=== PATIENT | female | born 1940 | race Caucasian/White ===

== ENCOUNTER 2020-08-03 23:32 | Emergency (ER) | payer MEDICARE, BC, SELFPAY ==
[2020-08-03 23:32] VITALS: BP 164/78; PULSE 68; RESP 8; TEMP 36.4; O2SAT 99; BMI 28.3
--- NOTE | 2020-08-04 00:09 | EKG12_ITS ---
Test Reason : Blood Pressure : / mmHG Vent. Rate : 063 BPM Atrial Rate : 063 BPM P-R Int : 148 ms QRS Dur : 094 ms QT Int : 424 ms P-R-T Axes : 085 -04 -13 degrees QTc Int : 433 ms Normal sinus rhythm Minimal voltage criteria for LVH, may be normal variant Nonspecific T wave abnormality Abnormal ECG Confirmed by ANALIA LANZA, CHRISTIANO ([id number]), editor publications SERGEY SUBRAMANIAN ([id number]) on 08/07/2020 2:50:30 PM Referred By: JUAN Confirmed By:CHRISTIANO HELMS MD
--- NOTE | 2020-08-04 00:09 | CT_ITS ---
STUDY: CT ABDOMEN AND PELVIS WITHOUT CONTRAST REASON FOR EXAM: Female, 80 years old. Pain upper abd, nausea RADIATION DOSAGE (If Supplied By Facility): CTDIvol = ( 8.85 ) mGy, DLP = ( 384.64 ) mGycm TECHNIQUE: Transaxial images were obtained from the dome of the diaphragm to the symphysis pubis without oral contrast, and without intravenous contrast. Sagittal and coronal images were reconstructed. Individualized dose optimization techniques were used for this CT. COMPARISON: None. FINDINGS: Questionable mass in the right lung base measuring 4.8 x 2.6 cm. Otherwise, lung bases are clear. The visualized portions of the heart are within normal limits. Normal liver. Normal gallbladder and extrahepatic biliary system. Normal spleen. Normal pancreas. Normal bilateral adrenal glands. Normal right kidney. Normal left kidney. Normal visualized stomach. Normal small intestine. There are multiple colonic diverticula consistent with diverticulosis. There is non-visualization of the appendix. There is diffuse atherosclerotic calcification of the abdominal aorta, without a demonstrated aneurysm. Normal inferior vena cava. Normal retroperitoneum. Normal urinary bladder. There is atrophy of the uterus. Normal abdominal wall. There are diffuse degenerative changes of the visualized lumbar spine. Vertebral plane of the T12 vertebral body CT/Abdomen/Pelvis without Cont IMPRESSION: No acute intracranial pathology. Suspected mass in the right lung base. Consider PET/CT to further follow-up versus tissue sampling. Pulmonary consultation recommended Electronically Signed: Ezra Baeza DO at 1:23 EDT Tel , Service support ,
--- NOTE | 2020-08-04 00:10 | ED.VIS.GI ---
HPI HPI - GI History of Present Illness Chief Complaint: Abd Pain Informant: patient and family (son) Abdominal Pain/Flank Pain Onset: Today (several hours) Context: Gradual Onset Timing: Continuous Quality: Aching Location: Epigastric Current Severity: Moderate Maximum Severity: Moderate Worsened by: Nothing Relieved by: Nothing Nausea/Vomiting/Emesis GI Symptom: Positive for Nausea; Negative for Vomiting Diarrhea/Melena/Hematochezia GI Symptom: Positive for Diarrhea; Negative for Melena and Hematochezia Onset: Today Stool Quality: Positive for Watery Episodes: 2 Associated Symptoms Associated Symptoms: Negative for Dysuria, Frequency, Hematuria and Urgency Narrative Narrative: 80-year-old female who was hospitalized several weeks ago for congestive heart failure in [place] where she used to live, presenting tonight with upper abdominal pain, nausea, couple bouts of watery nonbloody nonmelanotic diarrhea. No fevers or chills. She denies any shortness of breath or chest pains up into her chest. She is on Eliquis but neither her nor her son know exactly why. He states he does not know of any blood clots or dysrhythmias but she has an ejection fraction around 35%. She chronically has edema in her legs, that is similar to usual right now, she was recently diuresed fairly aggressively in the hospital before she came back here to live with her son, she traveled around 6 days ago. She denies any sick contacts that she knows of. She has never had Covid, and she declined to get the vaccine. She denies having any suspicious foods lately that she feels could be related to this. [facility] Medical History Asthma Congestive heart failure (CHF) Diabetes Heart failure with reduced left ventricular function Home Medications Unobtainable 08/04/20 [History Last Taken Unknown] pantoprazole [Protonix] 40 mg PO DAILY #14 tab 08/04/20 [Rx Last Taken Unknown] Allergy/AdvReac Type Severity Reaction Status Date / Time Penicillins Allergy PT UNSURE Verified 08/03/20 23:35 OF REACTION Surgical History History of Social History Smoking Status: Unknown if ever smoked ROS ROS ED Constitutional Constitutional ED: Denies chills or fever(s) Eyes Eyes: Denies change in vision or diplopia ENT ENT ED: Denies rhinorrhea or sore throat Cardiovascular Cardiovascular: Denies chest pain or palpitations Respiratory/Chest Respiratory/Chest: Denies cough or dyspnea Gastrointestinal Gastrointestinal: Reports as per HPI, abdominal pain, diarrhea and nausea; Denies vomiting Genitourinary Genitourinary ED: Denies dysuria or hematuria Musculoskeletal Musculoskeletal: Denies back pain or neck pain Integumentary Denies abscess or rash Neurologic Neurologic: Denies headache(s), paresthesias or weakness Psychiatric Psychiatric: Denies anxiety or suicidal thoughts EXAM Physical Exam Const Vital Signs: 08/03/20 23:32 08/04/20 01:31 Temperature 97.6 F L 98.1 F Temperature Source Temporal Temporal Pulse Rate 68 72 Respiratory Rate 8 L 16 Blood Pressure 164/78 H 176/71 H Blood Pressure Mean 106 106 Pulse Ox 99 99 Oxygen Delivery Method Room Air Nasal Cannula Oxygen Flow Rate (L/min) 2 Positive well nourished and well developed General Appearance ED: well developed and NAD HEENT Reports moist mucous membranes normocephalic and atraumatic Eyes PERRL and EOMs intact bilaterally Neck full ROM and supple Resp normal respiratory effort and clear to auscultation bilaterally Cardio regular rate, regular rhythm and no murmurs GI non-distended Auscultation: normoactive bowel sounds Palpation: soft and tender other (Mildly tender across upper abdomen only); Negative for guarding or rebound tenderness present Back/Spine no CVA tenderness General Back: other FROM Extremity normal to inspection General Extremety ED: Negative for edema, pulses abnormal or tenderness General Extremity: Negative for edema or pulses abnormal Neuro oriented x3, CN's II-XII intact bilaterally and no sensory deficits noted Sensorium / Orientation: awake and alert Motor Exam: strength 5/5 throughout Skin no rashes or lesions noted and no wounds MDM MDM MDM Narrative Medical decision making narrative: Patient was given a GI cocktail, Zofran, and dicyclomine and she feels much better on reevaluation. Work-up as noted below, renal insufficiency as well as the mass in her right lung. This was not known to her. We discussed the possibility of cancer, but there is no lymphadenopathy noted on the CT. She smoked for 10 years and stopped maybe 25 years ago. She does not have a history of other cancer that she knows of. She did say something about having her omentum removed long ago but I am unclear why. I think this mass is incidental and probably unrelated to her symptoms tonight. She does not appear to be in acute congestive heart failure. Give her a dose of Protonix, her symptoms sound upper GI in etiology, as well as a prescription for a 2-week course and referrals to PCP, pulmonology, and cardiology. Additionally, I performed a bedside ultrasound since the patient is here at night when radiology ultrasound is not available, looking at her gallbladder; I see no stones, she has no sonographic Zaragoza's, and the wall is normal grossly. She and son are comfortable with this overall plan. Lab Data Attestation: I reviewed the patient's lab results. Labs: Laboratory Results - last 24 hr 08/04/20 08/04/20 08/04/20 00:14 00:35 01:30 WBC 9.0 RBC 3.26 L Hgb 10.0 L Hct 30.9 L MCV 94.8 MCH 30.7 MCHC 32.4 RDW Std Deviation 42.1 RDW Coeff of Arik 12.0 Plt Count 285 MPV 9.7 Immature Gran % (Auto) 0.300 Neut % (Auto) 62.1 Lymph % (Auto) 18.4 L Power % (Auto) 12.2 H Eos % (Auto) 6.3 H Baso % (Auto) 0.7 Absolute Neuts (auto) 5.6 Absolute Lymphs (auto) 1.65 Nucleated RBC % 0 Sodium 138 Potassium 4.4 Chloride 105 Carbon Dioxide 26.0 Anion Gap 7 BUN 58 H Creatinine 2.13 H Estim Creat Clear Calc 19.27 Est GFR (MDRD) Af Amer 29 L Est GFR (MDRD) Non-Af 24 L BUN/Creatinine Ratio 27.2 H Glucose 248 H Calcium 8.6 Total Bilirubin 0.30 AST 18 ALT 21 Alkaline Phosphatase 75 Troponin I 0.027 Total Protein 6.7 Albumin 3.0 L Globulin 3.7 Albumin/Globulin Ratio 0.8 L Lipase 68 L Urine Color Yellow Urine Clarity Clear Urine pH 6.0 Ur Specific [place] 1.010 Urine Protein 100 H Urine Glucose (UA) 250 H Urine Ketones Negative Urine Occult Blood 10 H Urine Nitrite Negative Urine Bilirubin Negative Urine Urobilinogen Normal Ur Leukocyte Esterase 100 H Urine RBC 0-5 SEEN Urine WBC 5-10 SEEN Ur Squamous Epith Cells 0-5 SEEN Urine Bacteria 0 SEEN Urine Mucus 0 SEEN Radiography Diagnostic Testing: Radiology Impression Abdomen/Pelvis CT 08/04/20 00:09 IMPRESSION: No acute intracranial pathology. Suspected mass in the right lung base. Consider PET/CT to further follow-up versus tissue sampling. Pulmonary consultation recommended Electronically Signed: Ezra Baeza DO at 1:23 EDT Tel , Service support , Chest X-Ray 08/04/20 00:55 IMPRESSION: Normal x-ray examination of the chest. Electronically Signed: Ezra Baeza DO at 1:14 EDT Tel , Service support , EKG Initial EKG: Attestation: I personally reviewed and interpreted this EKG as follows: Interpretation: Sinus Rhythm, No Acute Injury Pattern and Non-Specific ST Changes Prior EKG tracings: not available for review Discharge Plan Triage Chief Complaint: Abd Pain ED Provider: Jonny Jara Dx/Rx/DC Orders Clinical Impression: Acute upper abdominal pain, Mass of right lung Instructions: ED Epigastric Pain (Uncertain Cause) Prescriptions: New pantoprazole [Protonix] 40 mg tablet,delayed release (DR/EC) 40 mg PO DAILY Qty: 14 RF: 0 No Action Unobtainable RF: 0 Primary Care Provider: Care Physician,No Primary Referrals: Pasquale Cordero MD [STAFF PHYSICIAN] - Berlin Leahy MD [STAFF PHYSICIAN] - Brian Dumont Chi, MD [COURTESY STAFF PHYSICIAN] - Disposition Disposition: Home, self care
[2020-08-04] MEDS: Mag Hydrox/Al Hydrox/Simeth 30 ML UDC PO (00:25)
[2020-08-04] MEDS: Ondansetron 4 MG/2 ML Vial IV (00:25)
[2020-08-04] MEDS: Dicyclomine 10 MG Capsule 20 MG PO (00:25)
[2020-08-04 00:42] LABS: Absolute Lymphocyte Count 1.65 X10^3/uL (0.83-4.51); Absolute Neutrophil Count 5.6 X10^3/uL (2.0-7.7); Basophil# 0.06 X10^3/uL; Basophil% 0.7 % (0-1); Eosinophil# 0.56 X10^3/uL; Eosinophils% 6.3 % (0-5); Hematocrit 30.9 % (37-47); Lymphocyte # 1.65 X10^3/ul (0.83-4.51); Lymphocyte % 18.4 % (19-41); Mean Corp Hgb Conc 32.4 g/dL (32-36); Mean Corpuscular Hgb 30.7 pg (27.0-32.0); Mean Corpuscular Volume 94.8 fL (81-99); Mean Platelet Vol. 9.7 fl (6.2-12.0); Monocyte# 1.09 X10^3/uL; Monocyte% 12.2 % (0-10); NRBC Flagged by Analyzer 0 % (0-5); Neutrophil # 5.56 X10^3/uL (2.7-7.7); Neutrophil % 62.1 % (47-70); Platelet Count 285 K/mm3 (150-450); RBC Distribution Width SD 42.1 fl (35.1-43.9); Red Blood Count 3.26 M/mm3 (4.2-5.4)
[2020-08-04 00:44] LABS: ALB/GLOB Ratio 0.8 RATIO (0.9-2.4); AST(SGOT) 18 U/L (15-37); Alanine Aminotransfer ALT/SGPT 21 U/L (13-56); Alkaline Phosphatase 75 U/L (45-117); Anion Gap 7 (5-15); BUN 58 mg/dL (7-18); BUN/Creat Ratio 27.2 RATIO (10-20); Calcium,Total 8.6 mg/dL (8.5-10.1); Chloride 105 mmol/L (98-107); Creatinine, Serum 2.13 mg/dL (0.55-1.02); EST Glomerular Filtration Rate 24 mL/min (>60); Est Glom Filt Rate - Afr Amer 29 mL/min (>60); Estimated Creatinine Clearance 19.27 ml/min; Globulin 3.7 g/dL (2.2-4.2); Glucose 248 mg/dL (74-106); Lipase 68 U/L (73-393); Potassium 4.4 mmol/L (3.5-5.1); Protein, Total 6.7 g/dL (6.4-8.2); Sodium Level 138 mmol/L (136-145)
--- NOTE | 2020-08-04 00:55 | RAD_ITS ---
STUDY: X-RAY CHEST REASON FOR EXAM: Female, 80 years old. upper abd pain, CHF TECHNIQUE: Single AP portable view of the chest. COMPARISON: None. FINDINGS: The lungs are clear and expanded. There is no demonstrated pleural abnormality. There is borderline cardiomegaly. Normal mediastinum and nilay. Normal visualized pulmonary arteries. Normal visualized aortic arch and descending thoracic aorta. Normal visualized thoracic spine. Normal visualized ribs, clavicles, and shoulders. There is no demonstrated abnormality of the visualized soft tissue structures of the upper abdomen. RAD/Chest 1 View (Portable) IMPRESSION: Normal x-ray examination of the chest. Electronically Signed: Ezra Baeza DO at 1:14 EDT Tel , Service support ,
[2020-08-04 01:31] VITALS: BP 176/71; PULSE 72; RESP 16; TEMP 36.7; O2SAT 99
[2020-08-04 01:37] LABS: Bacteria 0 SEEN /hpf (None Seen); Color, Urine Yellow (Yellow); Glucose, Dipstick 250 mg/dl (Normal); Ketone-Dipstick Negative (Negative); Leukocyte Esterase-Dipstick 100 /ul (Negative); Mucous, Urine 0 SEEN /hpf (<or=2+); Nitrite-Dipstick Negative (Negative); Occult Blood-Urine 10 /ul (Negative); Protein-Dipstick 100 mg/dl (Negative); Urine Bilirubin Dipstick Negative (Negative); Urine Clarity Clear (Clear); Urine Urobilinogen Normal (Normal)
[2020-08-04 01:42] LABS: Red Blood Cells-Urine 0-5 SEEN /hpf (0-5); Squamous Epithelial Cells - UA 0-5 SEEN /hpf (5-10); White Blood Cells 5-10 SEEN /hpf (0-5)
[2020-08-04] MEDS: Pantoprazole Sodium 40 MG Tablet PO (02:54)
== END 2020-08-04 02:57 | disposition home or self-care (01) ==
PROVIDERS: Emergency Provider Emergency Medicine
DX: R10.13 Epigastric pain (principal); R91.8 Other nonspecific abnormal finding of lung field; E11.9 Type 2 diabetes mellitus without complications; Z79.01 Long term (current) use of anticoagulants; Z79.899 Other long term (current) drug therapy; Z87.891 Personal history of nicotine dependence
CPT/HCPCS: 71045; 74176; 80053; 81001; 83690; 84484; 85025; 87426; 93005; 96374; 99284; A4216; J2405

== ENCOUNTER 2020-08-07 11:33 | Emergency (ER) | payer MEDICARE, BC, SELFPAY ==
[2020-08-07 11:34] VITALS: BP 183/71; PULSE 70; RESP 19; TEMP 37.2; O2SAT 99; BMI 28.3
[2020-08-07 11:39] VITALS: BP 183/71; PULSE 70; RESP 19; TEMP 37.2; O2SAT 99
[2020-08-07 11:40] VITALS: O2SAT 98
[2020-08-07 12:00] VITALS: O2SAT 99
--- NOTE | 2020-08-07 12:00 | EKG12_ITS ---
Test Reason : SOB Blood Pressure : / mmHG Vent. Rate : 070 BPM Atrial Rate : 070 BPM P-R Int : 144 ms QRS Dur : 088 ms QT Int : 424 ms P-R-T Axes : 072 -07 021 degrees QTc Int : 457 ms Normal sinus rhythm Nonspecific ST abnormality Abnormal ECG Confirmed by ANALIA LANZA, CHRISTIANO ([id number]), scientific editor SERGEY SUBRAMANIAN ([id number]) on 08/08/2020 10:06:19 AM Referred By: IGLESIA Confirmed By:CHRISTIANO HELMS MD
--- NOTE | 2020-08-07 12:01 | ED.VIS.DYS ---
HPI History of Present Illness Chief Complaint: Shortness of Breath Narrative Narrative: 80-year-old female presenting with dyspnea. Her son gives most of the history. He states this is an acute on chronic issue. Her son also states she had palpitations last evening. he states that she recently was moved from [place] to be near him. He states he has a history of CHF, diabetes, hypertension. Patient has not had a fever, chills, cough, nausea, vomiting. Patient has no change in taste or smell. She was tested for COVID-19 a few days ago when she was seen in the emergency room and this was negative. She has not had a Covid vaccines. 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 Home Medications Unobtainable 08/04/20 [History Last Taken Unknown] pantoprazole [Protonix] 40 mg PO DAILY #14 tab 08/04/20 [Rx Last Taken Unknown] Allergy/AdvReac Type Severity Reaction Status Date / Time Penicillins Allergy PT UNSURE Verified 08/07/20 11:34 OF REACTION Surgical History History of Social History Smoking Status: Former smoker ROS ROS ED Constitutional Constitutional ED: Denies chills, fever(s) or sweats Eyes Eyes: Denies blurry vision or change in vision ENT ENT ED: Denies ear pain, rhinorrhea or sore throat Cardiovascular Cardiovascular: Reports palpitations; Denies chest pain or racing heartbeat Respiratory/Chest Respiratory/Chest: Reports dyspnea; Denies cough or sputum Gastrointestinal Gastrointestinal: Denies abdominal pain, constipation, diarrhea or vomiting Genitourinary Genitourinary ED: Denies dysuria, hematuria or urinary frequency Musculoskeletal Musculoskeletal: Denies arthralgias, myalgias or neck pain Integumentary Denies abscess, Abrasions or rash Neurologic Neurologic: Denies headache(s), paresthesias or weakness Psychiatric Psychiatric: Denies anxiety, depression, suicidal ideation or suicidal thoughts Endocrine Endocrinology: Denies polydipsia or polyuria EXAM Physical Exam Const Vital Signs: 08/07/20 11:34 08/07/20 11:39 08/07/20 11:40 Temperature 98.9 F 98.9 F Temperature Source Oral Oral Pulse Rate 70 70 Respiratory Rate 19 H 19 H Respiratory Effort Normal Non-Labored Respiratory Depth Normal Respiratory Pattern Normal Blood Pressure 183/71 H 183/71 H Blood Pressure Mean 108 108 Pulse Ox 99 99 Oxygen Delivery Method Room Air Room Air Room Air 08/07/20 12:00 Temperature Temperature Source Pulse Rate Respiratory Rate Respiratory Effort Respiratory Depth Respiratory Pattern Blood Pressure Blood Pressure Mean Pulse Ox 99 Oxygen Delivery Method Room Air General Appearance ED: Negative for pallor HEENT Reports normocephalic, head/scalp atraumatic and moist mucous membranes Eyes PERRL and EOMs intact bilaterally Neck no lymphadenopathy and supple Chest Wall inspection of chest normal and palpation of chest normal Resp normal respiratory effort and clear to auscultation bilaterally Auscultation: Negative for rales, rhonchi or wheezes Cardio regular rate and regular rhythm GI normal to inspection, nondistended, normoactive bowel sounds and non-distended Auscultation: normoactive bowel sounds Palpation: soft Narrative: Deferred Back/Spine no CVA tenderness General Back: Negative for CVA tenderness Cervical Spine: Negative for cervical spine tenderness Extremity normal to inspection General Extremety ED: Yes edema and tenderness General Extremity: edema Neuro oriented x3 and CN's II-XII intact bilaterally Sensorium / Orientation: alert Motor Exam: strength 5/5 throughout Psych mental status grossly normal Attitude: No agitated Skin no rashes or lesions noted and no wounds General Skin Exam: Negative for jaundice or pallor MDM MDM MDM Narrative Medical decision making narrative: 80-year-old female presenting with dyspnea. On initial examination her respiratory rate is 16 and her pulse ox is 100% on room air. She states he is dyspneic at this very minute with normal vital signs. Since patient has history of heart failure I will obtain a work-up. EKG is sinus rhythm at 70 bpm without signs of ischemic change as interpreted by myself. Chest x-ray shows no acute cardiopulmonary process as interpreted by myself and radiology does agree. Patient has no leukocytosis. Hemoglobin stable at 10.5 and this is actually higher than previous. Electrolytes are within normal limits. Patient has renal function which is actually improved since her last visit. Troponin is negative. 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 Patient stable for discharge. Impression: 1. Dyspnea Lab Data Labs: Laboratory Results - last 24 hr 08/07/20 08/07/20 12:37 12:37 WBC 7.5 RBC 3.44 L Hgb 10.5 L Hct 32.0 L MCV 93.0 MCH 30.5 MCHC 32.8 RDW Std Deviation 41.7 RDW Coeff of Arik 12.1 Plt Count 285 MPV 9.6 Immature Gran % (Auto) 0.300 Neut % (Auto) 67.9 Lymph % (Auto) 14.9 L [place] % (Auto) 10.3 H Eos % (Auto) 5.9 H Baso % (Auto) 0.7 Absolute Neuts (auto) 5.1 Absolute Lymphs (auto) 1.11 Nucleated RBC % 0 Sodium 138 Potassium 4.2 Chloride 106 Carbon Dioxide 28.0 Anion Gap 4 L BUN 41 H Creatinine 1.42 H Estim Creat Clear Calc 28.91 Est GFR (MDRD) Af Amer 46 L Est GFR (MDRD) Non-Af 38 L BUN/Creatinine Ratio 28.9 H Glucose 204 H Calcium 9.2 Troponin I 0.022 Radiography Diagnostic Testing: Radiology Impression Chest X-Ray 08/07/20 13:05 IMPRESSION: No acute pulmonary process, no interval change Electronically Signed: Juan Ford MD at 13:20 EDT , Service support , Discharge Plan Triage Chief Complaint: Shortness of Breath ED Provider: Sukhi Jackman Dx/Rx/DC Orders Instructions: ED Dyspnea Prescriptions: No Action Unobtainable RF: 0 pantoprazole [Protonix] 40 mg tablet,delayed release (DR/EC) 40 mg PO DAILY Qty: 14 RF: 0 Primary Care Provider: Care Physician,No Primary Referrals: Care Physician,No Primary [Primary Care Provider] - Disposition Disposition: Home, self care
[2020-08-07] MEDS: Aspirin 81 MG TAB.CHEW 324 MG PO (12:12)
[2020-08-07 12:47] LABS: Absolute Lymphocyte Count 1.11 X10^3/uL (0.83-4.51); Absolute Neutrophil Count 5.1 X10^3/uL (2.0-7.7); Basophil# 0.05 X10^3/uL; Basophil% 0.7 % (0-1); Eosinophil# 0.44 X10^3/uL; Eosinophils% 5.9 % (0-5); Hemoglobin 10.5 g/dL (12.0-15.0); Lymphocyte # 1.11 X10^3/ul (0.83-4.51); Lymphocyte % 14.9 % (19-41); Mean Corp Hgb Conc 32.8 g/dL (32-36); Mean Corpuscular Hgb 30.5 pg (27.0-32.0); Mean Platelet Vol. 9.6 fl (6.2-12.0); Monocyte# 0.77 X10^3/uL; Monocyte% 10.3 % (0-10); NRBC Flagged by Analyzer 0 % (0-5); Neutrophil # 5.08 X10^3/uL (2.7-7.7); Neutrophil % 67.9 % (47-70); Platelet Count 285 K/mm3 (150-450); RBC Distribution Width CV 12.1 % (11.6-14.6); RBC Distribution Width SD 41.7 fl (35.1-43.9); Red Blood Count 3.44 M/mm3 (4.2-5.4); White Blood Count 7.5 K/mm3 (4.4-11.0)
[2020-08-07 13:04] LABS: Anion Gap 4 (5-15); BUN 41 mg/dL (7-18); BUN/Creat Ratio 28.9 RATIO (10-20); Calcium,Total 9.2 mg/dL (8.5-10.1); Chloride 106 mmol/L (98-107); Creatinine, Serum 1.42 mg/dL (0.55-1.02); EST Glomerular Filtration Rate 38 mL/min (>60); Est Glom Filt Rate - Afr Amer 46 mL/min (>60); Estimated Creatinine Clearance 28.91 ml/min; Glucose 204 mg/dL (74-106); Potassium 4.2 mmol/L (3.5-5.1); Sodium Level 138 mmol/L (136-145)
--- NOTE | 2020-08-07 13:05 | RAD_ITS ---
STUDY: X-RAY CHEST REASON FOR EXAM: Female, 80 years old. Substernal chest pain TECHNIQUE: Single AP portable view of the chest. COMPARISON: 08/05/2019 FINDINGS: EKG leads overlie the chest The lungs are clear and expanded. There is no demonstrated pleural abnormality. Normal size heart. Normal mediastinum and nilay. Normal visualized pulmonary arteries. Normal visualized aortic arch and descending thoracic aorta. Normal visualized thoracic spine. There is degenerative osteoarthritis of the bilateral shoulders. There is no demonstrated abnormality of the visualized soft tissue structures of the upper abdomen. RAD/Chest 1 View (Portable) IMPRESSION: No acute pulmonary process, no interval change Electronically Signed: Juan Ford MD at 13:20 EDT , Service support ,
== END 2020-08-07 14:15 | disposition home or self-care (01) ==
PROVIDERS: Emergency Provider Student in an Organized Health Care Education/Training Program
DX: R06.02 Shortness of breath (principal); I11.0 Hypertensive heart disease with heart failure; I50.9 Heart failure, unspecified; Z79.899 Other long term (current) drug therapy; Z87.891 Personal history of nicotine dependence
CPT/HCPCS: 71045; 80048; 84484; 85025; 93005; 99285

== ENCOUNTER → 2020-08-16 13:05 | Outpatient (CLI) | payer MEDICARE, BC, SELFPAY ==
[2020-08-09 11:51] VITALS: BMI 30.4
[2020-08-16 10:06] VITALS: BMI 30.4
--- NOTE | 2020-08-16 13:14 | CT_ITS ---
STUDY: CT CHEST WITHOUT CONTRAST REASON FOR EXAM: Female, [address] of abdomen, dyspnea RADIATION DOSAGE (If Supplied By Facility): CTDIvol = ( 11.96 ) mGy, DLP = ( 454.13 ) mGycm TECHNIQUE: Transaxial imaging was performed without the administration of intravenous contrast material. Multiplanar coronal and sagittal images were reformatted. Individualized dose optimization techniques were used for this CT. COMPARISON: Comparison is made with prior CT scan of the abdomen dated 08/04/2020. FINDINGS: There is a 5.3 cm x 2.4 cm nodular mass in the posterior aspect of the right lower lobe abutting the posterior right hemidiaphragm and pleural surfaces. A neoplastic process should be ruled out. Correlation with PET scan is recommended. There is linear density in the lateral aspect of the right lower lobe suggestive of possible scarring. Mild scarring is also seen at the left lung base. There are calcifications of the coronary arteries. There are multiple small lymph nodes within the mediastinum, which are normal in size and morphology most compatible with reactive lymph hyperplasia. Normal hilar regions. Normal unenhanced pulmonary arteries. There is atherosclerotic calcification of the aortic arch with tortuosity and elongation of the aortic arch and descending thoracic aorta. There are multi-level degenerative changes of the thoracic spine. There is almost complete collapse of the lower dorsal vertebrae. There is no demonstrated abnormality of the visualized upper abdomen. CT/Chest without Contrast IMPRESSION: 5.3 cm x 2.4 cm nodular mass in the posterior aspect of the right lower lobe abutting the posterior right hemidiaphragm and pleural surfaces. A neoplastic process should be ruled out. Correlation with a PET scan is recommended. Mild basilar scarring at the lung bases. Complete collapse of a lower dorsal vertebrae. Electronically Signed: Mayo Tam MD at 13:50 EDT , Service support ,
== END ==
PROVIDERS: PCP Nurse Practitioner Adult Health; Referring Provider Nurse Practitioner Adult Health; Visit Provider Nurse Practitioner Adult Health
DX: R93.5 Abnormal findings on diagnostic imaging of other abdominal regions, including retroperitoneum (principal); R91.8 Other nonspecific abnormal finding of lung field; R06.89 Other abnormalities of breathing
CPT/HCPCS: 71250

== ENCOUNTER → 2020-08-17 11:52 | Outpatient (CLI) | payer MEDICARE, SELFPAY ==
[2020-08-16 10:06] VITALS: BMI 30.4
[2020-08-17 12:13] LABS: Absolute Lymphocyte Count 1.16 X10^3/uL (0.83-4.51); Absolute Neutrophil Count 7.7 X10^3/uL (2.0-7.7); Basophil# 0.05 X10^3/uL; Basophil% 0.5 % (0-1); Eosinophil# 0.56 X10^3/uL; Eosinophils% 5.3 % (0-5); Hematocrit 33.1 % (37-47); Hemoglobin 10.8 g/dL (12.0-15.0); Lymphocyte # 1.16 X10^3/ul (0.83-4.51); Lymphocyte % 10.9 % (19-41); Mean Corp Hgb Conc 32.6 g/dL (32-36); Mean Corpuscular Hgb 30.7 pg (27.0-32.0); Mean Platelet Vol. 9.2 fl (6.2-12.0); Monocyte# 1.15 X10^3/uL; Monocyte% 10.8 % (0-10); NRBC Flagged by Analyzer 0 % (0-5); Neutrophil # 7.69 X10^3/uL (2.7-7.7); Neutrophil % 72.1 % (47-70); Platelet Count 296 K/mm3 (150-450); RBC Distribution Width CV 12.1 % (11.6-14.6); RBC Distribution Width SD 41.9 fl (35.1-43.9); Red Blood Count 3.52 M/mm3 (4.2-5.4); White Blood Count 10.7 K/mm3 (4.4-11.0)
[2020-08-17 12:22] LABS: International Normalized Ratio 1.2; Prothrombin Time (Protime)PT. 14.5 SECONDS (11.7-14.9)
== END ==
PROVIDERS: PCP Nurse Practitioner Adult Health; Referring Provider Internal Medicine Critical Care Medicine; Visit Provider Internal Medicine Critical Care Medicine
DX: I50.20 Unspecified systolic (congestive) heart failure (principal)
CPT/HCPCS: 36415; 85025; 85610

== ENCOUNTER → 2020-08-24 07:51 | Outpatient (CLI) | payer MEDICARE, SELFPAY ==
[2020-08-16 10:06] VITALS: BMI 30.4
[2020-08-24] VITALS (13 sets, daily range): BP systolic 130–179; BP diastolic 51–96; PULSE 78–90; RESP 14–24; TEMP 36.5; O2SAT 92–100; BMI 27.1
--- NOTE | 2020-08-24 | IMM_PTH ---
PATIENT: PAPI RANDHAWA LOC: CT U#:[id number] AGE/SX: 84/F ROOM: RE08/24/[address]: Dr. Jaime Spain DO : 1940 BED: DIS: SPEC #: [id number] RECD: 08/25/20 13:05 STATUS: TAMARA REQ #: [id number] RADHA: 08/24/20 00:[address]: Jaime Spain DEPT: IMMUNOHISTOCHEMISTRY RECD BY: Pari Ramsey ENTERED: 08/25/20 13:07 SP TYPE: IMMUNO OTHR DR: Lizy Correa, INTRUSION ANALYST-C Tissues: Right lower lobe of lung, NOS Procedures: RCC (add) NAPSIN A (add) CK20 (add) CK5-6 (add) CK7 (add) CK8 (add) HEP PAR (add) CT (add) TTF1 (add) Pankeratin (add) P40 (add) ER (initial) PHYSICIAN & [address] [address] SPECIMEN INFORMATION: Tissue Source: RLL lung nodule Clinical Info: RLL lung nodule Specimen Number: [id number] CPT code: 74396, 42754 x11 METHODOLOGY: Deparaffinized sections of prefer/formalin-fixed tissue or PAP/DQ stained slides are incubated with monoclonal/polyclonal antibodies/oligonucleotide probes. Localization is made via biotin free immunoperoxidase method. Appropriate controls are performed and reacted as expected. Results on target cell population are indicated in the following table: RESULTS: ANTIBODY / CLONE RESULT ER (6F11) negative CT (1E2) negative AE1-3 (AE1/AE3/PCK26) positive CK7 (OV-TL12/30) positive CK8 (71isosT96) positive CK20 (KS20.8) positive, a few cells TTF-1 (8G7G3/1) positive Napsin A (Rabbit Polyclonal) positive, focal HepPar (OCh1E5) negative RCC (PN-15) negative CK5-6 (D5 & 1684) negative P40 (BC28) negative These tests were developed and their performance characteristics determined by [facility]. They may not have been cleared or approved by the U.S. Food and Drug Administration. The FDA has determined that such clearance or approval is not necessary. The above immunohistochemical/dualISH markers are ordered and reviewed by the Pathologist. INTERPRETATION: RLL lung nodule, CT-guided biopsy: Non-small cell carcinoma, favor adenocarcinoma, mucinous bronchioloalveolar type. :riki 08/28/2020
--- NOTE | 2020-08-24 | ASPIGT_PTH ---
PATIENT: PAPI RANDHAWA LOC: [place] U#:[id number] AGE/SX: 84/F ROOM: RE08/24/[address]: Dr. Jaime Spain DO : 1940 BED: DIS: SPEC #: [id number] RECD: 08/24/20 10:00 STATUS: TAMARA TRINO #: [id number] RADHA: 08/24/20 00:[address]: Jaime Spain DEPT: SURGICAL PATHOLOGY RECD BY: Sharath Emery ENTERED: 08/24/20 11:29 SP TYPE: ASP RAD OTHR DR: Lizy Correa, TOBACCO SORTER-C Tissues: Lung, NOS Procedures: FNA Specimen Adequacy Special Stain Group II Special Stain Group I Mucicarmine Stain (control) Surgery Specimen Level IV Imprint (control) HEADER OPERATION: CT-guided RLL lung biopsy PRE-OP DIAGNOSIS: RLL lung nodule TISSUE SUBMITTED: RLL lung nodule 20-gauge MICROSCOPIC DIAGNOSIS Right lower lobe lung nodule, CT-guided core biopsy: Non-small cell carcinoma, favor adenocarcinoma, mucinous bronchioloalveolar type. See comment. SJ:riki 08/25/2020 COMMENT The specimen is evaluated at the time of biopsy by Dr. Thomas. Immediate Evaluation: Set 1 - Mostly macrophages, negative for malignant cells. Set 2 - Mostly macrophages, negative for malignant cells. Immunohistochemistry ([id number]) supports the above diagnosis. Molecular studies on the tumor can be performed if clinically indicated. Please notify the laboratory if they are needed. Mucin stain with matched control is used in the evaluation of the specimen and tumor cells are positive for mucin. Case has been reviewed in consultation with Dr. Fields who concurs with the above diagnosis. IDC:AM MICROSCOPIC DESCRIPTION Slides are reviewed. GROSS DESCRIPTION Received in fixative is one container labeled with the patient's name and designated RLL lung, CT-guided core biopsy. The specimen consists of multiple irregular fragments of jones soft tissue that in aggregate measure 2 x 0.1 x <0.1 cm. The specimen is totally submitted in one cassette. Five touch imprints are prepared at the time of core biopsy. / BENJAMIN:riki 08/24/20 TC:0 CPT: 90325, 04156, 43505
--- NOTE | 2020-08-24 07:53 | CT_ITS ---
PROCEDURE: CT GUIDED CORE NEEDLE BIOPSY OF A right lower lobe LUNG LESION INDICATION: Female, 80 years old. RLL Lung Mass PHYSICIAN: Dr. LIAT Rae CONSENT: Written informed consent was obtained having explained the risks, benefits and alternatives in detail with the patient who accepted the risks and agreed to proceed. Laboratory review and clinical assessment was performed. CONSCIOUS SEDATION PROTOCOL: The Drugs used were: 2 mg Versed, IV., and 50 mcg Fentanyl, IV. The sedation time was: 23 minutes. Conscious sedation was started 9:03 AM and terminated at 9:26 AM. The conscious sedation protocol was independently monitored. RADIATION DOSAGE (If Supplied By Facility): CTDIvol = ( 10 ) mGy, DLP = ( 361.71 ) mGycm Individualized dose optimization techniques were used for this CT. TECHNIQUE: The patient was placed in the prone position. A noncontrast CT was performed to localize the lesion in the right lower lobe pleural-based . The skin surface was prepped and draped in a sterile fashion. 1% lidocaine was used for local anesthesia. Using CT guidance, a 20-gauge coaxial biopsy device was advanced to the periphery of the lesion. A total of 5 core specimens were obtained. The specimens were placed in a formalin solution. A post procedure CT demonstrated no adverse sequelae or pneumothorax. The patient tolerated the procedure well without adverse event. A negative biopsy does not exclude malignancy. Further imaging or clinical followup based on patient condition and degree of clinical suspicion for malignancy. Suggest rebiopsy, if biopsy results do not match with clinical scenario. CT/Biopsy/Inj or Needle Placement IMPRESSION: 1. CT directed core needle biopsy of the right lower lobe pulmonary lesion using CT image guidance with image documentation as described. Pathology results are pending. 2. Conscious Sedation protocol utilized with independent monitoring. Electronically Signed: Mayo Tam MD at 9:47 EDT , Service support ,
[2020-08-24 08:37] LABS: Absolute Lymphocyte Count 1.44 X10^3/uL (0.83-4.51); Absolute Neutrophil Count 5.4 X10^3/uL (2.0-7.7); Basophil# 0.04 X10^3/uL; Basophil% 0.5 % (0-1); Eosinophil# 0.53 X10^3/uL; Hematocrit 29.7 % (37-47); Hemoglobin 9.5 g/dL (12.0-15.0); Lymphocyte # 1.44 X10^3/ul (0.83-4.51); Lymphocyte % 16.4 % (19-41); Mean Corpuscular Hgb 30.6 pg (27.0-32.0); Mean Corpuscular Volume 95.8 fL (81-99); Mean Platelet Vol. 9.8 fl (6.2-12.0); Monocyte# 1.32 X10^3/uL; NRBC Flagged by Analyzer 0 % (0-5); Neutrophil # 5.43 X10^3/uL (2.7-7.7); Neutrophil % 61.8 % (47-70); Platelet Count 271 K/mm3 (150-450); RBC Distribution Width CV 12.3 % (11.6-14.6); RBC Distribution Width SD 43.1 fl (35.1-43.9); White Blood Count 8.8 K/mm3 (4.4-11.0)
[2020-08-24 08:59] LABS: ALB/GLOB Ratio 0.9 RATIO (0.9-2.4); AST(SGOT) 16 U/L (15-37); Alanine Aminotransfer ALT/SGPT 25 U/L (13-56); Alkaline Phosphatase 87 U/L (45-117); Anion Gap 8 (5-15); BUN 49 mg/dL (7-18); BUN/Creat Ratio 32.9 RATIO (10-20); Calcium,Total 8.8 mg/dL (8.5-10.1); Chloride 105 mmol/L (98-107); Cholesterol 179 mg/dL (200); Creatinine, Serum 1.49 mg/dL (0.55-1.02); EST Glomerular Filtration Rate 36 mL/min (>60); Est Glom Filt Rate - Afr Amer 43 mL/min (>60); Estimated Creatinine Clearance 28.66 ml/min; Globulin 3.5 g/dL (2.2-4.2); Glucose 217 mg/dL (74-106); High Density Lipoprotein 51 mg/dL; Magnesium 2.1 mg/dL (1.6-2.6); Potassium 5.5 mmol/L (3.5-5.1); Protein, Total 6.5 g/dL (6.4-8.2); Sodium Level 139 mmol/L (136-145); Thyroid Stim Hormone (TSH) 0.91 uIU/mL (0.358-3.74); Triglycerides 138 mg/dL; Very Low Density Lipoprotein 28 mg/dL (5-40)
[2020-08-24 09:02] LABS: Vitamin D,25 Hydroxy 32.6 ng/mL
[2020-08-24] MEDS: Midazolam 2 MG/2 ML Syringe IV (09:03)
[2020-08-24] MEDS: fentaNYL 100 MCG/2 ML Ampul IV (09:06)
[2020-08-24 09:10] LABS: Hemoglobin A1c 9.7 % (3.8-5.6)
--- NOTE | 2020-08-24 09:30 | RAD_ITS ---
STUDY: X-RAY CHEST REASON FOR EXAM: Female, 80 years old. Post bx -- immediately post lung biopsy TECHNIQUE: AP inspiration and expiration views. COMPARISON: Comparison is made with prior chest radiograph dated 08/07/2020. FINDINGS: EKG electrodes are seen. No evidence of pneumothorax on the immediate post right lung biopsy radiographs. RAD/Chest Insp/Exp 2 View IMPRESSION: No evidence of pneumothorax on the immediate post right lung biopsy radiographs. Electronically Signed: Mayo Tam MD at 9:39 EDT , Service support ,
--- NOTE | 2020-08-24 11:30 | RAD_ITS ---
STUDY: X-RAY CHEST REASON FOR EXAM: Female, 80 years old. Post bx -- 2 hours post lung biopsy TECHNIQUE: AP inspiration and expiration views. COMPARISON: Comparison is made with prior study done earlier today. FINDINGS: There is no evidence of pneumothorax on the delayed post right lung biopsy radiographs. RAD/Chest Insp/Exp 2 View IMPRESSION: No evidence of pneumothorax on the delayed post right lung biopsy radiograph. Electronically Signed: Mayo Tam MD at 15:48 EDT , Service support ,
--- NOTE | 2020-08-24 12:16 | NURSING ---
Pt chest xray cleared by Dr. Tam at 1136. RickyRN helped pt get dressed, pt assisted to wheelchair and restroom prior to being wheeled out to main entrance with her son. Pt assisted into vehicle and informed one of the radiology nurses will call her to check in to see how she is feeling tomorrow. Pt and son aware to call Dr. Spain with any concerns. Pt denies pain, no SOB, lung sounds are clear throughout.
== END ==
PROVIDERS: PCP Nurse Practitioner Adult Health; Referring Provider Internal Medicine Critical Care Medicine; Visit Provider Internal Medicine Critical Care Medicine
DX: R91.8 Other nonspecific abnormal finding of lung field (principal); D64.9 Anemia, unspecified; R53.83 Other fatigue; E11.9 Type 2 diabetes mellitus without complications; E78.5 Hyperlipidemia, unspecified; E83.42 Hypomagnesemia; E55.9 Vitamin D deficiency, unspecified; I50.20 Unspecified systolic (congestive) heart failure
CPT/HCPCS: 32408; 71046; 77012; 80053; 80061; 82274; 82306; 83036; 83735; 84443; 85025; 88172; 88305; 88312; 88313; 88341; 88342; 99156; J7040; A4216; C2613

== ENCOUNTER → 2020-08-28 14:25 | Outpatient (CLI) | payer MEDICARE, SELFPAY ==
[2020-08-28 12:50] VITALS: BMI 26.9
[2020-08-28 14:51] LABS: Absolute Lymphocyte Count 1.07 X10^3/uL (0.83-4.51); Absolute Neutrophil Count 6.9 X10^3/uL (2.0-7.7); Basophil# 0.06 X10^3/uL; Basophil% 0.6 % (0-1); Eosinophil# 0.56 X10^3/uL; Eosinophils% 5.7 % (0-5); Hematocrit 29.7 % (37-47); Hemoglobin 9.8 g/dL (12.0-15.0); Lymphocyte # 1.07 X10^3/ul (0.83-4.51); Mean Corpuscular Hgb 30.9 pg (27.0-32.0); Mean Corpuscular Volume 93.7 fL (81-99); Mean Platelet Vol. 9.5 fl (6.2-12.0); Monocyte# 1.17 X10^3/uL; NRBC Flagged by Analyzer 0 % (0-5); Neutrophil # 6.85 X10^3/uL (2.7-7.7); Neutrophil % 70.1 % (47-70); Platelet Count 309 K/mm3 (150-450); RBC Distribution Width CV 11.9 % (11.6-14.6); Red Blood Count 3.17 M/mm3 (4.2-5.4); White Blood Count 9.8 K/mm3 (4.4-11.0)
[2020-08-28 15:20] LABS: Anion Gap 10 (5-15); BUN 40 mg/dL (7-18); BUN/Creat Ratio 22.1 RATIO (10-20); Chloride 101 mmol/L (98-107); Creatinine, Serum 1.81 mg/dL (0.55-1.02); EST Glomerular Filtration Rate 29 mL/min (>60); Est Glom Filt Rate - Afr Amer 35 mL/min (>60); Glucose 246 mg/dL (74-106); Potassium 4.6 mmol/L (3.5-5.1); Sodium Level 137 mmol/L (136-145)
[2020-08-28 22:48] LABS: Xtra Tube EP Lab EXTRA TUBE
== END ==
PROVIDERS: PCP Nurse Practitioner Adult Health; Referring Provider Nurse Practitioner Adult Health; Visit Provider Nurse Practitioner Adult Health
DX: R53.83 Other fatigue (principal); D50.8 Other iron deficiency anemias
CPT/HCPCS: 36415; 80048; 85025

== ENCOUNTER → 2020-09-01 08:40 | Outpatient (CLI) | payer MEDICARE, BC, SELFPAY ==
[2020-08-16 10:06] VITALS: BMI 30.4
[2020-08-29 14:36] VITALS: BMI 26.9
--- NOTE | 2020-09-01 08:51 | ECHOD_ITS ---
Version 3 Reason For Study: Dyspnea/SOB Procedure This was a 2D Doppler, Color Flow transthoracic echocardiogram. Myocardial strain analysis was performed in this exam to aid in the assessment of cardiac function. Exam performed in department. Left Ventricle Normal LV size. Moderate concentric left ventricular hypertrophy. The estimated ejection fraction is 40 %. Stage 3 diastolic dysfunction. There is moderate global hypokinesis of the left ventricle. Right Ventricle Normal RV size. Normal systolic function. Atria The left atrium is moderately enlarged. Normal right atrium. Mitral Valve Normal mitral valve. Mild-Moderate (1-2+) eccentric mitral valve insufficiency. Tricuspid Valve Normal tricuspid valve. Mild (1+) tricuspid valve insufficiency. Pulmonary artery systolic pressure is 33 mmHg. Aortic Valve Normal aortic valve. Trisinus/trileaflet aortic valve. Pulmonic Valve Normal pulmonic valve. Great Vessels Normal aortic root. The pulmonary artery is normal size. No collapse of the inferior vena cava. Pericardium/Pleural No pericardial effusion. MMode/2D Measurements & Calculations LVIDd: 4.6 cm IVSd: 1.5 cm LA dimension: 4.5 cm LVIDs: 3.6 cm LVPWd: 1.7 cm FS: 21.0 % LAV(MOD-bp): 80.4 ml LVAd ap4: 32.7 cm2 SV(MOD-sp4): 40.4 ml LAV(MOD-bp) Indexed: 43.4 ml/m2 LVLd ap4: 8.5 cm LAV(MOD-sp2): 72.0 ml EDV(MOD-sp4): 106.9 ml LAV(MOD-sp4): 89.2 ml EDV(sp4-el): 106.6 ml LVAs ap4: 23.8 cm2 LVLs ap4: 7.4 cm ESV(MOD-sp4): 66.5 ml ESV(sp4-el): 64.7 ml EF(MOD-sp4): 37.8 % EF(sp4-el): 39.3 % SV(sp4-el): 41.9 ml LA A4 area: 25.4 cm2 RA A4 area: 20.2 cm2 Time Measurements MV dec time: 0.22 sec Doppler Measurements & Calculations MV E max gonzalo: 124.6 cm/sec Lat Peak E' Gonzalo: 5.7 cm/sec Med Peak E' Gonzalo: 6.7 cm/sec MV A max gonzalo: 42.1 cm/sec E/E' lat: 21.9 E/E' med: 18.6 MV E/A: 3.0 MV V2 max: 132.7 cm/sec MV P1/2t max gonzalo: 132.7 cm/sec Ao V2 max: 110.5 cm/sec MV max P.0 mmHg MV P1/2t: 89.2 msec Ao max P.9 mmHg MV V2 mean: 48.1 cm/sec MV mean P.4 mmHg MV dec slope: 435.6 cm/sec2 MV V2 VTI: 44.6 cm MVA(P1/2t): 2.5 cm2 LV V1 max: 91.8 cm/sec PA V2 max: 83.0 cm/sec TR max gonzalo: 271.3 cm/sec LV V1 max P.4 mmHg TR max P.4 mmHg ECHO/Echo Complete Interpretation Summary Normal LV size. There is moderate global hypokinesis of the left ventricle. The estimated ejection fraction is 40 %. Moderate concentric left ventricular hypertrophy. The left atrium is moderately enlarged. Stage 3 diastolic dysfunction. The global longitudinal strain is moderately abnormal. The global longitudinal strain = -13.1% (abnormal). Ordering Physician: Jaime Spain Referring Physician: Lizy Correa Performed By: Glynn Marie RCS
[2020-09-01 09:20] LABS: Bedside Glucose 191 mg/dL (70-110)
--- NOTE | 2020-09-02 05:58 | PFTCOMP_ITS ---
COMPLETE PULMONARY FUNCTION TEST INTERPRETATION Brief HPI: Patient is a 80 year old female, currently under the care of Dr. Spain, who presents to [facility] for complete pulmonary function tests secondary to diagnosis of dyspnea. Respiratory therapist reports good effort and reproducible results. Interpretation: Forced expiration spirometry shows a moderately severe large airways obstructive ventilatory defect with an FEV1 of 51% predicted. There is a significant bronchodilator response in FVC by strict ATS criteria. Spirograms are of good quality and plateau slowly, indicating slowly emptying areas of the lungs. The respiratory flow volume loop shows decreased expiratory flow rates at all lung volumes consistent with airway obstruction. Lung volumes by body plethysmography show a decreased total lung capacity at 3.07 L, 60% predicted. All other lung volumes are reduced symmetrically. Diffusion capacity by carbon monoxide is decreased at 55% predicted. The airway resistance is elevated. No previous pulmonary function tests were available for review. Impression: Partially reversible moderately severe mixed ventilatory defect with a symmetric reduction diffusing capacity
== END ==
PROVIDERS: PCP Nurse Practitioner Adult Health; Referring Provider Internal Medicine Critical Care Medicine; Visit Provider Internal Medicine Critical Care Medicine
DX: R06.00 Dyspnea, unspecified (principal); R06.02 Shortness of breath
CPT/HCPCS: 82962; 93306; 94060; 94726; 94729

== ENCOUNTER 2020-09-05 09:34 | Inpatient (IN) | payer MEDICARE, BC, SELFPAY ==
[2020-08-29 14:36] VITALS: BMI 26.9
[2020-09-05] VITALS (12 sets, daily range): BP systolic 152–184; BP diastolic 60–116; PULSE 71–98; RESP 16–18; TEMP 36.6–37.1; O2SAT 93–98; BMI 27.4; BMI 27.1
--- NOTE | 2020-09-05 10:02 | RAD_ITS ---
STUDY: X-RAY CHEST REASON FOR EXAM: Female, 80 years old. sob lung ca TECHNIQUE: AP COMPARISON: 08/24/2020 FINDINGS: Linear fibrotic scar in the left lung base stable. No airspace consolidation. There is no demonstrated pleural abnormality. There is mild cardiac enlargement. Normal mediastinum and nilay. Normal visualized pulmonary arteries. There is atherosclerotic calcification of the aortic arch with tortuosity. No acute bony process. There is no demonstrated abnormality of the visualized soft tissue structures of the upper abdomen. RAD/Chest 1 View (Portable) IMPRESSION: Stable, nonacute portable x-ray examination of the chest. Electronically Signed: Todd Shaw MD (Brooks) at 11:40 EDT , Service support ,
--- NOTE | 2020-09-05 10:02 | EKG12_ITS ---
Test Reason : Blood Pressure : / mmHG Vent. Rate : 067 BPM Atrial Rate : 067 BPM P-R Int : 136 ms QRS Dur : 088 ms QT Int : 424 ms P-R-T Axes : 058 001 003 degrees QTc Int : 448 ms Normal sinus rhythm Normal ECG Confirmed by GRETCHEN LANZA, NAREN ([id number]), assignment desk editor SERGEY SUBRAMANIAN ([id number]) on 09/07/2020 10:01:43 AM Referred By: BENJAMIN Confirmed By:NAREN GODINEZ MD
--- NOTE | 2020-09-05 10:02 | RAD_ITS ---
STUDY: X-RAY - RIGHT FEMUR REASON FOR STUDY: Female, 80 years old. Fall TECHNIQUE: 2 view(s) of the femur. COMPARISON: None. FINDINGS: Normal visualized femur. Normal visualized soft tissue structure. There are atherosclerotic vascular calcifications. RAD/Femur Min 2 Views IMPRESSION: No demonstrated fracture or malalignment. Electronically Signed: Todd Shaw MD (Brooks) at 11:41 EDT , Service support ,
--- NOTE | 2020-09-05 10:02 | RAD_ITS ---
STUDY: X-RAY - PELVIS REASON FOR EXAM: Female, 80 years old. Fall hematoma blood thinner TECHNIQUE: One view of the pelvis was obtained. COMPARISON: None. FINDINGS: There is a non-specific bowel gas pattern. Normal visualized soft tissue structures. Degenerative changes of the lumbar spine. Normal bilateral iliac wings, sacroiliac joints and visualized sacrum. Normal visualized bilateral superior and inferior pubic rami. Normal pubic symphysis. Normal ischial tuberosities. Normal visualized right femoral head. There is osteoarthritic spur formation of the right acetabular rim. There is mild articular joint space narrowing of the right hip. Normal visualized left femoral head. There is osteoarthritic spur formation of the left acetabular rim. There is mild articular joint space narrowing of the left hip. RAD/Pelvis 1 or 2 Views IMPRESSION: No pelvic ring fracture. Electronically Signed: Todd Shaw MD (Brooks) at 11:41 EDT , Service support ,
--- NOTE | 2020-09-05 10:05 | EX.ED.DYSGE1 ---
HPI History of Present Illness Chief Complaint: Lower Extremity Injury Associated Symptoms Associated Symptoms: Patient presents with son complaint Narrative Narrative: Patient presents with son complaining of fall a few days ago with a large hematoma area of contusion involving the right mid thigh femur area laterally, she has a history of heart disease she is on Eliquis anticoagulant recently diagnosed with right lung cancer, she did not hit her head she was in a seated position trying to stand and she landed on the right side she indicates she is having progressive worsening pain in the center believes of the last few days the area of hematoma seems to have enlarged she had poor p.o. intake bowel bladder habits unremarkable difficulty getting around. 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 History of tobacco abuse Hyperlipidemia Hypertension Muscle weakness (generalized) Paroxysmal atrial fibrillation Recurrent falls Seasonal allergic reaction Type 2 diabetes mellitus Type II diabetes mellitus Type II diabetes mellitus with manifestations Visual impairment Home Medications acetaminophen 325 mg capsule 650 mg PO Q6H PRN cap 08/09/20 [History Last Taken Unknown] albuterol sulfate 90 mcg/actuation aerosol inhaler 1 puff INHALATION Q4H PRN g 08/09/20 [History Last Taken Unknown] aluminum-mag hydroxide-simethicone 400 mg-400 mg-40 mg/5 mL oral susp 10 ml PO DAILY PRN ml 08/09/20 [History Last Taken Unknown] apixaban 5 mg tablet 5 mg PO BID 08/09/20 [History Last Taken 08/18/20] atorvastatin 40 mg tablet 40 mg PO QHS 08/09/20 [History Last Taken Unknown] cholecalciferol (vitamin D3) 25 mcg (1,000 unit) capsule 25 mcg PO DAILY 08/09/20 [History Last Taken Unknown] ferrous sulfate 325 mg (65 mg iron) capsule,extended release 325 mg PO DAILY cap 08/09/20 [History Last Taken Unknown] fluticasone 232mcg-salmeterol 14mcg/actuation breath act,powder sensor 1 inh INHALATION Q12H #1 ea 08/09/20 [Rx Last Taken Unknown] guaifenesin 1,200 mg tablet, extended release 12 hr 1,200 mg PO Q12H PRN 08/09/20 [History Last Taken Unknown] hydrocortisone 1 % topical cream 1 applic TOPICAL TID PRN 08/09/20 [History Last Taken Unknown] insulin glargine 100 unit/mL (3 mL) subcutaneous pen 12 unit SUBCUT QHS ml 08/09/20 [History Last Taken Unknown] loperamide-simethicone 2 mg-125 mg tablet 1 tab PO DAILY PRN tab 08/09/20 [History Last Taken Unknown] losartan 100 mg tablet 100 mg PO DAILY 08/09/20 [History Last Taken Unknown] magnesium oxide 400 mg PO DAILY 08/09/20 [History Last Taken Unknown] metformin 1,000 mg tablet 1,000 mg PO BID 08/09/20 [History Last Taken Unknown] oyovwujwpncr-esqkxetj-rsdepl tablet 1 tab PO DAILY 08/09/20 [History Last Taken Unknown] omega-3 fatty acids 1,000 mg capsule 1,000 mg PO DAILY 08/09/20 [History Last Taken Unknown] oxybutynin 3.9 mg/24 hr semiweekly transdermal patch 1 patch TRANSDERMAL .as needed ea 08/09/20 [History Last Taken Unknown] oxymetazoline 0.05 % nasal spray 2 spray INTRANASAL Q12H PRN 08/09/20 [History Last Taken Unknown] sodium chloride 0.65 % nasal spray aerosol 2 spray INTRANASAL Q2H PRN 08/09/20 [History Last Taken Unknown] standard wheelchair #1 ea 08/11/20 [Rx Last Taken Unknown] standard wheelchair 1 ea OTHER DAILY #1 device 08/11/20 [Rx Last Taken Unknown] blood pressure test kit-large #1 ea 08/16/20 [Rx Last Taken Unknown] furosemide 20 mg tablet 20 mg PO DIRECTED #90 tab 08/16/20 [Rx Last Taken Unknown] verapamil 120 mg tablet 120 mg PO DAILY #30 tab 08/16/20 [Rx Last Taken Unknown] citalopram 10 mg tablet 10 mg PO DAILY #30 tab 08/17/20 [Rx Last Taken Unknown] Boostrix Tdap 2.5 Lf unit-8 mcg-5 Lf/0.5 mL intramuscular syringe 0.5 ml IM ONCE #1 ml NS 08/24/20 [Clinic Last Taken Unknown] albuterol sulfate 2.5 mg INHALATION Q6H #180 ml 08/24/20 [Rx Last Taken Unknown] pantoprazole 40 mg tablet,delayed release 40 mg PO DAILY #30 tab 08/24/20 [Rx Last Taken Unknown] metoprolol tartrate 100 mg tablet 50 mg PO BID #60 tab 08/25/20 [Rx Last Taken Unknown] spironolactone 25 mg tablet 25 mg PO DAILY #30 tab 08/25/20 [Rx Last Taken Unknown] fluticasone propionate 230 mcg-salmeterol 21 mcg/actuation HFA inhaler 2 puff INHALATION BID #12 g 08/28/20 [Rx Last Taken Unknown] Allergy/AdvReac Type Severity Reaction Status Date / Time Penicillins Allergy PT UNSURE Verified 09/05/20 09:38 OF REACTION Family History Mother Diabetes Heart disease Brother Cancer Surgical History History of Social History household members: none housing: apartment number of children: 3 current occupational status: retired current occupational exposures/hazards: No pets and animals: No history of recent travel: Yes (From [place]) details: Moved to [facility] to be closer to family out of state: Yes out of country: No Smoking Status: Former smoker quit date: 07/24/76 pack-years: 4 Tobacco: How many years used: 7 alcohol intake: current details: 1 glass wine 4 times a year. Social drinker. substance use type: does not use what type of physical activity do you participate in: none ROS ROS ED ROS Narrative Fall with right thigh contusion pain also complains of intermittent pain to the right flank EXAM Physical Exam Narrative Exam Narrative: She has a very large greater than 10 cm x 10 cm hematoma contusion to the lateral more proximal right femoral area, seems to track up to the area of the greater trochanter, the midline back is not tender abdomen soft nontender pelvis is stable she is moving all 4 extremities distal neurovascular is stable and unremarkable she is awake complaining bitterly of pain Const Vital Signs: 09/05/20 09:35 Temperature 98.7 F Temperature Source Temporal Pulse Rate 71 Respiratory Rate 16 Blood Pressure 162/116 H Blood Pressure Mean 131 Pulse Ox 95 Oxygen Delivery Method Room Air Positive well developed General Appearance ED: well developed HEENT Reports normocephalic Negative for trauma Eyes EOMs intact bilaterally Neck supple Chest Wall inspection of chest normal Resp normal respiratory effort Cardio regular rate GI non-tender and non-distended Back/Spine Back/Spine Narrative: unremarkable Extremity General Extremety ED: Yes tenderness Neuro oriented x3 and CN's II-XII intact bilaterally Sensorium / Orientation: alert Psych mental status grossly normal Skin no rashes or lesions noted MDM MDM MDM Narrative Medical decision making narrative: Given all the above differentials extensive screening labs x-ray CT flank related to the flank pain the trauma and the contusion retroperitoneal hematoma is in the differential as well as other diagnostic issues, pain management The patient's hip x-ray Multiview femur x-ray multiview to my review shows nothing acute no signs of fracture, chest x-ray shows chronic change I do not see the obvious neoplasm see the radiology reports, CT abdomen pelvis report is pending see that report, hemoglobin is 9.3 baseline about 9.6, see labs are generally within normal range for her please see all those reports, at this time she is been managed with IV fluids and pain medication given all the above spoke with the hospitalist will arrange for admission for further management of this condition Admit stable Final impression large over 10 x 10 right lower extremity proximal thigh hematoma, history of Eliquis therapy, history of lung cancer, Lab Data Labs: Laboratory Results - last 24 hr 09/05/20 09/05/20 09/05/20 11:00 11:00 11:00 WBC RBC Hgb Hct MCV MCH MCHC RDW Std Deviation RDW Coeff of Arik Plt Count MPV Immature Gran % (Auto) Neut % (Auto) Lymph % (Auto) Mcmullen % (Auto) Eos % (Auto) Baso % (Auto) Absolute Neuts (auto) Absolute Lymphs (auto) Nucleated RBC % Diff Path Review Platelet Estimate Hypochromasia PT INR Sodium 137 Potassium 4.9 Chloride 103 Carbon Dioxide 26.0 Anion Gap 8 BUN 44 H Creatinine 1.44 H Estim Creat Clear Calc 29.66 Est GFR (MDRD) Af Amer 45 L Est GFR (MDRD) Non-Af 37 L BUN/Creatinine Ratio 30.6 H Glucose 190 H Calcium 9.2 Total Bilirubin 0.50 AST 17 ALT 20 Alkaline Phosphatase 88 Troponin I < 0.015 B-Natriuretic Peptide 1265.6 H Total Protein 7.4 Albumin 2.9 L Globulin 4.5 H Albumin/Globulin Ratio 0.6 L Lipase 42 L Urine Color Yellow Urine Clarity Clear Urine pH 6.5 Ur Specific [place] 1.010 Urine Protein 100 H Urine Glucose (UA) 100 H Urine Ketones Negative Urine Occult Blood 10 H Urine Nitrite Negative Urine Bilirubin Negative Urine Urobilinogen Normal Ur Leukocyte Esterase Negative Urine RBC 0 SEEN Urine WBC 0 SEEN Ur Squamous Epith Cells 0-5 SEEN Urine Bacteria RARE Urine Mucus 0 SEEN 09/05/20 09/05/20 11:00 11:40 WBC 11.4 H RBC 2.99 L Hgb 9.3 L Hct 28.2 L MCV 94.3 MCH 31.1 MCHC 33.0 RDW Std Deviation 41.1 RDW Coeff of Arik 12.0 Plt Count 400 MPV 9.6 Immature Gran % (Auto) 0.400 Neut % (Auto) 65.9 Lymph % (Auto) 12.0 L Mcmullen % (Auto) 14.0 H Eos % (Auto) 7.2 H Baso % (Auto) 0.5 Absolute Neuts (auto) 7.5 Absolute Lymphs (auto) 1.37 Nucleated RBC % 0 [address] Review May foll Platelet Estimate ADEQUATE Hypochromasia 1+ PT 13.5 INR 1.1 Sodium Potassium Chloride Carbon Dioxide Anion Gap BUN Creatinine Estim Creat Clear Calc Est GFR (MDRD) Af Amer Est GFR (MDRD) Non-Af BUN/Creatinine Ratio Glucose Calcium Total Bilirubin AST ALT Alkaline Phosphatase Troponin I B-Natriuretic Peptide Total Protein Albumin Globulin Albumin/Globulin Ratio Lipase Urine Color Urine Clarity Urine pH Ur Specific [place] Urine Protein Urine Glucose (UA) Urine Ketones Urine Occult Blood Urine Nitrite Urine Bilirubin Urine Urobilinogen Ur Leukocyte Esterase Urine RBC Urine WBC Ur Squamous Epith Cells Urine Bacteria Urine Mucus Radiography Diagnostic Testing: Radiology Impression Chest X-Ray 09/05/20 10:02 IMPRESSION: Stable, nonacute portable x-ray examination of the chest. Electronically Signed: Todd Shaw MD ([place]) at 11:40 EDT , Service support , Femur X-Ray 09/05/20 10:02 IMPRESSION: No demonstrated fracture or malalignment. Electronically Signed: Todd Shaw MD ([place]) at 11:41 EDT , Service support , Pelvis X-Ray 09/05/20 10:02 IMPRESSION: No pelvic ring fracture. Electronically Signed: Todd Shaw MD ([place]) at 11:41 EDT , Service support , Abdomen/Pelvis CT 09/05/20 11:32 IMPRESSION: 1. No hydronephrosis or urinary tract calcifications. 2. Right posterior lateral thigh stranding and hyperdense collection likely representing hematoma/soft tissue injury. 3. Right lower lobe mass previously biopsied. 4. 2.4 cm isodense (possible solid) lesion of the right mid kidney. Renal ultrasound recommended. 5. Moderate fecal retention. No colon wall thickening. Diverticulosis without evidence of diverticulitis. Electronically Signed: Todd Shaw MD ([place]) at 11:56 EDT , Service support , Discharge Plan Triage Chief Complaint: Lower Extremity Injury ED Provider: Quintin Ladd Dx/Rx/DC Orders Prescriptions: No Action Eliquis 5 mg tablet 5 mg PO BID RF: 0 losartan 100 mg tablet 100 mg PO DAILY RF: 0 metformin 1,000 mg tablet 1,000 mg PO BID RF: 0 Lantus Solostar U-100 Insulin 100 unit/mL (3 mL) insulin pen 12 unit subcut QHS RF: 0 atorvastatin 40 mg tablet 40 mg PO QHS RF: 0 [id number]-xswkslmc-zqmpll Tablet 1 tab PO DAILY RF: 0 omega-3 fatty acids [Fish Oil Concentrate] 1,000 mg capsule 1,000 mg PO DAILY RF: 0 oxybutynin 3.9 mg/24 hr patch semiweekly 1 patch transdermal .as needed RF: 0 acetaminophen 325 mg capsule 650 mg PO Q6H PRN (Reason: Pain) RF: 0 alum-mag hydroxide-simeth 400-400-40 mg/5 mL suspension 10 ml PO DAILY PRN (Reason: Diarrhea) RF: 0 sodium chloride [Saline Mist] 0.65 % aerosol,spray 2 spray intranasal Q2H PRN (Reason: nasal moisture) RF: 0 hydrocortisone [Cortizone-10] 1 % cream 1 applic topical TID PRN (Reason: Itching) RF: 0 loperamide-simethicone 2-125 mg tablet 1 tab PO DAILY PRN (Reason: Diarrhea) RF: 0 Mucinex 1,200 mg tablet extended release 12hr 1,200 mg PO Q12H PRN (Reason: Congestion) RF: 0 albuterol sulfate 90 mcg/actuation HFA aerosol inhaler 1 puff inhalation Q4H PRN (Reason: shortness of breath or wheezing) RF: 0 magnesium oxide 400 mg magnesium capsule 400 mg PO DAILY RF: 0 cholecalciferol (vitamin D3) 25 mcg (1,000 unit) capsule 25 mcg PO DAILY RF: 0 oxymetazoline [Vicks Sinex 12-Hour] 0.05 % spray,non-aerosol 2 spray intranasal Q12H PRN (Reason: nasal moisture) RF: 0 ferrous sulfate 325 mg (65 mg iron) capsule, extended release 325 mg PO DAILY RF: 0 fluticasone propion-salmeterol 232-14 mcg/actuation aero powdr breath act w/sensor 1 inh inhalation Q12H Qty: 1 RF: 3 standard wheelchair 1 ea OTHER DAILY Qty: 1 RF: 0 (DME) standard wheelchair See Rx Instructions .Route .MEDSUPPLY Qty: 1 RF: 0 (DME) blood pressure test kit-large Kit See Rx Instructions .ROUTE .MEDSUPPLY Qty: 1 RF: 0 verapamil 120 mg tablet 120 mg PO DAILY Qty: 30 RF: 0 citalopram 10 mg tablet 10 mg PO DAILY Qty: 30 RF: 0 furosemide 20 mg tablet 20 mg PO DIRECTED Qty: 90 RF: 3 Boostrix Tdap 2.5-8-5 Lf-mcg-Lf/0.5mL syringe 0.5 ml IM ONCE Qty: 1 RF: 0 pantoprazole 40 mg tablet,delayed release (DR/EC) 40 mg PO DAILY Qty: 30 RF: 3 albuterol sulfate 2.5 mg /3 mL (0.083 %) solution for nebulization 2.5 mg inhalation Q6H Qty: 180 RF: 3 spironolactone 25 mg tablet 25 mg PO DAILY Qty: 30 RF: 3 metoprolol tartrate 100 mg tablet 50 mg PO BID Qty: 60 RF: 3 Advair HFA 230-21 mcg/actuation HFA aerosol inhaler 2 puff inhalation BID Qty: 12 RF: 3 Primary Care Provider: Lizy Correa NP
[2020-09-05] MEDS: morphine 8 MG/ML Syringe IV ×2 (10:54→13:05)
[2020-09-05] MEDS: 0.9% Normal Saline 1,000 ML 1000 ML IV (10:55)
[2020-09-05] MEDS: Ondansetron 4 MG/2 ML Vial IV (10:55)
[2020-09-05 11:11] LABS: Mucous, Urine 0 SEEN /hpf (<or=2+); Red Blood Cells-Urine 0 SEEN /hpf (0-5); White Blood Cells 0 SEEN /hpf (0-5)
[2020-09-05 11:13] LABS: Absolute Lymphocyte Count 1.37 X10^3/uL (0.83-4.51); Absolute Neutrophil Count 7.5 X10^3/uL (2.0-7.7); Basophil# 0.06 X10^3/uL; Basophil% 0.5 % (0-1); Eosinophil# 0.82 X10^3/uL; Eosinophils% 7.2 % (0-5); Hematocrit 28.2 % (37-47); Hemoglobin 9.3 g/dL (12.0-15.0); Lymphocyte # 1.37 X10^3/ul (0.83-4.51); Mean Corpuscular Hgb 31.1 pg (27.0-32.0); Mean Corpuscular Volume 94.3 fL (81-99); Mean Platelet Vol. 9.6 fl (6.2-12.0); Monocyte# 1.59 X10^3/uL; NRBC Flagged by Analyzer 0 % (0-5); Neutrophil # 7.48 X10^3/uL (2.7-7.7); Neutrophil % 65.9 % (47-70); POSITIVE DIFFERENTIAL YES; Platelet Count 400 K/mm3 (150-450); RBC Distribution Width SD 41.1 fl (35.1-43.9); Red Blood Count 2.99 M/mm3 (4.2-5.4); White Blood Count 11.4 K/mm3 (4.4-11.0)
[2020-09-05 11:14] LABS: Differential Indicated SCAN CRITERIA MET
[2020-09-05 11:15] LABS: Color, Urine Yellow (Yellow); Glucose, Dipstick 100 mg/dl (Normal); Ketone-Dipstick Negative (Negative); Leukocyte Esterase-Dipstick Negative /ul (Negative); Nitrite-Dipstick Negative (Negative); Occult Blood-Urine 10 /ul (Negative); Protein-Dipstick 100 mg/dl (Negative); Urine Bilirubin Dipstick Negative (Negative); Urine Clarity Clear (Clear); Urine Urobilinogen Normal (Normal); Urine pH 6.5 (5.0 - 8.0)
[2020-09-05 11:22] LABS: Bacteria RARE /hpf (None Seen); Squamous Epithelial Cells - UA 0-5 SEEN /hpf (5-10)
[2020-09-05 11:29] LABS: ALB/GLOB Ratio 0.6 RATIO (0.9-2.4); AST(SGOT) 17 U/L (15-37); Alanine Aminotransfer ALT/SGPT 20 U/L (13-56); Albumin, Serum 2.9 g/dL (3.2-5.0); Alkaline Phosphatase 88 U/L (45-117); Anion Gap 8 (5-15); BUN 44 mg/dL (7-18); BUN/Creat Ratio 30.6 RATIO (10-20); Calcium,Total 9.2 mg/dL (8.5-10.1); Chloride 103 mmol/L (98-107); Creatinine, Serum 1.44 mg/dL (0.55-1.02); EST Glomerular Filtration Rate 37 mL/min (>60); Est Glom Filt Rate - Afr Amer 45 mL/min (>60); Estimated Creatinine Clearance 29.66 ml/min; Globulin 4.5 g/dL (2.2-4.2); Glucose 190 mg/dL (74-106); Lipase 42 U/L (73-393); Potassium 4.9 mmol/L (3.5-5.1); Protein, Total 7.4 g/dL (6.4-8.2); Sodium Level 137 mmol/L (136-145)
[2020-09-05 11:32] LABS: BNP,B-Type NATRIURETIC PEPTIDE 1265.6 pg/mL (0-100); Hypochromasia 1+; Platelet Estimate ADEQUATE (ADEQ)
--- NOTE | 2020-09-05 11:32 | CT_ITS ---
STUDY: CT ABDOMEN AND PELVIS WITHOUT CONTRAST REASON FOR EXAM: Female, 80 years old. Fall right flank pain, right thigh hematoma RADIATION DOSAGE (If Supplied By Facility): CTDIvol = ( 13.03 ) mGy, DLP = ( 560.56 ) mGycm TECHNIQUE: Transaxial images were obtained from the dome of the diaphragm to the symphysis pubis without oral contrast, and without intravenous contrast. Sagittal and coronal images were reconstructed. Individualized dose optimization techniques were used for this CT. COMPARISON: 08/04/2020, 08/24/2020 FINDINGS: Lobular mass of the right lower lobe was previously biopsied. The visualized portions of the heart are within normal limits. Normal liver. Normal gallbladder and extrahepatic biliary system. Normal spleen. Normal pancreas. Normal bilateral adrenal glands. No hydronephrosis or urinary tract calcifications. Hyperdense subcentimeter lesion of the right kidney is considered benign (proteinaceous cysts). There is a contour abnormality of the right mid kidney measuring 2.4 cm on image 34, isodense. Normal visualized stomach. No dilated loops of small bowel. There are multiple colonic diverticula consistent with diverticulosis. The appendix is not well seen. There is diffuse colonic fecal residue of the terminal ileum and proximal more than distal colon. There is diffuse atherosclerotic calcification of the abdominal aorta, without a demonstrated aneurysm. Normal inferior vena cava. Normal retroperitoneum. Normal urinary bladder. Normal abdominal wall. There are diffuse degenerative changes of the visualized lumbar spine. There is stranding in the proximal right thigh with a hyperdense collection partially visualized measuring up to 7.[address]/Abdomen/Pelvis without Cont IMPRESSION: 1. No hydronephrosis or urinary tract calcifications. 2. Right posterior lateral thigh stranding and hyperdense collection likely representing hematoma/soft tissue injury. 3. Right lower lobe mass previously biopsied. 4. 2.4 cm isodense (possible solid) lesion of the right mid kidney. Renal ultrasound recommended. 5. Moderate fecal retention. No colon wall thickening. Diverticulosis without evidence of diverticulitis. Electronically Signed: Todd Shaw MD ([place]) at 11:56 EDT , Service support ,
--- NOTE | 2020-09-05 11:54 | PCM.HP.STD ---
HPI - General General Date of Admission: 09/05/20 HPI Narrative PAPI RANDHAWA, is a 80 F with an extensive PMH as outlined who was admitted via the ED with a complaint of mechanical fall and swelling of her upper thigh. She is on eliquis for unclear reason. She fell a few days ago and landed on her right side.She noted that the area had been getting more swollen and painful. Hematoma tracks up to her hip. She denied any lightheadedness, dizziness, nausea or vomiting. Review of systems was otherwise negative. Vitals wre stable, and Hb is 9.3, which is around her baseline of ~ 10. CT of the abdomen adn pelvis showed right posterior lateral thigh stranding and hyperdense collection likely representing hematoma and soft tissue injury and showed a right lower lobe mass with 7 previously biopsied as well as a 2.4 cm isodense possibly solid lesion of the right mid kidney with renal ultrasound recommended. He has been admitted to be managed for hematoma right thigh due to mechanical fall as well as being on anticoagulation. FORMERLY [facility], [facility] Medical History (Updated 09/05/20 @ 12:[address] Meaghan Campa MD) Anxiety Asthma Cataracts, bilateral Congestive heart failure (CHF) Diabetes Heart failure with reduced left ventricular function History of tobacco abuse Hyperlipidemia Hypertension Muscle weakness (generalized) Paroxysmal atrial fibrillation Recurrent falls Seasonal allergic reaction Type 2 diabetes mellitus Type II diabetes mellitus Type II diabetes mellitus with manifestations Visual impairment Home Medications acetaminophen 325 mg capsule 650 mg PO Q6H PRN cap 08/09/20 [History Last Taken Unknown] albuterol sulfate 90 mcg/actuation aerosol inhaler 1 puff INHALATION Q4H PRN g 08/09/20 [History Last Taken Unknown] aluminum-mag hydroxide-simethicone 400 mg-400 mg-40 mg/5 mL oral susp 10 ml PO DAILY PRN ml 08/09/20 [History Last Taken Unknown] apixaban 5 mg tablet 5 mg PO BID 08/09/20 [History Last Taken 08/18/20] atorvastatin 40 mg tablet 40 mg PO QHS 08/09/20 [History Last Taken Unknown] cholecalciferol (vitamin D3) 25 mcg (1,000 unit) capsule 25 mcg PO DAILY 08/09/20 [History Last Taken Unknown] ferrous sulfate 325 mg (65 mg iron) capsule,extended release 325 mg PO DAILY cap 08/09/20 [History Last Taken Unknown] fluticasone 232mcg-salmeterol 14mcg/actuation breath act,powder sensor 1 inh INHALATION Q12H #1 ea 08/09/20 [Rx Last Taken Unknown] guaifenesin 1,200 mg tablet, extended release 12 hr 1,200 mg PO Q12H PRN 08/09/20 [History Last Taken Unknown] hydrocortisone 1 % topical cream 1 applic TOPICAL TID PRN 08/09/20 [History Last Taken Unknown] insulin glargine 100 unit/mL (3 mL) subcutaneous pen 12 unit SUBCUT QHS ml 08/09/20 [History Last Taken Unknown] loperamide-simethicone 2 mg-125 mg tablet 1 tab PO DAILY PRN tab 08/09/20 [History Last Taken Unknown] losartan 100 mg tablet 100 mg PO DAILY 08/09/20 [History Last Taken Unknown] magnesium oxide 400 mg PO DAILY 08/09/20 [History Last Taken Unknown] metformin 1,000 mg tablet 1,000 mg PO BID 08/09/20 [History Last Taken Unknown] vzgdlqmewruj-dmcenzht-dpqche tablet 1 tab PO DAILY 08/09/20 [History Last Taken Unknown] omega-3 fatty acids 1,000 mg capsule 1,000 mg PO DAILY 08/09/20 [History Last Taken Unknown] oxybutynin 3.9 mg/24 hr semiweekly transdermal patch 1 patch TRANSDERMAL .as needed ea 08/09/20 [History Last Taken Unknown] oxymetazoline 0.05 % nasal spray 2 spray INTRANASAL Q12H PRN 08/09/20 [History Last Taken Unknown] sodium chloride 0.65 % nasal spray aerosol 2 spray INTRANASAL Q2H PRN 08/09/20 [History Last Taken Unknown] standard wheelchair #1 ea 08/11/20 [Rx Last Taken Unknown] standard wheelchair 1 ea OTHER DAILY #1 device 08/11/20 [Rx Last Taken Unknown] blood pressure test kit-large #1 ea 08/16/20 [Rx Last Taken Unknown] furosemide 20 mg tablet 20 mg PO DIRECTED #90 tab 08/16/20 [Rx Last Taken Unknown] verapamil 120 mg tablet 120 mg PO DAILY #30 tab 08/16/20 [Rx Last Taken Unknown] citalopram 10 mg tablet 10 mg PO DAILY #30 tab 08/17/20 [Rx Last Taken Unknown] Boostrix Tdap 2.5 Lf unit-8 mcg-5 Lf/0.5 mL intramuscular syringe 0.5 ml IM ONCE #1 ml NS 08/24/20 [Clinic Last Taken Unknown] albuterol sulfate 2.5 mg INHALATION Q6H #180 ml 08/24/20 [Rx Last Taken Unknown] pantoprazole 40 mg tablet,delayed release 40 mg PO DAILY #30 tab 08/24/20 [Rx Last Taken Unknown] metoprolol tartrate 100 mg tablet 50 mg PO BID #60 tab 08/25/20 [Rx Last Taken Unknown] spironolactone 25 mg tablet 25 mg PO DAILY #30 tab 08/25/20 [Rx Last Taken Unknown] fluticasone propionate 230 mcg-salmeterol 21 mcg/actuation HFA inhaler 2 puff INHALATION BID #12 g 08/28/20 [Rx Last Taken Unknown] Allergy/AdvReac Type Severity Reaction Status Date / Time Penicillins Allergy PT UNSURE Verified 09/05/20 09:38 OF REACTION Family History Mother Diabetes Heart disease Brother Cancer Surgical History History of Social History household members: none housing: apartment number of children: 3 current occupational status: retired current occupational exposures/hazards: No pets and animals: No history of recent travel: Yes (From [place]) details: Moved to [facility] to be closer to family out of state: Yes out of country: No Smoking Status: Former smoker quit date: 07/24/76 pack-years: 4 Tobacco: How many years used: 7 alcohol intake: current details: 1 glass wine 4 times a year. Social drinker. substance use type: does not use what type of physical activity do you participate in: none ROS Constitutional Constitutional: Denies anorexia, change in weight, fever(s), malaise or weakness Eyes Eyes: Denies double vision, erythema or loss of vision ENT HEENT: Reports post nasal drip; Denies dysphagia, headache(s) or nasal congestion Cardiovascular Cardiovascular: Denies chest pain, dyspnea on exertion, edema, lightheadedness or orthopnea Gastrointestinal Gastrointestinal: Denies abdominal pain Genitourinary Genitourinary: Denies burning urination, dysuria or hematuria Musculoskeletal Musculoskeletal: Reports joint swelling; Denies arthralgias, back pain, joint pain or joint stiffness Neurologic Neurologic: Denies confusion, dizziness or focal weakness Psychiatric Psychiatric: Denies anxiety or depression Endocrine Endocrinology: Denies change in body appearance Vital Signs Vital Signs Vital Signs: 09/05/20 09:35 Temperature 98.7 F Temperature Source Temporal Pulse Rate 71 Respiratory Rate 16 Blood Pressure 162/116 H Blood Pressure Mean 131 Pulse Ox 95 Oxygen Delivery Method Room Air Weight Weight: 170 lb Body Mass Index (BMI) 27.4 Physical Exam Const alert and oriented x3 General Appearance: cooperative HEENT normocephalic, head/scalp atraumatic, hearing grossly normal bilaterally and moist oral mucous membranes Eyes PERRL, EOMs intact bilaterally and conjunctivae normal Neck no lymphadenopathy and supple Resp normal respiratory effort, no retractions and no use of accessory muscles Cardio regular rate, regular rhythm, S1 normal heart sound, S2 normal heart sound and no murmurs GI normal to inspection, nondistended, normoactive bowel sounds, soft to palpation, non-tender and non-distended Extremity normal to inspection Extremity Narrative: has firm hematoma on the over the right hip, tender to touch, ~ 10 x10cm, with bruising over right lateral thigh Neuro oriented x3 Sensorium / Orientation: awake and alert Psych affect normal Mood & Affect: depressed Results Lab / Micro Data Result Diagrams: 09/05/20 11:00 09/05/20 11:00 Labs: Laboratory Results - last 24 hr 09/05/20 09/05/20 09/05/20 11:00 11:00 11:00 WBC RBC Hgb Hct MCV MCH MCHC RDW Std Deviation RDW Coeff of Arik Plt Count MPV Immature Gran % (Auto) Neut % (Auto) Lymph % (Auto) [place] % (Auto) Eos % (Auto) Baso % (Auto) Absolute Neuts (auto) Absolute Lymphs (auto) Nucleated RBC % Diff Path Review Platelet Estimate Hypochromasia Sodium 137 Potassium 4.9 Chloride 103 Carbon Dioxide 26.0 Anion Gap 8 BUN 44 H Creatinine 1.44 H Estim Creat Clear Calc 29.66 Est GFR (MDRD) Af Amer 45 L Est GFR (MDRD) Non-Af 37 L BUN/Creatinine Ratio 30.6 H Glucose 190 H Calcium 9.2 Total Bilirubin 0.50 AST 17 ALT 20 Alkaline Phosphatase 88 Troponin I < 0.015 B-Natriuretic Peptide 1265.6 H Total Protein 7.4 Albumin 2.9 L Globulin 4.5 H Albumin/Globulin Ratio 0.6 L Lipase 42 L Urine Color Yellow Urine Clarity Clear Urine pH 6.5 Ur Specific [place] 1.010 Urine Protein 100 H Urine Glucose (UA) 100 H Urine Ketones Negative Urine Occult Blood 10 H Urine Nitrite Negative Urine Bilirubin Negative Urine Urobilinogen Normal Ur Leukocyte Esterase Negative Urine RBC 0 SEEN Urine WBC 0 SEEN Ur Squamous Epith Cells 0-5 SEEN Urine Bacteria RARE Urine Mucus 0 SEEN 09/05/20 11:00 WBC 11.4 H RBC 2.99 L Hgb 9.3 L Hct 28.2 L MCV 94.3 MCH 31.1 MCHC 33.0 RDW Std Deviation 41.1 RDW Coeff of Arik 12.0 Plt Count 400 MPV 9.6 Immature Gran % (Auto) 0.400 Neut % (Auto) 65.9 Lymph % (Auto) 12.0 L [place] % (Auto) 14.0 H Eos % (Auto) 7.2 H Baso % (Auto) 0.5 Absolute Neuts (auto) 7.5 Absolute Lymphs (auto) 1.37 Nucleated RBC % 0 Diff Path Review May foll Platelet Estimate ADEQUATE Hypochromasia 1+ Sodium Potassium Chloride Carbon Dioxide Anion Gap BUN Creatinine Estim Creat Clear Calc Est GFR (MDRD) Af Amer Est GFR (MDRD) Non-Af BUN/Creatinine Ratio Glucose Calcium Total Bilirubin AST ALT Alkaline Phosphatase Troponin I B-Natriuretic Peptide Total Protein Albumin Globulin Albumin/Globulin Ratio Lipase Urine Color Urine Clarity Urine pH Ur Specific [place] Urine Protein Urine Glucose (UA) Urine Ketones Urine Occult Blood Urine Nitrite Urine Bilirubin Urine Urobilinogen Ur Leukocyte Esterase Urine RBC Urine WBC Ur Squamous Epith Cells Urine Bacteria Urine Mucus Radiology Impression Chest X-Ray 09/05/20 10:02 IMPRESSION: Stable, nonacute portable x-ray examination of the chest. Electronically Signed: Todd Shaw MD ([place]) at 11:40 EDT , Service support , Femur X-Ray 09/05/20 10:02 IMPRESSION: No demonstrated fracture or malalignment. Electronically Signed: Todd Shaw MD ([place]) at 11:41 EDT , Service support , Pelvis X-Ray 09/05/20 10:02 IMPRESSION: No pelvic ring fracture. Electronically Signed: Todd Shaw MD ([place]) at 11:41 EDT , Service support , Assessment & Plan Assessment/Plan (1) Hematoma: PLAN: #RLE thigh hematoma due to mechanical fall and anticoagulation Admit to [facility] Hemoglobin is stable at around 9.3. Will trend hemoglobin. Hold Eliquis. Apply compression dressing and monitor. CT of the abdomen and pelvis showed a right posterior lateral thigh stranding a hypodense collection likely representing hematoma and soft tissue injury. Pelvic x-ray was negative for any evidence of fracture. Consult PT OT. Fall precautions. consider surgical evaluation if swelling gets worse. #Right lung cancer Recently diagnosed via biopsy. Due to have a PET scan today. This will need to be rescheduled on account of her currently being in hospital. #Type 2 diabetes mellitus: On Lantus 12 units nightly. Insulin sliding scale. Checks AC at bedtime. Hold Metformin. #Asthma: Continue breathing treatments with bronchodilators. #Hypertension: On losartan and metoprolol DVT prophylaxis: SCDs. No anticoagulation account of hematoma. CODE STATUS: Full code Patient counseled about differences between full code, DNR CCA and DNR CCA. Patient elects to be full code. total face to face time 17 mins Charges/Coding Visit Charges Inpatient E&M: 54973 Init Hosp L3 Procedures Hospitalists Procedures: 73248 Advncd Care Plan 30 Min
[2020-09-05 11:55] LABS: International Normalized Ratio 1.1; Prothrombin Time (Protime)PT. 13.5 SECONDS (11.7-14.9)
--- NOTE | 2020-09-05 11:59 | NURSING ---
DR CONCEPCION FOR DR CASTILLO
[2020-09-05 12:22] LABS: CPK Total, Creatine Kinase 63 U/L (26-192)
--- NOTE | 2020-09-05 12:59 | NURSING ---
311 KORAM RT THIGH HEMATOMA, INTRACTABLE PAIN, LUNG CANCER
--- NOTE | 2020-09-05 13:01 | ED.RN ---
pt remains very painful. per dr another dose of morphine to be given in ed
[2020-09-05] MEDS: 0.9% Normal Saline 1,000 ML 150 ML IV ×3 (13:07→21:48)
[2020-09-05 16:16] LABS: Absolute Lymphocyte Count 1.46 X10^3/uL (0.83-4.51); Absolute Neutrophil Count 6.9 X10^3/uL (2.0-7.7); Basophil# 0.03 X10^3/uL; Basophil% 0.3 % (0-1); Eosinophils% 6.7 % (0-5); Hematocrit 26.5 % (37-47); Hemoglobin 8.8 g/dL (12.0-15.0); Lymphocyte # 1.46 X10^3/ul (0.83-4.51); Mean Corp Hgb Conc 33.2 g/dL (32-36); Mean Corpuscular Hgb 31.4 pg (27.0-32.0); Mean Corpuscular Volume 94.6 fL (81-99); Mean Platelet Vol. 9.2 fl (6.2-12.0); Monocyte# 1.35 X10^3/uL; Monocyte% 12.9 % (0-10); NRBC Flagged by Analyzer 0 % (0-5); Neutrophil # 6.85 X10^3/uL (2.7-7.7); Neutrophil % 65.4 % (47-70); Platelet Count 378 K/mm3 (150-450); RBC Distribution Width SD 41.2 fl (35.1-43.9); White Blood Count 10.5 K/mm3 (4.4-11.0)
[2020-09-05] MEDS: Insulin Lispro 100 UNIT/ML INSULN.PEN SC ×2 (17:42→21:48)
[2020-09-05] MEDS: Furosemide 20 MG Tablet PO (17:45)
[2020-09-05 18:00] LABS: Bedside Glucose 227 mg/dL (70-110)
[2020-09-05] MEDS: Albuterol 2.5 MG/3 ML VIAL.NEB. INHALATION (19:38)
[2020-09-05] MEDS: Budesonide Respules 0.5 MG/2 ML AMPUL.NEB. INHALATION (19:38)
[2020-09-05] MEDS: Metoprolol Tartrate 50 MG Tablet PO (21:51)
[2020-09-05] MEDS: Atorvastatin Calcium 40 MG Tablet PO (21:51)
[2020-09-05] MEDS: Acetaminophen 325 MG Tablet 650 MG PO (21:55)
[2020-09-05 22:00] LABS: Bedside Glucose 284 mg/dL (70-110)
[2020-09-06] VITALS (15 sets, daily range): BP systolic 135–180; BP diastolic 51–100; PULSE 56–84; RESP 18–22; TEMP 36.6–36.9; O2SAT 92–100; BMI 27.1
[2020-09-06] MEDS: 0.9% Normal Saline 1,000 ML 150 ML IV (04:05)
[2020-09-06] MEDS: Acetaminophen 325 MG Tablet 650 MG PO ×3 (04:13→21:07)
[2020-09-06 05:39] LABS: Absolute Lymphocyte Count 1.44 X10^3/uL (0.83-4.51); Absolute Neutrophil Count 5.7 X10^3/uL (2.0-7.7); Basophil# 0.05 X10^3/uL; Basophil% 0.5 % (0-1); Eosinophil# 0.72 X10^3/uL; Eosinophils% 7.7 % (0-5); Hematocrit 22.9 % (37-47); Hemoglobin 7.5 g/dL (12.0-15.0); Lymphocyte # 1.44 X10^3/ul (0.83-4.51); Lymphocyte % 15.3 % (19-41); Mean Corp Hgb Conc 32.8 g/dL (32-36); Mean Corpuscular Hgb 31.1 pg (27.0-32.0); Mean Platelet Vol. 9.2 fl (6.2-12.0); Monocyte# 1.45 X10^3/uL; Monocyte% 15.4 % (0-10); NRBC Flagged by Analyzer 0 % (0-5); Neutrophil % 60.6 % (47-70); Platelet Count 332 K/mm3 (150-450); RBC Distribution Width CV 12.2 % (11.6-14.6); RBC Distribution Width SD 42.2 fl (35.1-43.9); Red Blood Count 2.41 M/mm3 (4.2-5.4); White Blood Count 9.4 K/mm3 (4.4-11.0)
[2020-09-06 06:01] LABS: Anion Gap 3 (5-15); BUN 30 mg/dL (7-18); BUN/Creat Ratio 28.3 RATIO (10-20); Calcium,Total 8.1 mg/dL (8.5-10.1); Chloride 109 mmol/L (98-107); Creatinine, Serum 1.06 mg/dL (0.55-1.02); EST Glomerular Filtration Rate 53 mL/min (>60); Est Glom Filt Rate - Afr Amer 64 mL/min (>60); Estimated Creatinine Clearance 40.29 ml/min; Glucose 119 mg/dL (74-106); Potassium 4.7 mmol/L (3.5-5.1); Sodium Level 140 mmol/L (136-145)
[2020-09-06 06:35] LABS: Bedside Glucose 126 mg/dL (70-110)
[2020-09-06] MEDS: Albuterol 2.5 MG/3 ML VIAL.NEB. INHALATION ×3 (07:00→20:48)
[2020-09-06] MEDS: Budesonide Respules 0.5 MG/2 ML AMPUL.NEB. INHALATION ×2 (07:00→20:48)
--- NOTE | 2020-09-06 07:25 | PN.HOSP_ITS ---
Subjective Subjective eart rhythm has been normal since that he also recalls that she was diagnosed with heart failure and was told that her heart was. Patient seen and examined. She still has pain on left hip. Hematoma has gotten bigger. Hb has dropped to 7.5 this morning. She has otherwise remained hemodynamically stable. Son tells [facility] today that she was on eliquis because he thinks he was diagnosed with A. fib in [place] in June 2020, and she was also told she had heart failure, with her heart functioning at 35-40%. Objective Data Objective Data Vital Signs: Vital Signs Temp Pulse Resp BP Pulse Ox 98 F 75 22 H 180/78 H 99 09/06/20 02:15 09/06/20 03:59 09/06/20 02:15 09/06/20 02:15 09/06/20 02:15 Oxygen Flow Rate (L/min) 2 Oxygen Delivery Method Nasal Cannula Weight: 168 lb 6.931 oz Body Mass Index (BMI) 27.1 Intake & Output: Intake and Output for Last 24 Hours 09/04/20 09/05/20 09/06/20 23:59 23:59 23:59 Intake Total 3350 / 3600 1242.5 / 1242.5 Balance 3350 / 3600 1242.5 / 1242.5 Lab / Micro Data Result Diagrams: 09/06/20 05:30 09/06/20 05:30 Labs: Laboratory Results - last 24 hr 09/05/20 09/05/20 09/05/20 11:00 11:00 11:00 WBC RBC Hgb Hct MCV MCH MCHC RDW Std Deviation RDW Coeff of Arik Plt Count MPV Immature Gran % (Auto) Neut % (Auto) Lymph % (Auto) [place] % (Auto) Eos % (Auto) Baso % (Auto) Absolute Neuts (auto) Absolute Lymphs (auto) Nucleated RBC % Diff Path Review Platelet Estimate Hypochromasia PT INR Sodium 137 Potassium 4.9 Chloride 103 Carbon Dioxide 26.0 Anion Gap 8 BUN 44 H Creatinine 1.44 H Estim Creat Clear Calc 29.66 Est GFR (MDRD) Af Amer 45 L Est GFR (MDRD) Non-Af 37 L BUN/Creatinine Ratio 30.6 H Glucose 190 H Calcium 9.2 Total Bilirubin 0.50 AST 17 ALT 20 Alkaline Phosphatase 88 Total Creatine Kinase Troponin I < 0.015 B-Natriuretic Peptide 1265.6 H Total Protein 7.4 Albumin 2.9 L Globulin 4.5 H Albumin/Globulin Ratio 0.6 L Lipase 42 L Urine Color Yellow Urine Clarity Clear Urine pH 6.5 Ur Specific [place] 1.010 Urine Protein 100 H Urine Glucose (UA) 100 H Urine Ketones Negative Urine Occult Blood 10 H Urine Nitrite Negative Urine Bilirubin Negative Urine Urobilinogen Normal Ur Leukocyte Esterase Negative Urine RBC 0 SEEN Urine WBC 0 SEEN Ur Squamous Epith Cells 0-5 SEEN Urine Bacteria RARE Urine Mucus 0 SEEN POC Glucose 09/05/20 09/05/20 09/05/20 11:00 11:00 11:40 WBC 11.4 H RBC 2.99 L Hgb 9.3 L Hct 28.2 L MCV 94.3 MCH 31.1 MCHC 33.0 RDW Std Deviation 41.1 RDW Coeff of Arik 12.0 Plt Count 400 MPV 9.6 Immature Gran % (Auto) 0.400 Neut % (Auto) 65.9 Lymph % (Auto) 12.0 L [place] % (Auto) 14.0 H Eos % (Auto) 7.2 H Baso % (Auto) 0.5 Absolute Neuts (auto) 7.5 Absolute Lymphs (auto) 1.37 Nucleated RBC % 0 Diff Path Review May foll Platelet Estimate ADEQUATE Hypochromasia 1+ PT 13.5 INR 1.1 Sodium Potassium Chloride Carbon Dioxide Anion Gap BUN Creatinine Estim Creat Clear Calc Est GFR (MDRD) Af Amer Est GFR (MDRD) Non-Af BUN/Creatinine Ratio Glucose Calcium Total Bilirubin AST ALT Alkaline Phosphatase Total Creatine Kinase 63 Troponin I B-Natriuretic Peptide Total Protein Albumin Globulin Albumin/Globulin Ratio Lipase Urine Color Urine Clarity Urine pH Ur Specific [place] Urine Protein Urine Glucose (UA) Urine Ketones Urine Occult Blood Urine Nitrite Urine Bilirubin Urine Urobilinogen Ur Leukocyte Esterase Urine RBC Urine WBC Ur Squamous Epith Cells Urine Bacteria Urine Mucus POC Glucose 09/05/20 09/05/20 09/05/20 16:07 17:39 21:45 WBC 10.5 RBC 2.80 L Hgb 8.8 L Hct 26.5 L MCV 94.6 MCH 31.4 MCHC 33.2 RDW Std Deviation 41.2 RDW Coeff of Arik 12.0 Plt Count 378 MPV 9.2 Immature Gran % (Auto) 0.700 Neut % (Auto) 65.4 Lymph % (Auto) 14.0 L [place] % (Auto) 12.9 H Eos % (Auto) 6.7 H Baso % (Auto) 0.3 Absolute Neuts (auto) 6.9 Absolute Lymphs (auto) 1.46 Nucleated RBC % 0 Diff Path Review Platelet Estimate Hypochromasia PT INR Sodium Potassium Chloride Carbon Dioxide Anion Gap BUN Creatinine Estim Creat Clear Calc Est GFR (MDRD) Af Amer Est GFR (MDRD) Non-Af BUN/Creatinine Ratio Glucose Calcium Total Bilirubin AST ALT Alkaline Phosphatase Total Creatine Kinase Troponin I B-Natriuretic Peptide Total Protein Albumin Globulin Albumin/Globulin Ratio Lipase Urine Color Urine Clarity Urine pH Ur Specific [place] Urine Protein Urine Glucose (UA) Urine Ketones Urine Occult Blood Urine Nitrite Urine Bilirubin Urine Urobilinogen Ur Leukocyte Esterase Urine RBC Urine WBC Ur Squamous Epith Cells Urine Bacteria Urine Mucus POC Glucose 227 H 284 H 09/06/20 09/06/20 09/06/20 05:30 05:30 06:33 WBC 9.4 RBC 2.41 L Hgb 7.5 L Hct 22.9 L MCV 95.0 MCH 31.1 MCHC 32.8 RDW Std Deviation 42.2 RDW Coeff of Arik 12.2 Plt Count 332 MPV 9.2 Immature Gran % (Auto) 0.500 Neut % (Auto) 60.6 Lymph % (Auto) 15.3 L [place] % (Auto) 15.4 H Eos % (Auto) 7.7 H Baso % (Auto) 0.5 Absolute Neuts (auto) 5.7 Absolute Lymphs (auto) 1.44 Nucleated RBC % 0 Diff Path Review Platelet Estimate Hypochromasia PT INR Sodium 140 Potassium 4.7 Chloride 109 H Carbon Dioxide 28.0 Anion Gap 3 L BUN 30 H Creatinine 1.06 H Estim Creat Clear Calc 40.29 Est GFR (MDRD) Af Amer 64 Est GFR (MDRD) Non-Af 53 L BUN/Creatinine Ratio 28.3 H Glucose 119 H Calcium 8.1 L Total Bilirubin AST ALT Alkaline Phosphatase Total Creatine Kinase Troponin I B-Natriuretic Peptide Total Protein Albumin Globulin Albumin/Globulin Ratio Lipase Urine Color Urine Clarity Urine pH Ur Specific [place] Urine Protein Urine Glucose (UA) Urine Ketones Urine Occult Blood Urine Nitrite Urine Bilirubin Urine Urobilinogen Ur Leukocyte Esterase Urine RBC Urine WBC Ur Squamous Epith Cells Urine Bacteria Urine Mucus POC Glucose 126 H Micro: Microbiology 09/05/20 11:00 Mucosa - Nose SARS-CoV-2 Antigen (Rapid) - Final Radiography Diagnostic Testing: Radiology Impression Chest X-Ray 09/05/20 10:02 IMPRESSION: Stable, nonacute portable x-ray examination of the chest. Electronically Signed: Todd Shaw MD ([place]) at 11:40 EDT , Service support , Femur X-Ray 09/05/20 10:02 IMPRESSION: No demonstrated fracture or malalignment. Electronically Signed: Todd Shaw MD ([place]) at 11:41 EDT , Service support , Pelvis X-Ray 09/05/20 10:02 IMPRESSION: No pelvic ring fracture. Electronically Signed: Todd Shaw MD ([place]) at 11:41 EDT , Service support , Abdomen/Pelvis CT 09/05/20 11:32 IMPRESSION: 1. No hydronephrosis or urinary tract calcifications. 2. Right posterior lateral thigh stranding and hyperdense collection likely representing hematoma/soft tissue injury. 3. Right lower lobe mass previously biopsied. 4. 2.4 cm isodense (possible solid) lesion of the right mid kidney. Renal ultrasound recommended. 5. Moderate fecal retention. No colon wall thickening. Diverticulosis without evidence of diverticulitis. Electronically Signed: Todd Shaw MD ([place]) at 11:56 EDT , Service support , Physical Exam Const alert and oriented x3 General Appearance: cooperative HEENT normocephalic, head/scalp atraumatic, hearing grossly normal bilaterally and moist oral mucous membranes Eyes PERRL, EOMs intact bilaterally and conjunctivae normal Neck no lymphadenopathy and supple Resp normal respiratory effort, no retractions and no use of accessory muscles Cardio regular rate, regular rhythm, S1 normal heart sound, S2 normal heart sound and no murmurs GI normal to inspection, nondistended, normoactive bowel sounds, soft to palpation, non-tender and non-distended Extremity normal to inspection Extremity Narrative: has firm hematoma on the over the right hip, tender to touch, ~ 10 x10cm, with bruising over right lateral thigh. Hematoma is enlarging. Skin Skin Narrative: bruising over right hip due t mechanical fall. Neuro oriented x3 Sensorium / Orientation: awake and alert Psych affect normal Mood & Affect: depressed Assessment & Plan Assessment/Plan (1) Hematoma: PLAN: #RLE thigh hematoma due to mechanical fall and anticoagulation * Hb has dropped to 7.5 today. * eliquis on hold * consult plastic surgery as hematoma is getting bigger, and she may need an I&D to evacuate the hematoma * PT.OT on board. * fall precautions * transfuse if Hb <7 * #Right lung cancer * Recently diagnosed via biopsy. * couldnt have PET scan yesterday due to her being in the hospital. * will need to reschedule PET scan * Due to have a PET scan today. This will need to be rescheduled on account of her currently being in hospital. * From PCPs note, it appears as if patient and son did not want any further work-up and had been referred to palliative care. However, patient had had a PET scan scheduled on outpatient basis for yesterday and son is quite upset that she could not have that done yesterday, as it is prolonging the time it will take to get a treatment plan. * I spoke to her PCP who clarified that son had said they are still not very ga re about treatment, but would want to have the PET scan to see the spread and activity of the cancer, and decide from there. * #Type 2 diabetes mellitus: * On Lantus 12 units nightly. * Insulin sliding scale. * Checks AC at bedtime. * Hold Metformin. * #?Afib * son says patient was diagnosed with afib in June 2020 in [place], and was started on eliquis * it appears she has been in sinus rhythm since then. * eliquis now on hold * 2D echo done 09/01/2020 showed EF of 40% with moderate left global hypokinesis and moderate concentric left ventricular hypertrophy with left atrium moderately enlarged and 3+ diastolic dysfunction. * #Combined diastolic and systolic heart failure * Not in exacerbation right now. * 2D echo as above. * on PO lasix and spironolactone * #Chronic hypoxic respiratory failure due to heart failure * Patient chronically on 2 L of oxygen. Titrate oxygen to maintain saturation above 90%. * Now on 2 L of oxygen. * #Asthma: Continue breathing treatments with bronchodilators. #Hypertension: On losartan and metoprolol DVT prophylaxis: SCDs. No anticoagulation account of hematoma. CODE STATUS: Full code Charges/Coding Visit Charges Inpatient E&M: 55276 Subs Hosp L3
--- NOTE | 2020-09-06 10:25 | NURSING ---
Son William at bedside. voices anger/frustration and then states is remorseful and applogetic over what happened yesterday and her not getting to have her PET scan done. active listening done. Pt son staets he would prefer said nurse to call and reschedule pt PET scan, family has no preferences of timing. said nurse phoned [phone] who then transfered nurse to PET scanning certified pest control technician. Per certified pest control technician pt must be out of hospital for at least 48 hours before able to do PET Scan and cannot schedule this at all while pt is in the hospital. States pt son will have to call following number once pt is discharged to make PET scan appointment. PET certified pest control technician states only in [place] once a week and the next available date would be September 19, however will not be able to schedule that for pt until she is discharged from [facility]. Said nurse relayed above information to pt son.
--- NOTE | 2020-09-06 10:35 | CASEMGMT ---
RN CM Face to Face with patient for initial transition planning/care coordination assessment. RN CM introduced self and role at [facility]. Patient sitting in chair, alert and oriented, son at bedside. Patient willing to participate in assessment and is able to answer all questions appropriately. Care providers, pharmacy, and demographics verified. Patient wishes to discharge home, and is interested in HHC at discharge. Patient states she has no further needs or concerns at this time. CM to follow for discharge planning needs that may arise. PCP: Ladonna Specialists: Grabiel crystal gazer; Armond, regional office coordinator Preferred Pharmacy: [facility] Insurance: [employer] Prescription Benefit: yes Living Will/HPOA: yes, William Palma LNOK: son Living Arrangements: Patient lives with son in a 2 story home, patient's room in on second floor. Patient states she is independent and able to ambulate stairs. Transportation: son DME/HHC: Patient states she has raised toilet, cane, walker, oxygen 2lpm with portability through [employer], and nebulizer. No previous HHC or SNF. CM to provide patient with HHC list. Disposition Plan: Patient to discharge home with family support and follow-up plans in place. Aleida WATERS, RN, CM
[2020-09-06] MEDS: Furosemide 40 MG Tablet PO (10:41)
[2020-09-06] MEDS: Citalopram 10 MG Tablet PO (10:41)
[2020-09-06] MEDS: Spironolactone 25 MG Tablet PO (10:41)
[2020-09-06] MEDS: Pantoprazole Sodium 40 MG Tablet PO (10:41)
[2020-09-06] MEDS: Metoprolol Tartrate 50 MG Tablet PO ×2 (10:41→21:08)
[2020-09-06] MEDS: Ferrous Sulfate 325 MG Tablet PO (10:42)
[2020-09-06] MEDS: Verapamil 120 MG Tablet PO (10:42)
[2020-09-06] MEDS: Magnesium Chloride 64 MG Delay Rel.Tablet 128 MG PO (10:42)
[2020-09-06] MEDS: Cholecalciferol (VIT D3) 25 MCG TABLET (1,000 UNITS) PO (10:42)
[2020-09-06] MEDS: Losartan Potassium 100 MG Tablet PO (10:42)
[2020-09-06 12:11] LABS: Bedside Glucose 137 mg/dL (70-110)
[2020-09-06 12:13] LABS: Pathologist Review Reviewed
--- NOTE | 2020-09-06 12:15 | CASEMGMT ---
LUIS MCCOY in to discuss MATHEWS with patient. LUIS MCCOY explained MATHEWS Form to patient, patient voiced understanding. Patient signed MATHEWS form and filed in chart. Patient provided with copy of signed MATHEWS form. Patient had no further questions or concerns at this time.
[2020-09-06] MEDS: oxyCODONE 5 MG Tablet PO (14:00)
--- NOTE | 2020-09-06 14:38 | CASEMGMT ---
Patient was provided a list of [facility] providers including quality and resource use data and consistent with the patient?s preferred geographic region, medical needs, and insurance network. Patient to review list with family and provide preferences. CM will continue to follow this patient and plan for a safe discharge.
--- NOTE | 2020-09-06 15:42 | CON.PCM_ITS ---
Assessment & Plan Assessment/Plan (1) Traumatic hematoma of right thigh: (2) Acute postoperative anemia due to expected blood loss: (3) Type 2 diabetes mellitus: (4) Fall as cause of accidental injury at home as place of occurrence: (5) Current use of terminal clerk anticoagulation: PLAN: Patient has a traumatic hematoma right lateral thigh that is large. There is no overlying skin necrosis. She also has a drop in Hgb to 7.5. Recommend surgical preparation right lateral thigh with incision and drainage and excisional debridement and evacuation traumatic hematoma. There is concern about continued oozing. Will order PRBC perioperatively. Will also check a Hgb postoperatively and transfuse as necessary. With its large size, there is also concern that it will become infected if not surgically evacuated. Surgery will be done tomorrow under local anesthesia and IV sedation. The wound will be left open. Postoperatively a VAC will be placed. Tissue that is removed will be sent to Pathology for analysis and to Microbiology for culture. A positive culture will necessitate antibiotic therapy. At discharge she may need short term placement until she is more steady on her feet with ambulation. When discharged, [facility]. If there is a plateau in the healing process, can proceed with delayed closure with skin grafting. Anticipate increased metabolic demands from the hematoma and subsequent evacuation. Encourage nutritional supplementation with protein to help the healing process. Patient was informed of the risks and complications of the procedure including alternatives to surgery. These were discussed with the patient personally. Patient voices understanding and wishes to proceed. We discussed the current risks associated with COVID-19. While it is understood that there is a community spread of COVID-19, the risk of estrellita COVID-19 while at [facility] ([facility]) is very low; however, the risk cannot be completely mitigated because of the community spread of the disease. We discussed in detail the risk of exposure to and/or potential harm posed by the COVID-19 virus with having a surgery/procedure at this time versus the risk of delaying the surgery/procedure. It is not possible to know either the risk of delaying the surgery or procedure or chance of getting an infection with perfect accuracy, but a joint decision was made to proceed at this time with the scheduled surgery/procedure as indicated on the consent form. Patient was notified that we will need to comply with any screening or testing [facility] wishes to perform or that surgery may be delayed for any positive results. Discussed with the patient that I was tested for COVID-19 on 09/23/19 which was negative and on 10/07/19 which was negative and on 10/21/19 which was negative and on 11/04/19 which was negative and on 11/18/19 which was negative and on 12/09/19 which was negative and on 12/30/19 which was negative and on 02/03/20 which was negative and on 02/24/20 which was negative and on 03/14/20 which was negative. ? I received the COVID-19 vaccine (Moderna) on 03/22/20 and the second vaccine dose was received on 04/19/20.? When I was hospitalized on 05/22/20 I was tested for COVID-19 which was negative.? I was also? tested for COVID-19 on 06/06/20 which was negative and on 07/03/20 which was negative. HPI Consult Data Date of Consult: 09/06/20 PCP / Referring MD: MECCA Guerrero/Dr. Meaghan Campa MD Attending Care Provider: Dr. Meaghan Campa MD CURTAIN STITCHER: Dr. Matute. HPI Narrative Reason for Consultation: Traumatic hematoma right lateral thigh/hip. HPI Narrative: 80 F with a history of diabetes mellitus was admitted after a fall at home that resulted in a hematoma right lateral thigh. Patient is on Eliquis that is thought from previous atrial fibrillation. She fell a few days ago and landed on her right side. She became concerned because the hematoma was getting more painful and swollen. She denied any lightheadedness, dizziness, nausea or vomiting. Initial Hgb was 9.3 and has decreased to 7.5. CT of the abdomen and pelvis showed right posterior lateral thigh stranding and hyperdense collection likely representing hematoma and soft tissue injury and showed a right lower lobe mass with 7 previously biopsied as well as a 2.4 cm isodense possibly solid lesion of the right mid kidney with renal ultrasound recommended. I was asked to evaluate this patient for surgical options for treatment. [facility] Medical History (Updated 09/08/20 @ 22:[address] Cheng Matute MD) Acute postoperative anemia due to expected blood loss Anxiety Asthma Cataracts, bilateral Congestive heart failure (CHF) Current use of insulin Current use of terminal clerk anticoagulation Depression Diabetes Dyspnea Fall as cause of accidental injury at home as place of occurrence Heart failure with reduced left ventricular function High cholesterol History of stress test History of tobacco abuse Hoarseness Hyperlipidemia Hypertension Injury of omentum Muscle weakness (generalized) On home oxygen therapy Paroxysmal atrial fibrillation Post-menopausal Recurrent falls Restless legs Seasonal allergic reaction Traumatic hematoma of right thigh Type 2 diabetes mellitus Type II diabetes mellitus Type II diabetes mellitus with manifestations Visual impairment Home Medications acetaminophen 325 mg capsule 650 mg PO Q6H PRN cap 08/09/20 [History Last Taken Unknown] albuterol sulfate 90 mcg/actuation aerosol inhaler 1 puff INHALATION Q4H PRN g 08/09/20 [History Last Taken Unknown] aluminum-mag hydroxide-simethicone 400 mg-400 mg-40 mg/5 mL oral susp 10 ml PO DAILY PRN ml 08/09/20 [History Last Taken Unknown] atorvastatin 40 mg tablet 40 mg PO QHS 08/09/20 [History Last Taken Unknown] cholecalciferol (vitamin D3) 25 mcg (1,000 unit) capsule 25 mcg PO DAILY 08/09/20 [History Last Taken Unknown] ferrous sulfate 325 mg (65 mg iron) capsule,extended release 325 mg PO DAILY cap 08/09/20 [History Last Taken Unknown] guaifenesin 1,200 mg tablet, extended release 12 hr 1,200 mg PO Q12H PRN 08/09/20 [History Last Taken Unknown] hydrocortisone 1 % topical cream 1 applic TOPICAL TID PRN 08/09/20 [History Last Taken Unknown] insulin glargine 100 unit/mL (3 mL) subcutaneous pen 12 unit SUBCUT QHS ml 08/09/20 [History Last Taken Unknown] loperamide-simethicone 2 mg-125 mg tablet 1 tab PO DAILY PRN tab 08/09/20 [History Last Taken Unknown] losartan 100 mg tablet 100 mg PO DAILY 08/09/20 [History Last Taken Unknown] magnesium oxide 400 mg PO DAILY 08/09/20 [History Last Taken Unknown] metformin 1,000 mg tablet 1,000 mg PO BID 08/09/20 [History Last Taken Unknown] duzvfcwjpntq-bdlcjbrl-nnpnhn tablet 1 tab PO DAILY 08/09/20 [History Last Taken Unknown] omega-3 fatty acids 1,000 mg capsule 1,000 mg PO DAILY 08/09/20 [History Last Taken Unknown] oxymetazoline 0.05 % nasal spray 2 spray INTRANASAL Q12H PRN 08/09/20 [History Last Taken Unknown] sodium chloride 0.65 % nasal spray aerosol 2 spray INTRANASAL Q2H PRN 08/09/20 [History Last Taken Unknown] standard wheelchair #1 ea 08/11/20 [Rx Last Taken Unknown] standard wheelchair 1 ea OTHER DAILY #1 device 08/11/20 [Rx Last Taken Unknown] blood pressure test kit-large #1 ea 08/16/20 [Rx Last Taken Unknown] furosemide 20 mg tablet 20 mg PO DIRECTED #90 tab 08/16/20 [Rx Last Taken Unknown] verapamil 120 mg tablet 120 mg PO DAILY #30 tab 08/16/20 [Rx Last Taken Unknown] citalopram 10 mg tablet 10 mg PO DAILY #30 tab 08/17/20 [Rx Last Taken Unknown] Boostrix Tdap 2.5 Lf unit-8 mcg-5 Lf/0.5 mL intramuscular syringe 0.5 ml IM ONCE #1 ml NS 08/24/20 [Clinic Last Taken Unknown] albuterol sulfate 2.5 mg INHALATION Q6H #180 ml 08/24/20 [Rx Last Taken Unknown] pantoprazole 40 mg tablet,delayed release 40 mg PO DAILY #30 tab 08/24/20 [Rx Last Taken Unknown] spironolactone 25 mg tablet 25 mg PO DAILY #30 tab 08/25/20 [Rx Last Taken Unknown] fluticasone propionate 230 mcg-salmeterol 21 mcg/actuation HFA inhaler 2 puff INHALATION BID #12 g 08/28/20 [Rx Last Taken Unknown] clindamycin HCl 300 mg PO Q6H 7 Days #28 cap 09/09/20 [Rx Last Taken Unknown] metoprolol tartrate 50 mg PO BID #60 tab 09/09/20 [Rx Last Taken Unknown] Allergy/AdvReac Type Severity Reaction Status Date / Time morphine Allergy Itching Verified 09/07/20 13:46 Penicillins Allergy PT UNSURE Verified 09/05/20 09:38 OF REACTION Family History Mother Diabetes Heart disease Brother Cancer Surgical History History of Social History household members: none housing: apartment number of children: 3 current occupational status: retired current occupational exposures/hazards: No pets and animals: No history of recent travel: Yes (From [place]) details: Moved to [facility] to be closer to family out of state: Yes out of country: No Smoking Status: Former smoker quit date: 07/24/76 pack-years: 4 Tobacco: How many years used: 7 alcohol intake: current details: 1 glass wine 4 times a year. Social drinker. substance use type: does not use what type of physical activity do you participate in: none ROS ROS Narrative Constitutional: Denies anorexia, change in weight, fever(s), malaise or weakness Eyes: Denies double vision, erythema or loss of vision HEENT: Reports post nasal drip; Denies dysphagia, headache(s) or nasal congestion Cardiovascular: Denies chest pain, dyspnea on exertion, edema, lightheadedness or orthopnea Gastrointestinal: Denies abdominal pain Genitourinary: Denies burning urination, dysuria or hematuria Musculoskeletal: Reports joint swelling; Denies arthralgias, back pain, joint pain or joint stiffness Neurologic: Denies confusion, dizziness or focal weakness Psychiatric: Denies anxiety or depression Endocrinology: Denies change in body appearance Physical Exam Eyes Eyes Narrative: PHYSICAL EXAMINATION General - Alert and Oriented. HEENT - PERRL. EOMI. Throat is clear. Neck - Supple and nontender. No cervical adenopathy. Lungs - Clear to auscultation. Heart - Regular rate and rhythm. Abdomen - Soft and nondistended. Extremities - FROM. No axillary adenopathy. Radial pulses are palpable. No inguinal adenopathy. Femoral pulses are palpable. On the right lateral thigh is a palpable hematoma that measures 12 cm. Some tenderness to palpation. No clinical evidence of infection. No vascular compromise to the overlying skin. Some ecchymosis is present. Neuro - CN II-XII grossly intact. Psych - Normal mood and affect. Lab / Micro Data Result Diagrams: 09/09/20 05:43 09/09/20 05:43 Labs: Laboratory Results - last 24 hr 09/05/20 09/05/20 09/05/20 11:00 16:07 17:39 WBC 10.5 RBC 2.80 L Hgb 8.8 L Hct 26.5 L MCV 94.6 MCH 31.4 MCHC 33.2 RDW Std Deviation 41.2 RDW Coeff of Arik 12.0 Plt Count 378 MPV 9.2 Immature Gran % (Auto) 0.700 Neut % (Auto) 65.4 Lymph % (Auto) 14.0 L [place] % (Auto) 12.9 H Eos % (Auto) 6.7 H Baso % (Auto) 0.3 Absolute Neuts (auto) 6.9 Absolute Lymphs (auto) 1.46 Nucleated RBC % 0 Diff Path Review Reviewed Sodium Potassium Chloride Carbon Dioxide Anion Gap BUN Creatinine Estim Creat Clear Calc Est GFR (MDRD) Af Amer Est GFR (MDRD) Non-Af BUN/Creatinine Ratio Glucose Calcium POC Glucose 227 H Crossmatch 09/05/20 09/06/20 09/06/20 21:45 05:30 05:30 WBC 9.4 RBC 2.41 L Hgb 7.5 L Hct 22.9 L MCV 95.0 MCH 31.1 MCHC 32.8 RDW Std Deviation 42.2 RDW Coeff of Arik 12.2 Plt Count 332 MPV 9.2 Immature Gran % (Auto) 0.500 Neut % (Auto) 60.6 Lymph % (Auto) 15.3 L [place] % (Auto) 15.4 H Eos % (Auto) 7.7 H Baso % (Auto) 0.5 Absolute Neuts (auto) 5.7 Absolute Lymphs (auto) 1.44 Nucleated RBC % 0 [address] Review Sodium 140 Potassium 4.7 Chloride 109 H Carbon Dioxide 28.0 Anion Gap 3 L BUN 30 H Creatinine 1.06 H Estim Creat Clear Calc 40.29 Est GFR (MDRD) Af Amer 64 Est GFR (MDRD) Non-Af 53 L BUN/Creatinine Ratio 28.3 H Glucose 119 H Calcium 8.1 L POC Glucose 284 H Crossmatch 09/06/20 09/06/20 09/06/20 06:33 12:04 15:03 WBC RBC Hgb Hct MCV MCH MCHC RDW Std Deviation RDW Coeff of Arik Plt Count MPV Immature Gran % (Auto) Neut % (Auto) Lymph % (Auto) [place] % (Auto) Eos % (Auto) Baso % (Auto) Absolute Neuts (auto) Absolute Lymphs (auto) Nucleated RBC % Diff Path Review Sodium Potassium Chloride Carbon Dioxide Anion Gap BUN Creatinine Estim Creat Clear Calc Est GFR (MDRD) Af Amer Est GFR (MDRD) Non-Af BUN/Creatinine Ratio Glucose Calcium POC Glucose 126 H 137 H Crossmatch See Detail Micro: Microbiology 09/05/20 11:00 SARS-CoV-2 Antigen (Rapid) - Final Mucosa - Nose CT/Abdomen/Pelvis without Cont IMPRESSION: 1. No hydronephrosis or urinary tract calcifications. 2. Right posterior lateral thigh stranding and hyperdense collection likely representing hematoma/soft tissue injury. 3. Right lower lobe mass previously biopsied. 4. 2.4 cm isodense (possible solid) lesion of the right mid kidney. Renal ultrasound recommended. 5. Moderate fecal retention. No colon wall thickening. Diverticulosis without evidence of diverticulitis. Electronically Signed: Todd Shaw MD ([place]) at 11:56 EDT , Service support , Procedure Criteria Type of Procedure Procedure Type: Elective Elective Risks - COVID COVID Risk Discussion: The surgeon/proceduralist and patient have discussed in detail the risk of exposure to and/or potential harm posed by the COVID-19 virus with having a surgery/procedure at this time versus the risk of delaying the surgery/procedure. It is not possible to know either the risk of delaying the surgery or procedure or chance of getting an infection with perfect accuracy, but a joint decision was made between the patient and the surgeon/proceduralist to proceed at this time with the scheduled surgery/procedure as indicated on the consent form. Charges/Coding Visit Charges Inpatient E&M: 02392 Init Hosp L2 (ICD-10 - S70.11xA, D62, E11.9, W19.xxxA, Z79.01)
[2020-09-06 16:07] LABS: BNP,B-Type NATRIURETIC PEPTIDE 961.3 pg/mL (0-100)
--- NOTE | 2020-09-06 16:08 | CHAPLAIN ---
Type of Pastoral Visit _x__ Initial Visit ___ Follow-up Visit ___ On-call Visit ___ General Patient Visit ___ Spiritual Assessment ___ Family Conference ___ Bereavement ___ Rapid Response ___ Code Blue ___ Other (describe below) Pastoral Care Referral From _x__ Patient ___ Family ___ Nurse ___ Physician ___ Perl Software Engineer ___ Principal Software Engineer ___ Other (describe below) Sacrament/Intervention _x__ Active listening ___ Anointing ___ Episcopal ___ Bereavement ___ Communion ___ Lizette exploration ___ _x__ Life review _x__ Prayer ___ Reconciliation ___ Sacrament of Sick _x__ Supportive presence ___ Wedding ___ Other (describe below) Pastoral Comments
[2020-09-06] MEDS: Furosemide 40 MG/4 ML Vial IV (16:35)
[2020-09-06] MEDS: Insulin Lispro 100 UNIT/ML INSULN.PEN SC ×2 (16:35→21:13)
[2020-09-06] MEDS: 0.9% Saline Lock 10 ML Syringe IV (16:43)
[2020-09-06 16:50] LABS: Bedside Glucose 265 mg/dL (70-110)
[2020-09-06] MEDS: Atorvastatin Calcium 40 MG Tablet PO (21:08)
[2020-09-07] VITALS (32 sets, daily range): BP systolic 98–178; BP diastolic 42–116; PULSE 53–98; RESP 16–58; TEMP 36.4–36.9; O2SAT 92–100; BMI 27.1
[2020-09-07 00:11] LABS: Bedside Glucose 354 mg/dL (70-110)
[2020-09-07] MEDS: Acetaminophen 325 MG Tablet 650 MG PO ×3 (03:07→22:12)
[2020-09-07] MEDS: Albuterol 2.5 MG/3 ML VIAL.NEB. INHALATION ×2 (03:30→20:04)
[2020-09-07] MEDS: Insulin Lispro 100 UNIT/ML INSULN.PEN SC ×3 (06:34→22:33)
[2020-09-07 06:48] LABS: Absolute Lymphocyte Count 1.22 X10^3/uL (0.83-4.51); Absolute Neutrophil Count 5.2 X10^3/uL (2.0-7.7); Basophil# 0.03 X10^3/uL; Basophil% 0.4 % (0-1); Eosinophil# 0.69 X10^3/uL; Eosinophils% 8.1 % (0-5); Hematocrit 23.2 % (37-47); Hemoglobin 7.5 g/dL (12.0-15.0); Lymphocyte # 1.22 X10^3/ul (0.83-4.51); Lymphocyte % 14.3 % (19-41); Mean Corp Hgb Conc 32.3 g/dL (32-36); Mean Corpuscular Volume 95.9 fL (81-99); Mean Platelet Vol. 9.6 fl (6.2-12.0); Monocyte# 1.27 X10^3/uL; Monocyte% 14.9 % (0-10); NRBC Flagged by Analyzer 0 % (0-5); Neutrophil # 5.23 X10^3/uL (2.7-7.7); Neutrophil % 61.5 % (47-70); Platelet Count 337 K/mm3 (150-450); RBC Distribution Width CV 12.4 % (11.6-14.6); RBC Distribution Width SD 42.9 fl (35.1-43.9); Red Blood Count 2.42 M/mm3 (4.2-5.4); White Blood Count 8.5 K/mm3 (4.4-11.0)
[2020-09-07 06:59] LABS: Partial Thromboplast Time 37.6 Seconds (24.1-36.2)
[2020-09-07 07:08] LABS: Anion Gap 4 (5-15); BUN 36 mg/dL (7-18); BUN/Creat Ratio 28.8 RATIO (10-20); Calcium,Total 8.5 mg/dL (8.5-10.1); Chloride 106 mmol/L (98-107); Creatinine, Serum 1.25 mg/dL (0.55-1.02); EST Glomerular Filtration Rate 44 mL/min (>60); Est Glom Filt Rate - Afr Amer 53 mL/min (>60); Estimated Creatinine Clearance 34.16 ml/min; Glucose 258 mg/dL (74-106); Potassium 4.6 mmol/L (3.5-5.1); Sodium Level 138 mmol/L (136-145)
--- NOTE | 2020-09-07 07:17 | PN.HOSP_ITS ---
Subjective Subjective Patient seen and examined. Pain is well controlled and she has no complaints today. She is for evacuation of right thigh hematoma today. Hgb is still 7.5 today. Review of systems otherwise negative. Objective Data Objective Data Vital Signs: Vital Signs Temp Pulse Resp BP Pulse Ox 98.3 F 69 18 165/67 H 99 09/07/20 02:20 09/07/20 03:42 09/07/20 03:33 09/07/20 02:20 09/07/20 02:20 Oxygen Flow Rate (L/min) 2 Oxygen Delivery Method Nasal Cannula Weight: 168 lb 6.931 oz Body Mass Index (BMI) 27.1 Intake & Output: Intake and Output for Last 24 Hours 09/05/20 09/06/20 09/07/20 23:59 23:59 23:59 Intake Total 3350 / 3600 2242.5 / 2242.5 Balance 3350 / 3600 2242.5 / 2242.5 Lab / Micro Data Result Diagrams: 09/07/20 06:20 09/07/20 06:20 Labs: Laboratory Results - last 24 hr 09/05/20 09/06/20 09/06/20 11:00 05:30 12:04 WBC RBC Hgb Hct MCV MCH MCHC RDW Std Deviation RDW Coeff of Arik Plt Count MPV Immature Gran % (Auto) Neut % (Auto) Lymph % (Auto) Alexander % (Auto) Eos % (Auto) Baso % (Auto) Absolute Neuts (auto) Absolute Lymphs (auto) Nucleated RBC % Diff Path Review Reviewed APTT Sodium Potassium Chloride Carbon Dioxide Anion Gap BUN Creatinine Estim Creat Clear Calc Est GFR (MDRD) Af Amer Est GFR (MDRD) Non-Af BUN/Creatinine Ratio Glucose Calcium B-Natriuretic Peptide 961.3 H POC Glucose 137 H Blood Type Antibody Screen Crossmatch 09/06/20 09/06/20 09/06/20 15:03 16:34 21:10 WBC RBC Hgb Hct MCV MCH MCHC RDW Std Deviation RDW Coeff of Arik Plt Count MPV Immature Gran % (Auto) Neut % (Auto) Lymph % (Auto) Alexander % (Auto) Eos % (Auto) Baso % (Auto) Absolute Neuts (auto) Absolute Lymphs (auto) Nucleated RBC % Diff Path Review APTT Sodium Potassium Chloride Carbon Dioxide Anion Gap BUN Creatinine Estim Creat Clear Calc Est GFR (MDRD) Af Amer Est GFR (MDRD) Non-Af BUN/Creatinine Ratio Glucose Calcium B-Natriuretic Peptide POC Glucose 265 H 354 H Blood Type O POSITIVE Antibody Screen NEGATIVE Crossmatch See Detail 09/07/20 09/07/20 09/07/20 06:20 06:20 06:20 WBC 8.5 RBC 2.42 L Hgb 7.5 L Hct 23.2 L MCV 95.9 MCH 31.0 MCHC 32.3 RDW Std Deviation 42.9 RDW Coeff of Arik 12.4 Plt Count 337 MPV 9.6 Immature Gran % (Auto) 0.800 Neut % (Auto) 61.5 Lymph % (Auto) 14.3 L [place] % (Auto) 14.9 H Eos % (Auto) 8.1 H Baso % (Auto) 0.4 Absolute Neuts (auto) 5.2 Absolute Lymphs (auto) 1.22 Nucleated RBC % 0 [address] Path Review APTT 37.6 H Sodium 138 Potassium 4.6 Chloride 106 Carbon Dioxide 28.0 Anion Gap 4 L BUN 36 H Creatinine 1.25 H Estim Creat Clear Calc 34.16 Est GFR (MDRD) Af Amer 53 L Est GFR (MDRD) Non-Af 44 L BUN/Creatinine Ratio 28.8 H Glucose 258 H Calcium 8.5 B-Natriuretic Peptide POC Glucose Blood Type Antibody Screen Crossmatch Micro: Microbiology 09/05/20 11:00 Mucosa - Nose SARS-CoV-2 Antigen (Rapid) - Final Physical Exam Const alert and oriented x3 General Appearance: cooperative HEENT normocephalic, head/scalp atraumatic, hearing grossly normal bilaterally and moist oral mucous membranes Eyes PERRL, EOMs intact bilaterally and conjunctivae normal Neck no lymphadenopathy and supple Resp normal respiratory effort, no retractions and no use of accessory muscles Cardio regular rate, regular rhythm, S1 normal heart sound, S2 normal heart sound and no murmurs GI normal to inspection, nondistended, normoactive bowel sounds, soft to palpation, non-tender and non-distended Extremity normal to inspection Extremity Narrative: has firm hematoma on the over the right hip, tender to touch, ~ 10 x10cm, with bruising over right lateral thigh. Hematoma is enlarging. Skin Skin Narrative: bruising over right hip due t mechanical fall. Neuro oriented x3 Sensorium / Orientation: awake and alert Psych affect normal Mood & Affect: depressed Assessment & Plan Assessment/Plan (1) Hematoma: PLAN: #RLE thigh hematoma due to mechanical fall and anticoagulation * Hb is still 7.5 today. * eliquis on hold * plastic surgery on board, for evacuation of hematoma today * PT.OT on board. * fall precautions * transfuse if Hb <7 * #Right lung cancer * Recently diagnosed via biopsy. * couldnt have PET scan * will need to reschedule PET scan * follow up with oncology on outpatient basis * #Type 2 diabetes mellitus: * On Lantus 12 units nightly. * Insulin sliding scale. * Checks AC at bedtime. * Hold Metformin. * #Afib * son says patient was diagnosed with afib in June 2020 in [place], and was started on eliquis * currently in sinus rhythm * 2D echo done 09/01/2020 showed EF of 40% with moderate left global hypokinesis and moderate concentric left ventricular hypertrophy with left atrium moderately enlarged and 3+ diastolic dysfunction. 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 * PO lasix held, now on IV lasix 40mg bid as well as spironolactone * monitor intake and output. Fluid restriction to 1500cc daily * #Chronic hypoxic respiratory failure due to heart failure * Patient chronically on 2 L of oxygen. Titrate oxygen to maintain saturation above 90%. * Now on 2 L of oxygen. * #Asthma: Continue breathing treatments with bronchodilators. #Hypertension: On losartan and metoprolol DVT prophylaxis: SCDs. No anticoagulation account of hematoma. CODE STATUS: Full code Charges/Coding Visit Charges Inpatient E&M: 24365 Subs Hosp L3
[2020-09-07] MEDS: Morphine 2 MG/ML Syringe IV (07:59)
[2020-09-07] MEDS: 0.9% Saline Lock 10 ML Syringe IV ×3 (08:02→23:54)
[2020-09-07] MEDS: Verapamil 120 MG Tablet PO (08:02)
[2020-09-07] MEDS: Citalopram 10 MG Tablet PO (08:02)
[2020-09-07] MEDS: Pantoprazole Sodium 40 MG Tablet PO (08:02)
[2020-09-07] MEDS: Metoprolol Tartrate 50 MG Tablet PO ×2 (08:02→22:36)
[2020-09-07] MEDS: Losartan Potassium 100 MG Tablet PO (08:03)
[2020-09-07] MEDS: Spironolactone 25 MG Tablet PO (08:03)
[2020-09-07] MEDS: Furosemide 40 MG/4 ML Vial IV ×2 (08:05→23:01)
--- NOTE | 2020-09-07 09:25 | NURSING ---
skin photo: right lateral thigh
--- NOTE | 2020-09-07 09:41 | NURSING ---
In to assess the right posterolateral hip/thigh area. pt has two ecchymotic areas that are greatly faded marked with skin pen. these have also decreased in size according to the skin markings. there is a hematoma noted mostly between these two markings that measures approx 15cm x 10cm. skin slightly pink, but not erythema noted. Pt is scheduled for evacuation of the hematoma today with Dr Matute. see wound photo.
[2020-09-07] MEDS: Lactated Ringers 1,000 ML 100 ML IV ×2 (10:20→13:00)
--- NOTE | 2020-09-07 10:20 | CASEMGMT ---
Addendum entered by Lauren Hidalgo 09/07/20 12:34: Return call from [facility] and they are able to accept pt. Pt out of the room for procedure, unable to update at this time. Plan: [facility], pending AROLDO Peacock Original Note: Social Work SW received a call from Hetal at [facility] stating she has talked to pt son and son requesting pt admit to [facility] after hospitalization. ALANA met with pt and son and introduced self and role of SW. Pt son William stating that since pt will be needing surgery he does not feel she can return home after discharge and would prefer pt to go to [facility] for short term rehab prior to return home. SW inquired of pt opinion and she is in agreement with son. Referral faxed to Hetal at [facility] and VM left. Surgery planned for today. SW will continue to follow. Plan: [facility], pending approval and AROLDO Peacock
[2020-09-07] MEDS: Lidocaine 1% /Epi 1:100 (20ml) 20 ML Vial (10:29)
--- NOTE | 2020-09-07 10:42 | CASEMGMT ---
Social Work Pt states to admitting RN that she does have a living will and health care POA naming her son William Palma. Pt is aware that she has not provided a copy to [facility] and will bring a copy in when able. AROLDO Duran
--- NOTE | 2020-09-07 10:50 | TISS_PTH ---
PATIENT: PAPI RANDHAWA LOC: [facility] U#:[id number] AGE/SX: 80/F ROOM: IN311 RE09/07/[address]: Dr. Meaghan Campa MD : [id number] BED: 1 DIS: 09/09/2020 SPEC #: [id number] RECD: 09/07/20 15:07 STATUS: TAMARA VÁSQUEZJez #: [id number] RADHA: 09/07/20 10:[address]: Cheng Matute DEPT: SURGICAL PATHOLOGY RECD BY: Sharath Emery ENTERED: 09/08/20 07:55 SP TYPE: Tissue Bx JIA DR: MD Lizy Mcarthur, SPONGE DIVER-C Tissues: Thigh, NOS Procedures: Surgery Specimen Level IV HEADER OPERATION: Incision and drainage, evacuation hematoma lateral thigh PRE-OP DIAGNOSIS: Traumatic hematoma right lateral thigh/hip TISSUE SUBMITTED: Hematoma right lateral thigh MICROSCOPIC DIAGNOSIS Hematoma right lateral thigh, evacuation hematoma: Pieces of skin with underlying tissue, adipose tissue with acute and chronic inflammation, granulation tissue reaction, fat necrosis, hemorrhage and blood clots, clinically hematoma right lateral thigh. BENJAMIN:riki 09/11/2020 MICROSCOPIC DESCRIPTION Slides are reviewed. GROSS DESCRIPTION Received in fixative is one container labeled with the patient's name and designated hematoma right lateral thigh. The specimen consists of a piece of jones-white skin ellipse with underlying tissue measuring 12 x 2.5 cm and up to 2.5 cm in thickness. Multiple fragments of soft tissue are also noted measuring in aggregate 6 x 6 x 3 cm. No mass lesion is identified. Also present in the container are multiple blood clots measuring in aggregate 12 x 9 x 4 cm. [employer] sections are submitted in two cassettes. / BENJAMIN:riki 09/08/20 TC:5 CPT: 67107
--- NOTE | 2020-09-07 12:13 | OP.PCM_ITS ---
Problems Associated Problem List Diagnoses (1) Fall as cause of accidental injury at home as place of occurrence: (2) Acute postoperative anemia due to expected blood loss: (3) Traumatic hematoma of right thigh: (4) Type 2 diabetes mellitus: (5) Current use of machine long goods helper anticoagulation: (6) Hemoglobin A1c greater than 9.0%: (7) Open wound of right thigh: Report of Operation Date of Procedure: 09/07/20 Pre-Operative Diagnosis: 1. Traumatic hematoma right lateral thigh. 2. Anemia due to expected blood loss. 3. Diabetes mellitus. 4. Fall at home. 5. 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 6. HgbA1c > 9.0. Post-Operative Diagnosis: 1. Traumatic infected hematoma right lateral thigh. 2. Anemia due to expected blood loss. 3. Diabetes mellitus. 4. Fall at home. 5. custodial use of anticoagulation. 6. HgbA1c > 9.0. Surgery/Procedure Performed:: Surgical preparation right lateral thigh with incision and drainage and excisional debridement and evacuation traumatic infected hematoma (90 cm2). Description of Surgical Findings:: 80 F with a history of diabetes mellitus was admitted after a fall at home that resulted in a hematoma right lateral thigh. Patient is on Eliquis that is thought from previous atrial fibrillation. She fell a few days ago and landed on her right side. She became concerned because the hematoma was getting more painful and swollen. She denied any lightheadedness, dizziness, nausea or vomiting. Initial Hgb was 9.3 and has decreased to 7.5. CT of the abdomen and pelvis showed right posterior lateral thigh stranding and hyperdense collection likely representing hematoma and soft tissue injury and showed a right lower lobe mass with 7 previously biopsied as well as a 2.4 cm isodense possibly solid lesion of the right mid kidney with renal ultrasound recommended. I was asked to evaluate this patient for surgical options for treatment. Patient was informed of the risks and complications of the procedure including alternatives to surgery. These were discussed with the patient personally. Patient voices understanding and wishes to proceed. Size of defect right lateral thigh - 15 x 6 x 6 cm. Surgeon: Cheng Matute menswear salesperson: None Type of Anesthesia: Local MAC (xylocaine with epinephrine and IV sedation.) Specimen's removed: Traumatic infected hematoma right lateral thigh to Pathology and Microbiology. Drains: None. Estimated Blood Loss (mL): 250. Description of Procedure: Patient was taken to OR in supine position and was given IV sedation. The right thigh was prepped and draped in the usual fashion. SCD's were placed for DVT prophylaxis. Perioperative antibiotics were given intravenously. The hematoma right lateral thigh was infiltrated with xylocaine and epinephrine. After waiting 5 minutes for the anesthetic to take effect, a longitudinal elliptical incision was made down into the subcutaneous tissue. The hematoma was deep to the muscle. The hematoma was evacuated. Some extension proximally and distally was done. Some creaminess was seen on the hematoma indicating clinical infection. There was thickened capsular scar tissue that was also excised. Some fat necrosis was seen and excised and debrided. The hematoma extended down to the bone and involved the vastus lateralis muscle. The bone itself was not exposed. There were three muscular bleeders that were easily controlled with electrocautery and gauze compression. The hematoma tissue was sent to Pathology for analysis and to Microbiology for culture. A positive culture will necessitate antibiotic therapy. The wound was irrigated with saline. Hemostasis was obtained with electrocautery. The size of the hematoma wound after incision and drainage and excisional debridement and evacuation of the hematoma is 15 x 6 x 6 cm or 90 cm2. The hematoma wound was dressed with Mepitel nonadherent dressing followed by Kerlix gauze and Betadine followed by dry Kerlix gauze and an ABD pad and followed with a compression radha wrap. Patient tolerated the procedure well and was sent to PACU in satisfactory condition. Patient will be sent upstairs for continued postop care. Postoperatively a Hgb will be checked with the anticipation of PRBC transfusion. The VAC will be applied tomorrow. Grafts/Implants Used: None. Complications None. Admit VTE Documentation VTE Present on Admission: No (patient is on Eliquis which is on hold.) VTE Mechan Device Prophylaxis: SCD's VTE Pharm Prophylaxis ordered?: No Addendum Addendum: Surgery Charges CPT - 91535 ICD-10 - S71.101A, S70.11xA, D62, E11.9, R73.09, W19.xxxA, Z79.01 80553 S70.11xA, D62, E11.9, R73.09, S71.101A, W19.xxxA, Z79.01
[2020-09-07 12:40] LABS: Bedside Glucose 253 mg/dL (70-110)
--- NOTE | 2020-09-07 12:47 | SUR.PHASEI ---
Patients's blood glucose is [address] Valadez was made aware and no intervention was orderded,
[2020-09-07] MEDS: oxyCODONE 5 MG Tablet PO ×2 (14:41→22:12)
[2020-09-07] MEDS: Senna/Docusate Sodium 1 Tablet PO (14:41)
[2020-09-07 16:42] LABS: Hemoglobin 7.1 g/dL (12.0-15.0); Mean Corp Hgb Conc 32.3 g/dL (32-36); Mean Corpuscular Volume 96.1 fL (81-99); Mean Platelet Vol. 9.5 fl (6.2-12.0); Platelet Count 315 K/mm3 (150-450); RBC Distribution Width CV 12.5 % (11.6-14.6); RBC Distribution Width SD 42.7 fl (35.1-43.9); Red Blood Count 2.29 M/mm3 (4.2-5.4); White Blood Count 7.3 K/mm3 (4.4-11.0)
[2020-09-07 16:55] LABS: Bedside Glucose 236 mg/dL (70-110)
[2020-09-07 16:55] LABS: Bedside Glucose 189 mg/dL (70-110)
[2020-09-07] MEDS: Budesonide Respules 0.5 MG/2 ML AMPUL.NEB. INHALATION (20:04)
[2020-09-07] MEDS: Sodium Chloride 0.65% 1 SPRAY SPRAY.BTL 2 SPRAY NASAL (22:32)
[2020-09-07] MEDS: Atorvastatin Calcium 40 MG Tablet PO (22:37)
[2020-09-08] VITALS (23 sets, daily range): BP systolic 139–172; BP diastolic 68–87; PULSE 65–98; RESP 16–20; TEMP 36.6–37; O2SAT 94–98
[2020-09-08 00:10] LABS: Bedside Glucose 248 mg/dL (70-110)
[2020-09-08] MEDS: 0.9% Saline Lock 10 ML Syringe IV ×4 (03:54→21:55)
[2020-09-08] MEDS: oxyCODONE 5 MG Tablet PO ×3 (04:04→17:45)
[2020-09-08 06:28] LABS: Absolute Neutrophil Count 4.3 X10^3/uL (2.0-7.7); Basophil# 0.04 X10^3/uL; Basophil% 0.6 % (0-1); Eosinophil# 0.66 X10^3/uL; Eosinophils% 9.1 % (0-5); Hematocrit 22.5 % (37-47); Hemoglobin 7.1 g/dL (12.0-15.0); Lymphocyte % 16.6 % (19-41); Mean Corp Hgb Conc 31.6 g/dL (32-36); Mean Corpuscular Hgb 30.9 pg (27.0-32.0); Mean Corpuscular Volume 97.8 fL (81-99); Mean Platelet Vol. 9.8 fl (6.2-12.0); Monocyte# 1.03 X10^3/uL; Monocyte% 14.3 % (0-10); NRBC Flagged by Analyzer 0 % (0-5); Neutrophil # 4.25 X10^3/uL (2.7-7.7); Neutrophil % 58.8 % (47-70); Platelet Count 318 K/mm3 (150-450); RBC Distribution Width CV 12.5 % (11.6-14.6); RBC Distribution Width SD 43.5 fl (35.1-43.9); White Blood Count 7.2 K/mm3 (4.4-11.0)
[2020-09-08 07:00] LABS: Bedside Glucose 126 mg/dL (70-110)
[2020-09-08 07:06] LABS: Anion Gap 7 (5-15); BUN 35 mg/dL (7-18); BUN/Creat Ratio 28.2 RATIO (10-20); Calcium,Total 8.6 mg/dL (8.5-10.1); Chloride 105 mmol/L (98-107); Creatinine, Serum 1.24 mg/dL (0.55-1.02); EST Glomerular Filtration Rate 44 mL/min (>60); Est Glom Filt Rate - Afr Amer 54 mL/min (>60); Estimated Creatinine Clearance 34.44 ml/min; Glucose 251 mg/dL (74-106); Potassium 4.7 mmol/L (3.5-5.1); Prealbumin 21.1 mg/dL (20.0-40.0); Sodium Level 138 mmol/L (136-145)
[2020-09-08] MEDS: Multivitamins,Ther W-Minerals Tablet 1 TABLET PO (07:37)
[2020-09-08] MEDS: Cholecalciferol (VIT D3) 25 MCG TABLET (1,000 UNITS) PO (07:37)
[2020-09-08] MEDS: Ferrous Sulfate 325 MG Tablet PO (07:37)
--- NOTE | 2020-09-08 07:40 | PN.HOSP_ITS ---
Subjective Subjective Patient seen and examined. She is POD 1 for incision and drainage as well as evacuation of infected hematoma. Pain is well controlled today, and review of systems is otherwise negative. H is 7.1 today; it was 7.1 yesterday, and she was transfused with 2 units of PRBCs. Objective Data Objective Data Vital Signs: Vital Signs Temp Pulse Resp BP Pulse Ox 98.1 F 67 18 158/84 H 98 09/08/20 07:31 09/08/20 07:31 09/08/20 07:31 09/08/20 07:31 09/08/20 07:31 Oxygen Flow Rate (L/min) 2 Oxygen Delivery Method Nasal Cannula Weight: 168 lb 6.931 oz Body Mass Index (BMI) 27.1 Intake & Output: Intake and Output for Last 24 Hours 09/06/20 09/07/20 09/08/20 23:59 23:59 23:59 Intake Total 2242.5 / 2242.5 1662.92 / 1662.92 600 / 600 Output Total 1200 / 1200 Balance 2242.5 / 2242.5 1662.92 / 1662.92 -600 / -600 Lab / Micro Data Result Diagrams: 09/08/20 05:32 09/08/20 05:32 Labs: Laboratory Results - last 24 hr 09/06/20 09/07/20 09/07/20 15:03 06:33 12:35 WBC RBC Hgb Hct MCV MCH MCHC RDW Std Deviation RDW Coeff of Arik Plt Count MPV Immature Gran % (Auto) Neut % (Auto) Lymph % (Auto) Tama % (Auto) Eos % (Auto) Baso % (Auto) Absolute Neuts (auto) Absolute Lymphs (auto) Nucleated RBC % Sodium Potassium Chloride Carbon Dioxide Anion Gap BUN Creatinine Estim Creat Clear Calc Est GFR (MDRD) Af Amer Est GFR (MDRD) Non-Af BUN/Creatinine Ratio Glucose Calcium Prealbumin POC Glucose 236 H 253 H Blood Type O POSITIVE Antibody Screen NEGATIVE Crossmatch See Detail 09/07/20 09/07/20 09/07/20 16:19 16:35 22:31 WBC 7.3 RBC 2.29 L Hgb 7.1 L Hct 22.0 L MCV 96.1 MCH 31.0 MCHC 32.3 RDW Std Deviation 42.7 RDW Coeff of Arik 12.5 Plt Count 315 MPV 9.5 Immature Gran % (Auto) Neut % (Auto) Lymph % (Auto) Tama % (Auto) Eos % (Auto) Baso % (Auto) Absolute Neuts (auto) Absolute Lymphs (auto) Nucleated RBC % Sodium Potassium Chloride Carbon Dioxide Anion Gap BUN Creatinine Estim Creat Clear Calc Est GFR (MDRD) Af Amer Est GFR (MDRD) Non-Af BUN/Creatinine Ratio Glucose Calcium Prealbumin POC Glucose 189 H 248 H Blood Type Antibody Screen Crossmatch 09/08/20 09/08/20 09/08/20 05:32 05:32 06:41 WBC 7.2 RBC 2.30 L Hgb 7.1 L Hct 22.5 L MCV 97.8 MCH 30.9 MCHC 31.6 L RDW Std Deviation 43.5 RDW Coeff of Arik 12.5 Plt Count 318 MPV 9.8 Immature Gran % (Auto) 0.600 Neut % (Auto) 58.8 Lymph % (Auto) 16.6 L Tama % (Auto) 14.3 H Eos % (Auto) 9.1 H Baso % (Auto) 0.6 Absolute Neuts (auto) 4.3 Absolute Lymphs (auto) 1.20 Nucleated RBC % 0 Sodium 138 Potassium 4.7 Chloride 105 Carbon Dioxide 26.0 Anion Gap 7 BUN 35 H Creatinine 1.24 H Estim Creat Clear Calc 34.44 Est GFR (MDRD) Af Amer 54 L Est GFR (MDRD) Non-Af 44 L BUN/Creatinine Ratio 28.2 H Glucose 251 H Calcium 8.6 Prealbumin 21.1 POC Glucose 126 H Blood Type Antibody Screen Crossmatch Micro: Microbiology 09/07/20 11:39 Tissue - Leg, Right Gram Stain - Final 09/05/20 11:00 Mucosa - Nose SARS-CoV-2 Antigen (Rapid) - Final Physical Exam Const alert, oriented x3 and no apparent distress General Appearance: cooperative Exam Limitations: no limitations HEENT normocephalic, head/scalp atraumatic, hearing grossly normal bilaterally and celestina st oral mucous membranes Head and Scalp: normocephalic Eyes PERRL, EOMs intact bilaterally and conjunctivae normal Neck no lymphadenopathy and supple Resp normal respiratory effort, no retractions and no use of accessory muscles Cardio regular rate, regular rhythm, S1 normal heart sound, S2 normal heart sound and no murmurs GI normal to inspection, nondistended, normoactive bowel sounds, soft to palpation, non-tender and non-distended Extremity normal to inspection Extremity Narrative: dressing over left lateral thigh at site of surgery. Peripheral Pulses: Yes pulses 2+ throughout Skin no rashes or lesions noted Neuro oriented x3 Sensorium / Orientation: awake and alert Psych affect normal Mood & Affect: depressed Assessment & Plan Assessment/Plan (1) Hematoma: PLAN: #RLE thigh hematoma due to mechanical fall and anticoagulation * s/p incision and drainage and evacuation of traumatic hematoma * Hb is 7.1 today. * eliquis on hold * plastic surgery on board * PT.OT on board. * fall precautions * will transfuse 2 more units of PRBCS today since Hb is still 7.1 * #Right lung cancer * Recently diagnosed via biopsy. * couldnt have PET scan due to admission * will need to reschedule PET scan * follow up with oncology on outpatient basis #Acute on chronic anemia due to acute blood loss * Hb was ~ 9 on admission, and is now 7.1 * transfuse 2 more units of PRBCs * #Type 2 diabetes mellitus: * On Lantus 12 units nightly. * Insulin sliding scale. * Checks AC at bedtime. * Hold Metformin. * #Afib * currently in sinus rhythm * 2D echo done 09/01/2020 showed EF of 40% with moderate left global hypokinesis and moderate concentric left ventricular hypertrophy with left atrium moderately enlarged and 3+ diastolic dysfunction. * eliquis on hold. 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 * PO lasix held, now on IV lasix 40mg bid as well as spironolactone * monitor intake and output. Fluid restriction to 1500cc daily * #Chronic hypoxic respiratory failure due to heart failure * Patient chronically on 2 L of oxygen. Titrate oxygen to maintain saturation above 90%. * Now on 2 L of oxygen. * #Asthma: Continue breathing treatments with bronchodilators. #Hypertension: On losartan and metoprolol DVT prophylaxis: SCDs. No anticoagulation account of hematoma. CODE STATUS: Full code Charges/Coding Visit Charges Inpatient E&M: 37516 Subs Hosp L3
[2020-09-08] MEDS: Verapamil 120 MG Tablet PO (07:42)
[2020-09-08] MEDS: Metoprolol Tartrate 50 MG Tablet PO ×2 (09:37→21:46)
[2020-09-08] MEDS: Losartan Potassium 100 MG Tablet PO (09:38)
[2020-09-08] MEDS: Omega-3 Acid Ethyl Esters 1 GM Capsule PO (09:38)
[2020-09-08] MEDS: Citalopram 10 MG Tablet PO (09:38)
[2020-09-08] MEDS: Pantoprazole Sodium 40 MG Tablet PO (09:39)
[2020-09-08] MEDS: Spironolactone 25 MG Tablet PO (09:40)
[2020-09-08] MEDS: Furosemide 40 MG/4 ML Vial IV ×2 (09:40→17:23)
[2020-09-08] MEDS: Magnesium Chloride 64 MG Delay Rel.Tablet 128 MG PO (09:43)
[2020-09-08 09:53] LABS: Hematocrit 33.4 % (37-47)
--- NOTE | 2020-09-08 10:02 | CASEMGMT ---
Addendum entered by Nan Hernandez 09/08/20 16:51: Precert attained, [facility] cannot take until tomorrow. SW let son know, let physician know, pt sleeping at present. Green sheet on chart along w/transport forms and COVID form, and hopital exemption in anticipation of weekend discharge. STACIE Hooper Original Note: ALANA called [facility], message left. SW let pt and son know in room [facility] accepted pt and we are waiting for precert. Updates faxed to [facility]. ALANA will continue to follow. STACIE Hooper
[2020-09-08] MEDS: diazePAM 5 MG Tablet PO ×3 (11:11→23:22)
[2020-09-08 11:26] LABS: Bedside Glucose 288 mg/dL (70-110)
[2020-09-08] MEDS: Insulin Lispro 100 UNIT/ML INSULN.PEN SC ×3 (11:26→21:55)
--- NOTE | 2020-09-08 12:24 | PCM.PN.SRG ---
Subjective Subjective Postop day #1 Patient sitting up in bed eating lunch. Objective Data Objective Data Vital Signs: Vital Signs Temp Pulse Resp BP Pulse Ox 98.1 F 67 18 158/84 H 94 09/08/20 07:31 09/08/20 09:37 09/08/20 08:00 09/08/20 07:31 09/08/20 08:46 Oxygen Flow Rate (L/min) 2 Oxygen Delivery Method Room Air Weight: 168 lb 6.931 oz Body Mass Index (BMI) 27.1 Intake & Output: Intake and Output for Last 24 Hours 09/06/20 09/07/20 09/08/20 23:59 23:59 23:59 Intake Total 2242.5 / 2242.5 1662.92 / 1662.92 600 / 600 Output Total 1200 / 1200 Balance 2242.5 / 2242.5 1662.92 / 1662.92 -600 / -600 Lab / Micro Data Result Diagrams: 09/08/20 09:45 09/08/20 05:32 Labs: Laboratory Results - last 24 hr 09/06/20 09/07/20 09/07/20 15:03 06:33 16:19 WBC 7.3 RBC 2.29 L Hgb 7.1 L Hct 22.0 L MCV 96.1 MCH 31.0 MCHC 32.3 RDW Std Deviation 42.7 RDW Coeff of Arik 12.5 Plt Count 315 MPV 9.5 Immature Gran % (Auto) Neut % (Auto) Lymph % (Auto) Miller % (Auto) Eos % (Auto) Baso % (Auto) Absolute Neuts (auto) Absolute Lymphs (auto) Nucleated RBC % Sodium Potassium Chloride Carbon Dioxide Anion Gap BUN Creatinine Estim Creat Clear Calc Est GFR (MDRD) Af Amer Est GFR (MDRD) Non-Af BUN/Creatinine Ratio Glucose Calcium Prealbumin POC Glucose 236 H Blood Type O POSITIVE Antibody Screen NEGATIVE Crossmatch See Detail 09/07/20 09/07/20 09/08/20 16:35 22:31 05:32 WBC 7.2 RBC 2.30 L Hgb 7.1 L Hct 22.5 L MCV 97.8 MCH 30.9 MCHC 31.6 L RDW Std Deviation 43.5 RDW Coeff of Arik 12.5 Plt Count 318 MPV 9.8 Immature Gran % (Auto) 0.600 Neut % (Auto) 58.8 Lymph % (Auto) 16.6 L Miller % (Auto) 14.3 H Eos % (Auto) 9.1 H Baso % (Auto) 0.6 Absolute Neuts (auto) 4.3 Absolute Lymphs (auto) 1.20 Nucleated RBC % 0 Sodium Potassium Chloride Carbon Dioxide Anion Gap BUN Creatinine Estim Creat Clear Calc Est GFR (MDRD) Af Amer Est GFR (MDRD) Non-Af BUN/Creatinine Ratio Glucose Calcium Prealbumin POC Glucose 189 H 248 H Blood Type Antibody Screen Crossmatch 09/08/20 09/08/20 09/08/20 05:32 06:41 09:45 WBC RBC Hgb 11.0 L Hct 33.4 L MCV MCH MCHC RDW Std Deviation RDW Coeff of Arik Plt Count MPV Immature Gran % (Auto) Neut % (Auto) Lymph % (Auto) Miller % (Auto) Eos % (Auto) Baso % (Auto) Absolute Neuts (auto) Absolute Lymphs (auto) Nucleated RBC % Sodium 138 Potassium 4.7 Chloride 105 Carbon Dioxide 26.0 Anion Gap 7 BUN 35 H Creatinine 1.24 H Estim Creat Clear Calc 34.44 Est GFR (MDRD) Af Amer 54 L Est GFR (MDRD) Non-Af 44 L BUN/Creatinine Ratio 28.2 H Glucose 251 H Calcium 8.6 Prealbumin 21.1 POC Glucose 126 H Blood Type Antibody Screen Crossmatch 09/08/20 11:22 WBC RBC Hgb Hct MCV MCH MCHC RDW Std Deviation RDW Coeff of Arik Plt Count MPV Immature Gran % (Auto) Neut % (Auto) Lymph % (Auto) Miller % (Auto) Eos % (Auto) Baso % (Auto) Absolute Neuts (auto) Absolute Lymphs (auto) Nucleated RBC % Sodium Potassium Chloride Carbon Dioxide Anion Gap BUN Creatinine Estim Creat Clear Calc Est GFR (MDRD) Af Amer Est GFR (MDRD) Non-Af BUN/Creatinine Ratio Glucose Calcium Prealbumin POC Glucose 288 H Blood Type Antibody Screen Crossmatch Micro: Microbiology 09/07/20 11:39 Tissue - Leg, Right Gram Stain - Final 09/07/20 11:39 Tissue - Leg, Right Wound Culture - Preliminary No growth-Final to follow 09/05/20 11:00 Mucosa - Nose SARS-CoV-2 Antigen (Rapid) - Final Physical Exam Const no apparent distress Resp normal respiratory effort Cardio regular rate GI soft to palpation Extremity Extremity Narrative: Right lateral thigh wound with no active bleeding. Saline dressing in place. REGULO wrap for compression. Assessment & Plan Assessment/Plan (1) Traumatic hematoma of right thigh: (2) Acute postoperative anemia due to expected blood loss: (3) Type 2 diabetes mellitus: (4) Recurrent falls: PLAN: Right lateral thigh wound with Saline wet to dry dressing in place. No active bleeding noted. Operative wound culture pending. Waiting for acceptance to [facility]. If she is transferred today, the dressing can be changed to a wound VAC there. IF she is not transferred today, then a wound VAC dressing will be placed later today at 150 mmHg. Hgb 7.5 before surgery yesterday. Hgb 7.1 after surgery yesterday. She was transfused with 2 units PRBC's. Repeat Hgb 11.0 this morning. Prealbumin 21.1. Encouraged protein intake. After discharge, will follow up with me at the wound center. Charges/Coding Procedures Integumentary [id number]: 32277 Global Visit
[2020-09-08] MEDS: Juven (unflavored) Packet 1 PACKET PO (17:23)
[2020-09-08 17:25] LABS: Bedside Glucose 221 mg/dL (70-110)
[2020-09-08] MEDS: Atorvastatin Calcium 40 MG Tablet PO (21:47)
[2020-09-08] MEDS: Acetaminophen 500 MG Tablet 1000 MG PO (21:47)
[2020-09-08 22:35] LABS: Bedside Glucose 358 mg/dL (70-110)
[2020-09-09] VITALS (9 sets, daily range): BP systolic 126–161; BP diastolic 57–66; PULSE 57–66; RESP 18–20; TEMP 36.6–37.1; O2SAT 98–100
[2020-09-09] MEDS: oxyCODONE 5 MG Tablet PO ×3 (03:05→15:43)
[2020-09-09 05:51] LABS: Absolute Lymphocyte Count 1.75 X10^3/uL (0.83-4.51); Basophil# 0.05 X10^3/uL; Basophil% 0.4 % (0-1); Eosinophil# 0.87 X10^3/uL; Eosinophils% 7.7 % (0-5); Hematocrit 31.8 % (37-47); Hemoglobin 10.7 g/dL (12.0-15.0); Lymphocyte # 1.75 X10^3/ul (0.83-4.51); Lymphocyte % 15.4 % (19-41); Mean Corp Hgb Conc 33.6 g/dL (32-36); Mean Corpuscular Hgb 31.1 pg (27.0-32.0); Mean Corpuscular Volume 92.4 fL (81-99); Mean Platelet Vol. 9.1 fl (6.2-12.0); Monocyte% 14.1 % (0-10); NRBC Flagged by Analyzer 0 % (0-5); Neutrophil # 7.01 X10^3/uL (2.7-7.7); Neutrophil % 61.7 % (47-70); POSITIVE DIFFERENTIAL YES; Platelet Count 336 K/mm3 (150-450); RBC Distribution Width CV 13.2 % (11.6-14.6); Red Blood Count 3.44 M/mm3 (4.2-5.4); White Blood Count 11.4 K/mm3 (4.4-11.0)
[2020-09-09 05:52] LABS: Differential Indicated SCAN CRITERIA MET
[2020-09-09 06:14] LABS: Anion Gap 4 (5-15); BUN 41 mg/dL (7-18); BUN/Creat Ratio 29.3 RATIO (10-20); Calcium,Total 8.9 mg/dL (8.5-10.1); Chloride 101 mmol/L (98-107); EST Glomerular Filtration Rate 39 mL/min (>60); Est Glom Filt Rate - Afr Amer 47 mL/min (>60); Glucose 173 mg/dL (74-106); Potassium 4.1 mmol/L (3.5-5.1); Sodium Level 137 mmol/L (136-145)
[2020-09-09] MEDS: Acetaminophen 500 MG Tablet 1000 MG PO ×2 (06:27→13:05)
[2020-09-09] MEDS: Insulin Lispro 100 UNIT/ML INSULN.PEN SC ×2 (06:30→11:26)
[2020-09-09 06:40] LABS: Bedside Glucose 206 mg/dL (70-110)
[2020-09-09] MEDS: Multivitamins,Ther W-Minerals Tablet 1 TABLET PO (09:31)
[2020-09-09] MEDS: Juven (unflavored) Packet 1 PACKET PO (09:31)
[2020-09-09] MEDS: Spironolactone 25 MG Tablet PO (09:31)
[2020-09-09] MEDS: Omega-3 Acid Ethyl Esters 1 GM Capsule PO (09:32)
[2020-09-09] MEDS: Ferrous Sulfate 325 MG Tablet PO (09:32)
[2020-09-09] MEDS: Pantoprazole Sodium 40 MG Tablet PO (09:32)
[2020-09-09] MEDS: Losartan Potassium 100 MG Tablet PO (09:32)
[2020-09-09] MEDS: Cholecalciferol (VIT D3) 25 MCG TABLET (1,000 UNITS) PO (09:32)
[2020-09-09] MEDS: Citalopram 10 MG Tablet PO (09:32)
[2020-09-09] MEDS: Furosemide 40 MG/4 ML Vial IV (09:33)
[2020-09-09] MEDS: Verapamil 120 MG Tablet PO (09:33)
[2020-09-09] MEDS: Metoprolol Tartrate 50 MG Tablet PO (09:35)
[2020-09-09] MEDS: 0.9% Saline Lock 10 ML Syringe IV ×2 (09:45→13:05)
[2020-09-09] MEDS: Magnesium Chloride 64 MG Delay Rel.Tablet 128 MG PO (09:45)
--- NOTE | 2020-09-09 11:38 | PCM.DC.SUM ---
Providers Date of Admission: 09/07/20 Primary Care Physician: MECCA Guerrero Consultations 09/06/20 07:23 Consult: Plastic Surgery Routine Consulting Provider: Cheng Matute Reason for Consult: right hip hematoma due to mechanical fall EMERGENT Consult: No MD Notified: Yes Date Notified: 09/06/20 Time Notified: 07:23 Method of Notification: Text Reason For Visit: RIGHT THIGH HEMATOMA DUE TO MECHANICAL FALL Diagnosis Discharge Diagnosis (1) Fall as cause of accidental injury at home as place of occurrence: Status: Acute Code(s): W19.XXXA - Unspecified fall, initial encounter; Y92.009 - Unspecified place in unspecified non-institutional (private) residence as the place of occurrence of the external cause (2) Acute postoperative anemia due to expected blood loss: Status: Acute Code(s): D62 - Acute posthemorrhagic anemia (3) Traumatic hematoma of right thigh: Status: Acute Code(s): S70.11XA - Contusion of right thigh, initial encounter (4) Type 2 diabetes mellitus: Status: Acute Code(s): E11.9 - Type 2 diabetes mellitus without complications (5) Current use of long-term anticoagulation: Status: Chronic Code(s): Z79.01 - 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 (current) use of anticoagulants Medications at Discharge Home Medications acetaminophen 325 mg capsule 650 mg PO Q6H PRN cap 08/09/20 albuterol sulfate 90 mcg/actuation aerosol inhaler 1 puff INHALATION Q4H PRN g 08/09/20 aluminum-mag hydroxide-simethicone 400 mg-400 mg-40 mg/5 mL oral susp 10 ml PO DAILY PRN ml 08/09/20 atorvastatin 40 mg tablet 40 mg PO QHS 08/09/20 cholecalciferol (vitamin D3) 25 mcg (1,000 unit) capsule 25 mcg PO DAILY 08/09/20 ferrous sulfate 325 mg (65 mg iron) capsule,extended release 325 mg PO DAILY cap 08/09/20 guaifenesin 1,200 mg tablet, extended release 12 hr 1,200 mg PO Q12H PRN 08/09/20 hydrocortisone 1 % topical cream 1 applic TOPICAL TID PRN 08/09/20 insulin glargine 100 unit/mL (3 mL) subcutaneous pen 12 unit SUBCUT QHS ml 08/09/20 loperamide-simethicone 2 mg-125 mg tablet 1 tab PO DAILY PRN tab 08/09/20 losartan 100 mg tablet 100 mg PO DAILY 08/09/20 magnesium oxide 400 mg PO DAILY 08/09/20 metformin 1,000 mg tablet 1,000 mg PO BID 08/09/20 vywwvxtwibwq-prldjuuu-utbpon tablet 1 tab PO DAILY 08/09/20 omega-3 fatty acids 1,000 mg capsule 1,000 mg PO DAILY 08/09/20 oxymetazoline 0.05 % nasal spray 2 spray INTRANASAL Q12H PRN 08/09/20 sodium chloride 0.65 % nasal spray aerosol 2 spray INTRANASAL Q2H PRN 08/09/20 standard wheelchair #1 ea 08/11/20 standard wheelchair 1 ea OTHER DAILY #1 device 08/11/20 blood pressure test kit-large #1 ea 08/16/20 furosemide 20 mg tablet 20 mg PO DIRECTED #90 tab 08/16/20 verapamil 120 mg tablet 120 mg PO DAILY #30 tab 08/16/20 citalopram 10 mg tablet 10 mg PO DAILY #30 tab 08/17/20 Boostrix Tdap 2.5 Lf unit-8 mcg-5 Lf/0.5 mL intramuscular syringe 0.5 ml IM ONCE #1 ml NS 08/24/20 albuterol sulfate 2.5 mg INHALATION Q6H #180 ml 08/24/20 pantoprazole 40 mg tablet,delayed release 40 mg PO DAILY #30 tab 08/24/20 spironolactone 25 mg tablet 25 mg PO DAILY #30 tab 08/25/20 fluticasone propionate 230 mcg-salmeterol 21 mcg/actuation HFA inhaler 2 puff INHALATION BID #12 g 08/28/20 metoprolol tartrate 50 mg PO BID #60 tab 09/09/20 Hospital Course Operations - (incision and drainage and evacuation of hematoma) Procedures None Summary of Care Provided Minutes Spent on Discharge: 45 Hospital Course: PAPI RANDHAWA, is a 80 F with an extensive PMH as outlined who was admitted via the ED with a complaint of mechanical fall and swelling of her upper thigh. She is on eliquis for unclear reason. She fell a few days ago and landed on her right side.She noted that the area had been getting more swollen and painful. Hematoma tracks up to her hip. She denied any lightheadedness, dizziness, nausea or vomiting. Review of systems was otherwise negative. Vitals wre stable, and Hb is 9.3, which is around her baseline of ~ 10. CT of the abdomen adn pelvis showed right posterior lateral thigh stranding and hyperdense collection likely representing hematoma and soft tissue injury and showed a right lower lobe mass with 7 previously biopsied as well as a 2.4 cm isodense possibly solid lesion of the right mid kidney with renal ultrasound recommended. She was admitted to be managed for hematoma right thigh due to mechanical fall as well as being on anticoagulation. Hematoma gradually got bigger hemoglobin also dropped to 7.5. Plastic surgery was therefore consulted and patient had incision and drainage with evacuation of the hematoma on 09/07/2020. Postop course was complicated by further drop in hemoglobin to 7.1. She was therefore transfused with 2 units of packed red blood cells. Hemoglobin subsequently trended up to 11 and then around 10. Patient remained stable and she had a wound VAC applied on 09/09/2020. She remained stable and was discharged to her long-term on 09/10/2019 with a wound VAC in place. White cell count had trended up slightly to 11.4. Wound cultures showed no growth and Gram stain showed 2+ white blood cells and 4+ red blood cells with no organisms seen. She was discharged to follow up with wound care, plastic surgery and her PCP. She is also to follow-up with oncology on account of recently diagnosed lung cancer and is to have PET scan and MRI of the brain on outpatient basis as scheduled.Of note, patient's eliquis was discontinued for now in light of the significant hematoma that required evacuation. I will defer to her PCP to determine when she can restart it, as she is not yet established with a fast food services manager here with regards to her afib. Patient counseled to establish care as soon as possible with a fast food services manager. Patient and son counseled about the increased risk of stroke whilst she is off eliquis, though she has been in sinus rhythm since admission. Patient seen and examined prior to discharge. She felt well and had no complaints. Review of systems otherwise negative. Labs and vitals reviewed. Home medication reviewed and reconciled. Physical Exam Const alert, oriented x3 and no apparent distress General Appearance: cooperative and comfortable Exam Limitations: no limitations HEENT normocephalic, head/scalp atraumatic, hearing grossly normal bilaterally and moist oral mucous membranes Eyes PERRL, EOMs intact bilaterally and conjunctivae normal Neck no lymphadenopathy and supple Resp normal respiratory effort, no retractions and no use of accessory muscles Cardio regular rate, regular rhythm, S1 normal heart sound, S2 normal heart sound and no murmurs GI normal to inspection, nondistended, normoactive bowel sounds, soft to palpation, non-tender and non-distended Extremity normal to inspection Extremity Narrative: dressing over left lateral thigh at site of surgery. Skin no rashes or lesions noted Skin Narrative: bruising over right hip due t mechanical fall. Neuro oriented x3 Sensorium / Orientation: awake and alert Psych affect normal Mood & Affect: depressed Weight / BMI Weight Weight: 168 lb 6.931 oz Body Mass Index (BMI) 27.1 ABG / Lab / Microbiology Data Result Diagrams: 09/09/20 05:43 09/09/20 05:43 Laboratory: Laboratory Results - last 24 hr 09/08/20 09/08/20 09/09/20 17:21 21:44 05:43 WBC 11.4 H RBC 3.44 L Hgb 10.7 L Hct 31.8 L MCV 92.4 D MCH 31.1 MCHC 33.6 D RDW Std Deviation 44.0 H RDW Coeff of Arik 13.2 Plt Count 336 MPV 9.1 Immature Gran % (Auto) 0.700 Neut % (Auto) 61.7 Lymph % (Auto) 15.4 L [place] % (Auto) 14.1 H Eos % (Auto) 7.7 H Baso % (Auto) 0.4 Absolute Neuts (auto) 7.0 Absolute Lymphs (auto) 1.75 Nucleated RBC % 0 [address] Review May foll Sodium Potassium Chloride Carbon Dioxide Anion Gap BUN Creatinine Estim Creat Clear Calc Est GFR (MDRD) Af Amer Est GFR (MDRD) Non-Af BUN/Creatinine Ratio Glucose Calcium POC Glucose 221 H 358 H 09/09/20 09/09/20 05:43 06:29 WBC RBC Hgb Hct MCV MCH MCHC RDW Std Deviation RDW Coeff of Arik Plt Count MPV Immature Gran % (Auto) Neut % (Auto) Lymph % (Auto) [place] % (Auto) Eos % (Auto) Baso % (Auto) Absolute Neuts (auto) Absolute Lymphs (auto) Nucleated RBC % Diff Path Review Sodium 137 Potassium 4.1 Chloride 101 Carbon Dioxide 32.0 Anion Gap 4 L BUN 41 H Creatinine 1.40 H Estim Creat Clear Calc 30.50 Est GFR (MDRD) Af Amer 47 L Est GFR (MDRD) Non-Af 39 L BUN/Creatinine Ratio 29.3 H Glucose 173 H Calcium 8.9 POC Glucose 206 H Microbiology: Microbiology 09/07/20 11:39 Gram Stain - Final Tissue - Leg, Right Wound Culture - Preliminary No growth-Final to follow Microbiology 09/07/20 11:39 Tissue - Leg, Right Gram Stain - Final 09/07/20 11:39 Tissue - Leg, Right Wound Culture - Preliminary No growth-Final to follow 09/05/20 11:00 Mucosa - Nose SARS-CoV-2 Antigen (Rapid) - Final D/C Instructions Discharge Diet: 2000 mg Sodium Diet Discharge Activity: Return to Normal Activity Weight Bearing Status: Weight bearing as tolerated Call your doctor if you observe: Fever of 101 or Higher, Shortness of breath, Dizziness and Uncontrolled pain Additional Dressing/Incision Instructions: wound vac in place Please Follow Up With: MRI Brain Meaningful Use Info Meaningful Use Diagnoses (Choose all that apply): None applicable Discharge Plan Admission Admit Date/Time: 09/07/20 10:31 Primary Reason for Your Visit: traumatic left thigh hematoma Attending Provider: Meaghan Campa Primary Care Provider: Lizy Correa NP Consulting Providers: Cheng Matute Instructions Patient Instructions: Anemia, ED Mechanical Fall Discharge Orders/Prescriptions Prescriptions: New metoprolol tartrate 50 mg Tablet 50 mg PO BID Qty: 60 RF: 1 Continued losartan 100 mg tablet 100 mg PO DAILY RF: 0 metformin 1,000 mg tablet 1,000 mg PO BID RF: 0 Lantus Solostar U-100 Insulin 100 unit/mL (3 mL) insulin pen 12 unit subcut QHS RF: 0 atorvastatin 40 mg tablet 40 mg PO QHS RF: 0 ixojooivlpre-osjjeytr-hkocaz Tablet 1 tab PO DAILY RF: 0 omega-3 fatty acids [Fish Oil Concentrate] 1,000 mg capsule 1,000 mg PO DAILY RF: 0 acetaminophen 325 mg capsule 650 mg PO Q6H PRN (Reason: Pain) RF: 0 alum-mag hydroxide-simeth 400-400-40 mg/5 mL suspension 10 ml PO DAILY PRN (Reason: Diarrhea) RF: 0 sodium chloride [Saline Mist] 0.65 % aerosol,spray 2 spray intranasal Q2H PRN (Reason: nasal moisture) RF: 0 hydrocortisone [Cortizone-10] 1 % cream 1 applic topical TID PRN (Reason: Itching) RF: 0 loperamide-simethicone 2-125 mg tablet 1 tab PO DAILY PRN (Reason: Diarrhea) RF: 0 Mucinex 1,200 mg tablet extended release 12hr 1,200 mg PO Q12H PRN (Reason: Congestion) RF: 0 albuterol sulfate 90 mcg/actuation HFA aerosol inhaler 1 puff inhalation Q4H PRN (Reason: shortness of breath or wheezing) RF: 0 magnesium oxide 400 mg magnesium capsule 400 mg PO DAILY RF: 0 cholecalciferol (vitamin D3) 25 mcg (1,000 unit) capsule 25 mcg PO DAILY RF: 0 oxymetazoline [Vicks Sinex 12-Hour] 0.05 % spray,non-aerosol 2 spray intranasal Q12H PRN (Reason: nasal moisture) RF: 0 ferrous sulfate 325 mg (65 mg iron) capsule, extended release 325 mg PO DAILY RF: 0 standard wheelchair 1 ea OTHER DAILY Qty: 1 RF: 0 (DME) standard wheelchair See Rx Instructions .Route .MEDSUPPLY Qty: 1 RF: 0 (DME) blood pressure test kit-large Kit See Rx Instructions .ROUTE .MEDSUPPLY Qty: 1 RF: 0 verapamil 120 mg tablet 120 mg PO DAILY Qty: 30 RF: 0 citalopram 10 mg tablet 10 mg PO DAILY Qty: 30 RF: 0 furosemide 20 mg tablet 20 mg PO DIRECTED Qty: 90 RF: 3 Boostrix Tdap 2.5-8-5 Lf-mcg-Lf/0.5mL syringe 0.5 ml IM ONCE Qty: 1 RF: 0 pantoprazole 40 mg tablet,delayed release (DR/EC) 40 mg PO DAILY Qty: 30 RF: 3 albuterol sulfate 2.5 mg /3 mL (0.083 %) solution for nebulization 2.5 mg inhalation Q6H Qty: 180 RF: 3 spironolactone 25 mg tablet 25 mg PO DAILY Qty: 30 RF: 3 Advair HFA 230-21 mcg/actuation HFA aerosol inhaler 2 puff inhalation BID Qty: 12 RF: 3 Discontinued Eliquis 5 mg tablet 5 mg PO BID RF: 0 metoprolol tartrate 100 mg Tablet 100 mg PO BID RF: 0 Referrals / Follow Up: [facility]- [facility] [Other] - 09/19/20 11:30 am Lizy Correa NP, SKIN DIVER-C [Primary Care Provider] - Disposition Disposition (needs filled in before D/C Order can be placed): Shelter Facility Charges/Coding Visit Charges Inpatient E&M: [id number] Disch Hosp
[2020-09-09 12:35] LABS: Bedside Glucose 260 mg/dL (70-110)
--- NOTE | 2020-09-09 13:04 | PCM.TXEXTCAR ---
Diet 09/08/20 10:07 Diet: Cardiac: Calorie-Controlled Type of Dietary Supplement:: Is pt able to select menu?: No Diet Comments: 1600 calorie, cardiac How many daily calories?: 1600 calorie Wound(s) right thigh: Wound Type: Surgical Incision Problem/Diagnosis (1) Fall as cause of accidental injury at home as place of occurrence: Status: Acute Comment: traumatic hematoma right lateral thigh (2) Acute postoperative anemia due to expected blood loss: Status: Acute (3) Traumatic hematoma of right thigh: Status: Acute Comment: right lateral thigh (4) Type 2 diabetes mellitus: Status: Acute (5) Current use of half-way anticoagulation: Status: Chronic Allergies/Procedures Done in Hospital Allergies morphine Allergy (Verified 09/07/20 13:46) Itching PATIENT STATES SHE IS ALLERGIC. THIS WAS NOT RELAYED IN ORIGINAL HISTORY. Penicillins Allergy (Verified 09/05/20 09:38) PT UNSURE OF REACTION Type of Care/Length of Stay Estimated LOS: Convalescent Care Less Than 30 days Type of Care Needed: Skilled Rehab Potential: Fair Prognosis: Fair Additional Orders/Day of Discharge Day of Discharge: 09/09/20 Dietary and Speech Recommendations Dietitian Recommendations/Changes: Will d/c glucerna shake due to pt refusal Will order Kali bid mixed w/ cranberry juice for wound healing Will change diet to 1600 [address] Cardiac Follow Up Care Please Follow Up With: MRI Brain Discharge Plan Admission Admit Date/Time: 09/07/20 10:31 Primary Reason for Your Visit: traumatic left thigh hematoma Attending Provider: Meaghan Campa Primary Care Provider: Lizy Correa NP Consulting Providers: Cheng Matute Instructions Patient Instructions: Anemia, ED Mechanical Fall Discharge Orders/Prescriptions Prescriptions: New metoprolol tartrate 50 mg Tablet 50 mg PO BID Qty: 60 RF: 1 clindamycin HCl 300 mg capsule 300 mg PO Q6H 7 Days Qty: 28 RF: 0 Continued losartan 100 mg tablet 100 mg PO DAILY RF: 0 metformin 1,000 mg tablet 1,000 mg PO BID RF: 0 Lantus Solostar U-100 Insulin 100 unit/mL (3 mL) insulin pen 12 unit subcut QHS RF: 0 atorvastatin 40 mg tablet 40 mg PO QHS RF: 0 tkickvvfwkwt-iwuewlqa-ebohbq Tablet 1 tab PO DAILY RF: 0 omega-3 fatty acids [Fish Oil Concentrate] 1,000 mg capsule 1,000 mg PO DAILY RF: 0 acetaminophen 325 mg capsule 650 mg PO Q6H PRN (Reason: Pain) RF: 0 alum-mag hydroxide-simeth 400-400-40 mg/5 mL suspension 10 ml PO DAILY PRN (Reason: Diarrhea) RF: 0 sodium chloride [Saline Mist] 0.65 % aerosol,spray 2 spray intranasal Q2H PRN (Reason: nasal moisture) RF: 0 hydrocortisone [Cortizone-10] 1 % cream 1 applic topical TID PRN (Reason: Itching) RF: 0 loperamide-simethicone 2-125 mg tablet 1 tab PO DAILY PRN (Reason: Diarrhea) RF: 0 Mucinex 1,200 mg tablet extended release 12hr 1,200 mg PO Q12H PRN (Reason: Congestion) RF: 0 albuterol sulfate 90 mcg/actuation HFA aerosol inhaler 1 puff inhalation Q4H PRN (Reason: shortness of breath or wheezing) RF: 0 magnesium oxide 400 mg magnesium capsule 400 mg PO DAILY RF: 0 cholecalciferol (vitamin D3) 25 mcg (1,000 unit) capsule 25 mcg PO DAILY RF: 0 oxymetazoline [Vicks Sinex 12-Hour] 0.05 % spray,non-aerosol 2 spray intranasal Q12H PRN (Reason: nasal moisture) RF: 0 ferrous sulfate 325 mg (65 mg iron) capsule, extended release 325 mg PO DAILY RF: 0 standard wheelchair 1 ea OTHER DAILY Qty: 1 RF: 0 (DME) standard wheelchair See Rx Instructions .Route .MEDSUPPLY Qty: 1 RF: 0 (DME) blood pressure test kit-large Kit See Rx Instructions .ROUTE .MEDSUPPLY Qty: 1 RF: 0 verapamil 120 mg tablet 120 mg PO DAILY Qty: 30 RF: 0 citalopram 10 mg tablet 10 mg PO DAILY Qty: 30 RF: 0 furosemide 20 mg tablet 20 mg PO DIRECTED Qty: 90 RF: 3 Boostrix Tdap 2.5-8-5 Lf-mcg-Lf/0.5mL syringe 0.5 ml IM ONCE Qty: 1 RF: 0 pantoprazole 40 mg tablet,delayed release (DR/EC) 40 mg PO DAILY Qty: 30 RF: 3 albuterol sulfate 2.5 mg /3 mL (0.083 %) solution for nebulization 2.5 mg inhalation Q6H Qty: 180 RF: 3 spironolactone 25 mg tablet 25 mg PO DAILY Qty: 30 RF: 3 Advair HFA 230-21 mcg/actuation HFA aerosol inhaler 2 puff inhalation BID Qty: 12 RF: 3 Discontinued Eliquis 5 mg tablet 5 mg PO BID RF: 0 metoprolol tartrate 100 mg Tablet 100 mg PO BID RF: 0 Referrals / Follow Up: [facility] [Other] - 09/19/20 11:30 am Lizy Correa NP, MEDICAL RESIDENT-C [Primary Care Provider] - Disposition Disposition (needs filled in before D/C Order can be placed): Care Home Facility
[2020-09-09] MEDS: DiphenhydrAMINE 25 MG Capsule PO (13:05)
[2020-09-09] MEDS: Ketorolac 15 MG/ML Vial IV (13:05)
--- NOTE | 2020-09-09 15:57 | NURSING ---
Report given to Ember SMITH at [facility].
--- NOTE | 2020-09-09 17:45 | CASEMGMT ---
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 ALANA called Isabell at [facility] and she indicated patient could return either date, Friday or Friday.
[2020-09-11 12:40] LABS: Pathologist Review Reviewed
== END 2020-09-09 15:30 | disposition skilled nursing facility (03) | DRG 576 ==
LOC: ED 12:35 → MS3 12:43
PROVIDERS: Anesthesiology; Surgery; Admitting Provider Student in an Organized Health Care Education/Training Program; Emergency Provider Emergency Medicine; PCP Nurse Practitioner Adult Health; Visit Provider Student in an Organized Health Care Education/Training Program
PROC: 0YBC0ZZ Excision of Right Upper Leg, Open Approach (ICD-10-PCS; principal; 2020-09-07 10:40)
DX: S70.11XA Contusion of right thigh, initial encounter (principal); I50.43 Acute on chronic combined systolic (congestive) and diastolic (congestive) heart failure; J96.11 Chronic respiratory failure with hypoxia; D62 Acute posthemorrhagic anemia; C34.90 Malignant neoplasm of unspecified part of unspecified bronchus or lung; S71.101A Unspecified open wound, right thigh, initial encounter; E11.36 Type 2 diabetes mellitus with diabetic cataract; I48.0 Paroxysmal atrial fibrillation; R29.6 Repeated falls; E78.5 Hyperlipidemia, unspecified; I11.0 Hypertensive heart disease with heart failure; W18.30XA Fall on same level, unspecified, initial encounter; Z87.891 Personal history of nicotine dependence; Z79.01 Long term (current) use of anticoagulants; Z79.4 Long term (current) use of insulin; Z79.899 Other long term (current) drug therapy; Y92.009 Unspecified place in unspecified non-institutional (private) residence as the place of occurrence of the external cause; J45.909 Unspecified asthma, uncomplicated; F32.9 Major depressive disorder, single episode, unspecified; Z99.81 Dependence on supplemental oxygen; K57.90 Diverticulosis of intestine, part unspecified, without perforation or abscess without bleeding; Z83.3 Family history of diabetes mellitus; Z88.0 Allergy status to penicillin; Z88.5 Allergy status to narcotic agent
CPT/HCPCS: 36415; 71045; 72170; 73552; 74176; 80048; 80053; 81001; 82550; 82962; 83690; 83880; 84134; 84484; 85014; 85018; 85025; 85027; 85610; 85730; 86850; 86900; 86901; 86920; 86922; 87070; 87075; 87102; 87176; 87205; 87206; 87426; 88305; 93005; 94640; 97110; 97162; 97166; 97530; 97535; 99251; 99284; J7030; J7040; J7050; J7120; P9016; A4216; G0463; J1940; J2405

== ENCOUNTER → 2020-09-19 11:10 | Outpatient (CLI) | payer MEDICARE, BC, SELFPAY ==
[2020-08-29 14:36] VITALS: BMI 26.9
[2020-09-07 07:50] VITALS: BMI 27.1
--- NOTE | 2020-09-19 11:14 | MRI_ITS ---
STUDY: MRI BRAIN WITH AND WITHOUT CONTRAST REASON FOR EXAM: Female, 80 years old. New dx of NSCLC TECHNIQUE: Standardized multiplanar fat and water weighted pulse sequences were obtained. IV DOTAREM 18 CC was administered for the contrast portion of the examination. COMPARISON: None. FINDINGS: Quality: Adequate. Multiple sequences are degraded by patient motion. No intracranial mass, mass effect or midline shift. No obvious hemorrhage. No territorial infarct or acute ischemia. There is moderate cerebral atrophy with widening of the extra-axial spaces and ventricular dilatation. There are a limited number of small white matter hyperintensities, distributed throughout the deep white matter tracts of the cerebral hemispheres, consistent with mild chronic white matter ischemic changes. Normal bilateral basal ganglia. Normal thalami. There is no extra-axial fluid accumulation. Normal flow voids within the major intracranial circulation suggesting patency by spin echo criteria. There is no enhancing intra-axial or extra-axial abnormality. Normal sella turcica, pituitary gland, infundibular stalk, optic chiasm and hypothalamus. Normal midbrain, teddy and medulla. Normal cerebellum. Normal basal cisterns. Normal bilateral temporal bones. Normal bilateral internal auditory canals. Mucosal thickening in the left sphenoid sinus. Paranasal sinuses are otherwise clear. Normal calvarium and skull base. Normal visualized soft tissue structures. MRI/Brain W/WO Contrast IMPRESSION: 1. No acute findings. 2. Mild microvascular ischemic changes. Atrophy. Electronically Signed: Janice Beard MD at 19:33 EDT Tel , Service support ,
== END ==
PROVIDERS: PCP Nurse Practitioner Adult Health; Referring Provider Internal Medicine Critical Care Medicine; Visit Provider Internal Medicine Critical Care Medicine
DX: C34.91 Malignant neoplasm of unspecified part of right bronchus or lung (principal)
CPT/HCPCS: 70553; A9575

== ENCOUNTER → 2020-09-19 16:29 | Outpatient (CLI) | payer MEDICARE, BC, SELFPAY ==
[2020-08-29 14:36] VITALS: BMI 26.9
[2020-09-07 07:50] VITALS: BMI 27.1
--- NOTE | 2020-09-26 18:00 | PET_ITS ---
EXAMINATION: FDG PET-CT INDICATIONS: A 80-year-old female with reported history of carcinoma of the lung presenting for initial staging examination. COMPARISON EXAMINATION: CT of the chest dated 08/16/20 TECHNIQUE: Following the intravenous administration of 14.28 mCi of F-18 deoxyglucose via the right wrist, multiplanar image acquisitions of the neck, chest, abdomen and pelvis to level of mid thigh, obtained at one hour post radiopharmaceutical administration contemporaneously interpreted with the current CT of the neck, chest, abdomen and pelvis, to level of mid thigh, dated 09/26/[address] of the chest dated 08/16/20 reveals: BLOOD GLUCOSE LEVEL:?? 83 mg/dl?HEIGHT:?66 inches?WEIGHT: 165 lbs. FINDINGS: 1. An increase in FDG concentration is observed in the right lower posterior lung-basilar segment of the right lower lobe. The calculated maximal standard uptake value is 4.1. The maximal axial diameter of the corresponding parenchymal density on review of CT of the chest dated 09/26/20 is 5.6-cm (transverse). 2. Normal physiologic distribution of the radiopharmaceutical is apparent in the hepatic (0.9) and splenic parenchyma, both renal units, bladder and visualized intestinal tract. The visualized portion of the cerebral cortical-subcortical structures demonstrate symmetric and preserved glucose metabolism. Prominent radiopharmaceutical concentration is observed in the left ventricular myocardium, as well as visualization of diffuse skeletal muscle tracer uptake most consistent with the [place]. Pertinent CT findings are as follows: CHEST: There is atherosclerotic calcification defined in the thoracic aorta without evidence of dilatation-aneurysm formation. Bilateral axillary soft tissue densities with fatty hilus are non-glucose avid. Mediastinal soft tissue demonstrates no evidence of increased tracer uptake. There are no additional parenchymal densities-nodules noted in the right and left hemithorax with discernible increased FDG concentration. ABDOMEN AND PELVIS: Colonic diverticulosis is encountered without evidence of diverticulitis. Calcifications are noted in the lower pelvis associated with the uterus without evidence of increased tracer uptake. There is atherosclerotic calcification defined in the abdominal aorta without evidence of dilatation-aneurysm formation. Pelvic arterial calcification is observed. SKELETAL: Degenerative changes are noted in the cervical, thoracic and lumbar spine without evidence of increased radiopharmaceutical concentration. A compression deformity is noted at the level of the twelfth thoracic vertebra without evidence of quantitatively significant increased FDG uptake. PET/PET/CT Tumor Base -Thigh Init IMPRESSION: 1. Increased FDG uptake observed in the right lower posterior lung-right lower lobe fulfills quantitative criteria for viable neoplasm, histopathologic analysis is recommended. (Fei et al, Annals of Internal Medicine, 138:724, 2003). 2. Prominent radiopharmaceutical concentration noted in the left ventricular myocardium and skeletal musculature is commensurate with the pattern associated with failure to fast. (Elayne and Suze, Journal of Nuclear Medicine Technology 31:3, 2003). Electronic Signature Reid Evans D.O. Accurate Quantification of SUVs for this report are calculated using the exclusive [employer]? Technology.??Exclusive [place]. Patent [employer]uquan? Technology (U.S. Patent No. [id number] [id number]). Standardization and correction of the FDG SUV metric allow for vendor non-specific objective quantitative comparison and otherwise unobtainable optimization of the sensitivity and specificity of the examination. Electronically Signed: Reid Evans DO at 11:48 EDT Tel , Service support ,
== END ==
PROVIDERS: PCP Nurse Practitioner Adult Health; Referring Provider Internal Medicine Critical Care Medicine; Visit Provider Internal Medicine Critical Care Medicine
DX: C34.31 Malignant neoplasm of lower lobe, right bronchus or lung (principal)
CPT/HCPCS: 70553; 78815; A9552; A9575

== ENCOUNTER → 2020-10-02 05:00 | Outpatient (REF) | payer MEDICARE, BC, SELFPAY ==
[2020-09-07 07:50] VITALS: BMI 27.1
[2020-10-02 08:41] LABS: Anion Gap 5 (5-15); BUN 46 mg/dL (7-18); BUN/Creat Ratio 43.4 RATIO (10-20); Calcium,Total 8.2 mg/dL (8.5-10.1); Chloride 107 mmol/L (98-107); Creatinine, Serum 1.06 mg/dL (0.55-1.02); EST Glomerular Filtration Rate 53 mL/min (>60); Est Glom Filt Rate - Afr Amer 64 mL/min (>60); Glucose 68 mg/dL (74-106); Sodium Level 138 mmol/L (136-145)
[2020-10-02 08:47] LABS: Hematocrit 27.6 % (37-47); Hemoglobin 8.9 g/dL (12.0-15.0); Mean Corp Hgb Conc 32.2 g/dL (32-36); Mean Corpuscular Hgb 30.5 pg (27.0-32.0); Mean Corpuscular Volume 94.5 fL (81-99); Mean Platelet Vol. 9.7 fl (6.2-12.0); Platelet Count 317 K/mm3 (150-450); RBC Distribution Width CV 12.3 % (11.6-14.6); RBC Distribution Width SD 42.9 fl (35.1-43.9); Red Blood Count 2.92 M/mm3 (4.2-5.4); White Blood Count 9.8 K/mm3 (4.4-11.0)
[2020-10-16 11:16] VITALS: BMI 26.6
== END ==
LOC: OLS.WHLTCC 05:00
PROVIDERS: PCP Internal Medicine; Referring Provider Family Medicine; Visit Provider Family Medicine
DX: I10 Essential (primary) hypertension (principal); C34.91 Malignant neoplasm of unspecified part of right bronchus or lung; E11.9 Type 2 diabetes mellitus without complications; E78.5 Hyperlipidemia, unspecified; F41.9 Anxiety disorder, unspecified; J45.909 Unspecified asthma, uncomplicated
CPT/HCPCS: 36415; 80048; 85027

== ENCOUNTER → 2020-10-09 04:00 | Outpatient (REF) | payer MEDICARE, SELFPAY ==
[2020-10-06 14:17] VITALS: BMI 27.6
[2020-10-09 07:55] LABS: Hematocrit 27.1 % (37-47); Hemoglobin 8.7 g/dL (12.0-15.0); Mean Corp Hgb Conc 32.1 g/dL (32-36); Mean Corpuscular Hgb 30.4 pg (27.0-32.0); Mean Corpuscular Volume 94.8 fL (81-99); Mean Platelet Vol. 9.8 fl (6.2-12.0); Platelet Count 280 K/mm3 (150-450); RBC Distribution Width CV 12.5 % (11.6-14.6); RBC Distribution Width SD 43.5 fl (35.1-43.9); Red Blood Count 2.86 M/mm3 (4.2-5.4); White Blood Count 10.5 K/mm3 (4.4-11.0)
[2020-10-09 08:03] LABS: Anion Gap 5 (5-15); BUN 43 mg/dL (7-18); BUN/Creat Ratio 39.8 RATIO (10-20); Calcium,Total 8.3 mg/dL (8.5-10.1); Chloride 109 mmol/L (98-107); Creatinine, Serum 1.08 mg/dL (0.55-1.02); EST Glomerular Filtration Rate 52 mL/min (>60); Est Glom Filt Rate - Afr Amer 63 mL/min (>60); Glucose 165 mg/dL (74-106); Potassium 4.3 mmol/L (3.5-5.1); Sodium Level 140 mmol/L (136-145)
[2020-10-16 11:16] VITALS: BMI 26.6
== END ==
LOC: OLS.WHLTCC 04:00
PROVIDERS: PCP Internal Medicine; Referring Provider Family Medicine; Visit Provider Family Medicine
DX: I10 Essential (primary) hypertension (principal); C34.91 Malignant neoplasm of unspecified part of right bronchus or lung; S70.11XD Contusion of right thigh, subsequent encounter; D62 Acute posthemorrhagic anemia; E86.0 Dehydration; W19.XXXD Unspecified fall, subsequent encounter
CPT/HCPCS: 36415; 80048; 85027

== ENCOUNTER 2020-10-09 08:36 | Outpatient (RCR) | payer MEDICARE, SELFPAY ==
[2020-09-07 07:50] VITALS: BMI 27.1
[2020-10-06 14:17] VITALS: BMI 27.6
[2020-10-09 09:16] VITALS: BP 138/68; PULSE 61; RESP 16; TEMP 36.7; BMI 26.3
--- NOTE | 2020-10-09 12:59 | HP.PCM_ITS ---
History of Present Illness Date of Service: 10/09/20 Chief Complaint: Right lateral thigh wound after evacuation from a traumatic hematoma on 09/07/20 History of Wound: 80 F with a history of diabetes mellitus was admitted after a fall at home that resulted in a hematoma right lateral thigh. Patient is on Eliquis that is thought from previous atrial fibrillation. She fell a few days ago and landed on her right side. She became concerned because the hematoma was getting more painful and swollen. CT of the abdomen and pelvis showed right posterior lateral thigh stranding and hyperdense collection likely representing hematoma and soft tissue injury and showed a right lower lobe mass with 7 previously biopsied as well as a 2.4 cm isodense possibly solid lesion of the right mid kidney with renal ultrasound recommended. Since her fall she has been diagnosed with Stage IIB non-small cell lung cancer of right lower lobe, adenocarcinoma histology. She has been referred for radiation for this lung mass. She also has a history of anemia, she is on oral iron supplements, being follow by hematology/oncology for this also. Surgery 09/07/20 - Surgical preparation right lateral thigh with incision and drainage and excisional debridement and evacuation traumatic infected hematoma (90 cm2). Wound care - Wound VAC to 150 mmHg. VAC dressing changes 3 times per week. She is at [facility] where they manage the wound VAC dressings. She denies any fever. She states that her appetite is fair. Progress of Wound: Stable. 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 Hemoglobin A1c greater than 9.0% High cholesterol History of stress test History of tobacco abuse Hoarseness Hyperlipidemia Hypertension Injury of omentum Muscle weakness (generalized) On home oxygen therapy Open wound of right thigh Paroxysmal atrial fibrillation Post-menopausal Recurrent falls Restless legs Seasonal allergic reaction Traumatic hematoma of right thigh Type 2 diabetes mellitus Type II diabetes mellitus Type II diabetes mellitus with manifestations Visual impairment Home Medications acetaminophen 325 mg capsule 650 mg PO Q6H PRN cap 08/09/20 [History Last Taken Unknown] albuterol sulfate 90 mcg/actuation aerosol inhaler 1 puff INHALATION Q4H PRN g 08/09/20 [History Last Taken Unknown] aluminum-mag hydroxide-simethicone 400 mg-400 mg-40 mg/5 mL oral susp 10 ml PO DAILY PRN ml 08/09/20 [History Last Taken Unknown] atorvastatin 40 mg tablet 40 mg PO QHS 08/09/20 [History Last Taken Unknown] cholecalciferol (vitamin D3) 25 mcg (1,000 unit) capsule 25 mcg PO DAILY 08/09/20 [History Last Taken Unknown] ferrous sulfate 325 mg (65 mg iron) capsule,extended release 325 mg PO DAILY cap 08/09/20 [History Last Taken Unknown] guaifenesin 1,200 mg tablet, extended release 12 hr 1,200 mg PO Q12H PRN 08/09/20 [History Last Taken Unknown] hydrocortisone 1 % topical cream 1 applic TOPICAL TID PRN 08/09/20 [History Last Taken Unknown] insulin glargine 100 unit/mL (3 mL) subcutaneous pen 12 unit SUBCUT QHS ml 08/09/20 [History Last Taken Unknown] loperamide-simethicone 2 mg-125 mg tablet 1 tab PO DAILY PRN tab 08/09/20 [History Last Taken Unknown] losartan 100 mg tablet 100 mg PO DAILY 08/09/20 [History Last Taken Unknown] magnesium oxide 400 mg PO DAILY 08/09/20 [History Last Taken Unknown] metformin 1,000 mg tablet 1,000 mg PO BID 08/09/20 [History Last Taken Unknown] wmpjynqtibtx-lhbsbdri-bnsjby tablet 1 tab PO DAILY 08/09/20 [History Last Taken Unknown] omega-3 fatty acids 1,000 mg capsule 1,000 mg PO DAILY 08/09/20 [History Last Taken Unknown] oxymetazoline 0.05 % nasal spray 2 spray INTRANASAL Q12H PRN 08/09/20 [History Last Taken Unknown] sodium chloride 0.65 % nasal spray aerosol 2 spray INTRANASAL Q2H PRN 08/09/20 [History Last Taken Unknown] standard wheelchair #1 ea 08/11/20 [Rx Last Taken Unknown] standard wheelchair 1 ea OTHER DAILY #1 device 08/11/20 [Rx Last Taken Unknown] blood pressure test kit-large #1 ea 08/16/20 [Rx Last Taken Unknown] furosemide 20 mg tablet 20 mg PO DIRECTED #90 tab 08/16/20 [Rx Last Taken Unknown] verapamil 120 mg tablet 120 mg PO DAILY #30 tab 08/16/20 [Rx Last Taken Unknown] citalopram 10 mg tablet 10 mg PO DAILY #30 tab 08/17/20 [Rx Last Taken Unknown] Boostrix Tdap 2.5 Lf unit-8 mcg-5 Lf/0.5 mL intramuscular syringe 0.5 ml IM ONCE #1 ml NS 08/24/20 [Clinic Last Taken Unknown] albuterol sulfate 2.5 mg INHALATION Q6H #180 ml 08/24/20 [Rx Last Taken Unknown] pantoprazole 40 mg tablet,delayed release 40 mg PO DAILY #30 tab 08/24/20 [Rx Last Taken Unknown] spironolactone 25 mg tablet 25 mg PO DAILY #30 tab 08/25/20 [Rx Last Taken Unknown] fluticasone propionate 230 mcg-salmeterol 21 mcg/actuation HFA inhaler 2 puff INHALATION BID #12 g 08/28/20 [Rx Last Taken Unknown] clindamycin HCl 300 mg PO Q6H 7 Days #28 cap 09/09/20 [Rx Last Taken Unknown] metoprolol tartrate 50 mg PO BID #60 tab 09/09/20 [Rx Last Taken Unknown] Allergy/AdvReac Type Severity Reaction Status Date / Time morphine AdvReac Severe Itching Verified 10/10/20 10:36 Penicillins AdvReac PT UNSURE Verified 10/10/20 10:36 OF REACTION Family History Mother Diabetes Heart disease Brother Cancer Prostate cancer Surgical History History of Social History household members: none housing: apartment number of children: 3 current occupational status: retired current occupational exposures/hazards: No pets and animals: No history of recent travel: Yes (From [place]) details: Moved to [facility] to be closer to [facility] out of state: Yes out of country: No Smoking Status: Former smoker quit date: 07/24/76 pack-years: 4 Tobacco: How many years used: 7 second hand exposure: No alcohol intake: current details: 1 glass wine 4 times a year. Social drinker. 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/confucianism: Spiritism seatbelt use: always do you feel safe at home: Yes ROS Constitutional Constitutional: Reports anorexia, frequent falls and weight loss ENT HEENT: Reports none Cardiovascular Cardiovascular: Reports dyspnea on exertion; Denies chest pain, dizziness or edema Respiratory/Chest Respiratory/Chest: Reports portable oxygen @ home and shortness of breath with exertion; Denies change in mental status Gastrointestinal Gastrointestinal: Denies abdominal pain Musculoskeletal Musculoskeletal: Reports as per HPI Integumentary Integumentary: Reports wounds Psychiatric Psychiatric: Reports none Hematologic/Lymphatic Hematologic/Lymphatic: Reports as per HPI and anemia Vital Signs Vital Signs Vital Signs: 10/09/20 09:16 Temperature 98.1 F Temperature Source Temporal Pulse Rate 61 Respiratory Rate 16 Blood Pressure 138/68 H Blood Pressure Mean 91 Blood Pressure Source Monitor Blood Pressure Position Sitting Blood Pressure Location Right Arm Oxygen Delivery Method Room Air Weight Weight: 163 lb Body Mass Index (BMI) 26.3 Physical Exam Const alert, oriented x3 and no apparent distress General Appearance: cooperative HEENT normocephalic Eyes PERRL Lymph Lymphatic: no lymphedema noted Resp normal air movement Resp Narrative: Wearing nasal canula. Effort and Inspection: able to speak in complete sentences Cardio regular rate GI soft to palpation and non-tender Extremity normal capillary refill Skin Wound Narrative: Right lateral thigh wound is pink, into the muscle. Granulation tissue is present. Neuro oriented x3 and CN's II-XII intact bilaterally Debridement Note Debridement Note Post-Debridement Measurements and Additional Note: Post-Debridement Measurements/Treatment - Nurse 1 - General Ulcer Assessment Start: 10/09/20 09:16 Freq: Status: Active Protocol: MADELINE.LOWEXT Activity Type Activity Date Activity User E-Sign Co-Sign Detail Recorded Client Recorded Date Recorded By Document 10/09/20 09:16 [facility] [id number] 10/09/20 09:33 [facility] 10/09/20 09:16 - Today's Visit Information Type of service Initial Visit Arrival Mode Wheelchair Transfer Assistance Other Transfer Assist (Other) 1 assist Accompanied by caregiver Height and Weight Height 5 ft 6 in Weight 163 lb Weight in Pounds 163.0 lbs Weight Measurement Method Estimated by Staff Body Mass Index (BMI) 26.3 BMI Classification Overweight BSA - Owen 1.83 Vital Signs Temperature (97.8 F-99.1 F) 98.1 F Temperature Source Temporal Pulse Rate (60-100) 61 Pulse Location Monitor Respiratory Rate (12-18) 16 Respiratory rate source Observation Oxygen Delivery Method Room Air Blood Pressure (90/60-120/80) 138/68 H Blood Pressure Mean 91 Source Monitor Position Sitting Blood Pressure Location Right Arm History Since Last Visit- (Skip if this is Patient's initial visit) Left Footwear Regular Shoe Right Footwear Regular Shoe Communication Assessment Preferred language Lao Coroner Required No Able to Read Yes Able to Write Yes Communication Tools None Right Hearing Abillity Hard of Hearing Left Hearing Abillity Hard of Hearing Visual Assistive Devices Glasses Teaching Assessment Preferences Verbal,Written, Audio/Visual, Demonstration Barriers to Learning None Readiness To Learn Excellent Willingness to Engage in Self Management High Activies Readiness to Engage in Self Management High Activities Anxiety Level Calm Cooperation Cooperative Perception Coherent Interest in Health Problem Asks Questions Education Importance Acknowledges Need Does Patient Smoke tobacco or other No substances Smoking Status Former smoker Is Patient Diabetic Yes 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 Cultural/Episcopalian Needs that may affect No Treatment Plan Teaching: Wound Center *Welcome to the Wound Center -Person Taught Patient,Primary Caregiver -Response to teaching Verbalize understanding Welcome to the Wound Care Center English CORREA - Nurse 1 - General Ulcer Measurement Start: 10/09/20 09:16 Freq: Status: Active Protocol: Activity Type Activity Date Activity User E-Sign Co-Sign Detail Recorded Client Recorded Date Recorded By Document 10/09/20 09:16 [facility] [id number] 10/09/20 09:33 [facility] 10/09/20 09:16 Wound Center Nurse 1 #1- R HIP POST OP -Combined with other wound No -Current Size (cm) - Length 9.7 -Current Size (cm) - Width 4.1 -Current Size (cm) - Depth 3.1 -Total Square Cm 39.77 -Date of Last Picture (Recall this 10/09/20 field) -Photo Taken Yes -Epithelialization None Present -Tunneling No -Undermining/Tunneling Yes -Undermining/Tunneling Starts (O'clock 9 ) -Undermining/Tunneling Ends (O'clock) 3 -Maximum Distance (cm) 3 -Circular Undermining No -Exudate Amt Large -Exudate Type Serosanguineous -Wound Margin Distinct, Outline Attached -Granulation Amt Medium (34-66%) -Granulation Quality [place] -Slough/Fibrin Yes -Necrosis Amt Medium (34-66%) -Necrotic Tissue Type Adherent Slough -Texture (Lisa-wound Skin Appearance) Assessed -Moisture (Lisa-wound Skin Appearance) Assessed -Color (Lisa-wound Skin Appearance) Assessed -Temperature (Lisa-wound Skin No Abnormality Appearance) (Pt Warm) -Tenderness on Palpation (Lisa-wound No Skin Appearance) -Ulcer Cleansing SOAPY WATER -Foul Odor after Cleansing No -Anesthetic Used 4% Lidocaine Solution WC - Nurse 3 - General Ulcer D/C NN Start: 10/09/20 09:16 Freq: Status: Active Protocol: Activity Type Activity Date Activity User E-Sign Co-Sign Detail Recorded Client Recorded Date Recorded By Document 10/09/20 10:44 DL [id number] 10/09/20 10:47 DL 10/09/20 10:44 Wound Care Nurse 3 -Ulcer Cleansing Wound Cleanser -Foul Odor after Cleansing No -Negative Pressure Wound Therapy Continue -Setting (mmHg) 150 -Negative Pressure is Continuous -NPWT Application Charge ($) NPWT </= 50 sq cm Lias-Wound Care Barrier Treatment Response Procedure Tolerated Well Pain Scale: 0-10 Numeric Is Patient Pain Free? Yes WC - Visit Discharge Discharge Condition Stable Ambulatory Status Wheelchair Transportation [facility] Facility Type Longterm Care Facility Orders Sent Yes Wound debrided: Lateral thigh Laterality: Right Type of Debridement: Excisional debridement Anesthesia Used: 5% Lidocaine Gel Depth: Down to and including healthy tissue, in the subcutaneous layer and to muscle Percentage of wound debrided: 100 Instrument Used: 7mm curette Tissue Removed: Subcutaneous tissue and slough into the muscle Severity: Fat Layer Exposed Bleeding Controlled with: Pressure and Compression and gauze Patient tolerated procedure: Patient tolerated procedure well Charges/Coding Procedures Integumentary [id number]: [id number] Global Visit Assessment/Plan Assessment/Plan (1) Open wound of right thigh: CODE(S): S71.101A - Unspecified open wound, right thigh, initial encounter QUALIFIERS: Encounter type: initial encounter Qualified Code(s): S71.101A - Unspecified open wound, right thigh, initial encounter (2) Current use of shelter anticoagulation: CODE(S): Z79.01 - ocean transportation intermediary (current) use of anticoagulants (3) Acute postoperative anemia due to expected blood loss: CODE(S): D62 - Acute posthemorrhagic anemia (4) Traumatic hematoma of right thigh: CODE(S): S70.11XA - Contusion of right thigh, initial encounter QUALIFIERS: Encounter type: initial encounter Qualified Code(s): S70.11XA - Contusion of right thigh, initial encounter (5) Fall as cause of accidental injury at home as place of occurrence: CODE(S): W19.XXXA - Unspecified fall, initial encounter; Y92.009 - Unspecified place in unspecified non-institutional (private) residence as the place of occurrence of the external cause QUALIFIERS: Encounter type: initial encounter Qualified Code(s): W19.XXXA - Unspecified fall, initial encounter; Y92.009 - Unspecified place in unspecified non-institutional (private) residence as the place of occurrence of the external cause PLAN: Wound care - Wound VAC to 150 mmHG, dressing to be changed 3 times per week. Pain is controlled. Encouraged increase protein intake to help with wound healing. Prealbumin 21.1 on 09/08/20 Continue iron supplement for anemia- hematology/oncology following Follow up 2 weeks.
== END 2020-10-21 23:59 ==
LOC: WC 08:36
PROVIDERS: PCP Internal Medicine; Visit Provider Nurse Practitioner Family
DX: T81.89XA Other complications of procedures, not elsewhere classified, initial encounter (principal); S70.11XA Contusion of right thigh, initial encounter; D64.9 Anemia, unspecified; C34.31 Malignant neoplasm of lower lobe, right bronchus or lung; I48.0 Paroxysmal atrial fibrillation; E11.9 Type 2 diabetes mellitus without complications; Z79.02 Long term (current) use of antithrombotics/antiplatelets; Z87.891 Personal history of nicotine dependence; W18.30XA Fall on same level, unspecified, initial encounter; Y93.89 Activity, other specified; Y92.009 Unspecified place in unspecified non-institutional (private) residence as the place of occurrence of the external cause; Y99.8 Other external cause status
CPT/HCPCS: 11042; 11045; 97605; 99213; G0463

== ENCOUNTER → 2020-10-16 04:00 | Outpatient (REF) | payer MEDICARE, SELFPAY ==
[2020-10-09 09:16] VITALS: BMI 26.3
[2020-10-16 08:27] LABS: Hematocrit 27.4 % (37-47); Hemoglobin 8.9 g/dL (12.0-15.0); Mean Corp Hgb Conc 32.5 g/dL (32-36); Mean Corpuscular Volume 95.5 fL (81-99); Mean Platelet Vol. 9.2 fl (6.2-12.0); Platelet Count 297 K/mm3 (150-450); RBC Distribution Width CV 12.8 % (11.6-14.6); RBC Distribution Width SD 44.4 fl (35.1-43.9); Red Blood Count 2.87 M/mm3 (4.2-5.4); White Blood Count 7.6 K/mm3 (4.4-11.0)
[2020-10-16 08:42] LABS: Anion Gap 3 (5-15); BUN 41 mg/dL (7-18); BUN/Creat Ratio 38.3 RATIO (10-20); Calcium,Total 8.3 mg/dL (8.5-10.1); Chloride 109 mmol/L (98-107); Creatinine, Serum 1.07 mg/dL (0.55-1.02); EST Glomerular Filtration Rate 53 mL/min (>60); Est Glom Filt Rate - Afr Amer 64 mL/min (>60); Glucose 132 mg/dL (74-106); Potassium 4.3 mmol/L (3.5-5.1); Sodium Level 137 mmol/L (136-145)
[2020-10-16 11:16] VITALS: BMI 26.6
== END ==
LOC: OLS.WHLEAS 04:00
PROVIDERS: PCP Internal Medicine; Referring Provider Family Medicine; Visit Provider Family Medicine
DX: I10 Essential (primary) hypertension (principal); C34.91 Malignant neoplasm of unspecified part of right bronchus or lung; D62 Acute posthemorrhagic anemia; E86.0 Dehydration; S70.11XD Contusion of right thigh, subsequent encounter; W19.XXXD Unspecified fall, subsequent encounter
CPT/HCPCS: 36415; 80048; 85027

== ENCOUNTER → 2020-10-16 10:36 | Outpatient (CLI) | payer MEDICARE, SELFPAY ==
[2020-10-05 17:03] VITALS: BMI 27.6
[2020-10-16 06:49] VITALS: BMI 26.3
--- NOTE | 2020-10-16 10:37 | US_ITS ---
STUDY: RENAL ULTRASOUND - COMPLETE REASON FOR EXAM: Female, 80 years old. Lesion on CT 09-05-20 -- ATTN: RIGHT KIDNEY TECHNIQUE: Ultrasound evaluation of the kidneys was performed with real-time and static sawant-scale imaging. COMPARISON: Comparison is made with prior CT scan of the abdomen dated 09/05/2020. FINDINGS: RIGHT KIDNEY: Normal location of the right kidney, which is normal in size. The right kidney measures 13.4 cm x 5.8 cm x 4.9 cm. There is a normal cortex of the right kidney. The renal cortex measures 1.5 cm. There is no right renal mass or cyst. There are no right renal calculi. There is no right hydronephrosis. DISTAL RIGHT URETER: There is non-visualization of the distal right ureter. There is no demonstrated right ureterovesical junction calculus. There is a visualized right ureteral jet. LEFT KIDNEY: Normal location of the left kidney, which is normal in size. The left kidney measures 13.1 cm x 5.2 cm x 6.5 cm. There is a normal cortex of the left kidney. The renal cortex measures 1.3 cm. There is no left renal mass or cyst. There are no left renal calculi. There is no left hydronephrosis. DISTAL LEFT URETER: There is non-visualization of the distal left ureter. There is no demonstrated left ureterovesical junction calculus. There is a visualized left ureteral jet. BLADDER: The distended urinary bladder has a volume of 88 ml. There is a normal wall thickness of the distended urinary bladder. There is no demonstrated mass within the urinary bladder. There are no demonstrated bladder calculi. US/Kidney and Bladder IMPRESSION: Normal ultrasound of the kidneys and urinary bladder. No renal mass is seen. Electronically Signed: Mayo Tam MD at 12:26 EDT , Service support ,
== END ==
LOC: US 10:36
PROVIDERS: PCP Internal Medicine; Referring Provider Internal Medicine Hematology & Oncology; Visit Provider Internal Medicine Hematology & Oncology
DX: R93.89 Abnormal findings on diagnostic imaging of other specified body structures (principal); C34.31 Malignant neoplasm of lower lobe, right bronchus or lung
CPT/HCPCS: 76770

== ENCOUNTER 2020-10-23 09:30 | Outpatient (RCR) | payer MEDICARE, SELFPAY ==
[2020-10-16 11:16] VITALS: BMI 26.6
[2020-10-22 00:13] VITALS: BP 138/68; PULSE 61; RESP 16; TEMP 36.7
[2020-10-23 09:39] VITALS: BP 156/65; PULSE 71; TEMP 36; BMI 26.6
--- NOTE | 2020-10-23 13:14 | PN.PCM_ITS ---
History of Present Illness Date of Service: 10/23/20 Chief Complaint: Right lateral thigh wound after evacuation from a traumatic hematoma on 09/07/20 History of Wound: 80 F with a history of diabetes mellitus was admitted after a fall at home that resulted in a hematoma right lateral thigh. Patient is on Eliquis that is thought from previous atrial fibrillation. She fell a few days ago and landed on her right side. She became concerned because the hematoma was getting more painful and swollen. CT of the abdomen and pelvis showed right posterior lateral thigh stranding and hyperdense collection likely representing hematoma and soft tissue injury and showed a right lower lobe mass with 7 previously biopsied as well as a 2.4 cm isodense possibly solid lesion of the right mid kidney with renal ultrasound recommended. Since her fall she has been diagnosed with Stage IIB non-small cell lung cancer of right lower lobe, adenocarcinoma histology. She has been referred for radiation for this lung mass. She also has a history of anemia, she is on oral iron supplements, being follow by hematology/oncology for this also. Surgery 09/07/20 - Surgical preparation right lateral thigh with incision and drainage and excisional debridement and evacuation traumatic infected hematoma (90 cm2). Wound care - Wound VAC to 150 mmHg. VAC dressing changes 3 times per week. She was at [facility] but has been transferred to [facility]. When she transferred her [facility] removed her wound VAC and didn't send any wound care instructions. She will use Dakin's 0.25% moistened gauze daily until the wound VAC is obtained and home health can place. She has some swelling of her lower legs so will apply single layer tubigrip. She denies any fever. She states that her appetite is fair. Progress of Wound: Stable. Objective Data Objective Data Vital Signs: Vital Signs Temp Pulse Resp BP 96.8 F L 71 16 156/65 H 10/23/20 09:39 10/23/20 09:39 10/22/20 00:13 10/23/20 09:39 Weight: 163 lb Body Mass Index (BMI) 26.6 Charges/Coding Procedures Integumentary 111xxx-113xx: [id number] Global Visit Physical Exam Const alert and oriented x3 General Appearance: cooperative HEENT normocephalic Eyes PERRL Lymph Lymphatic: no lymphedema noted Resp normal respiratory effort Cardio regular rate GI non-tender Palpation: soft Extremity normal capillary refill Skin Wound Narrative: Right thigh wound is pink, into the muscle. There is no bone exposed. Neuro CN's II-XII intact bilaterally Sensorium / Orientation: awake Psych Thought Process: normal thought process Debridement Note Debridement Note Post-Debridement Measurements and Additional Note: Post-Debridement Measurements/Treatment - Nurse 1 - General Ulcer Assessment Start: 10/23/20 09:37 Freq: Status: Active Protocol: ELÍAS Activity Type Activity Date Activity User E-Sign Co-Sign Detail Recorded Client Recorded Date Recorded By Document 10/23/20 09:39 VT [id number] 10/23/20 09:47 VT 10/23/20 09:39 - Today's Visit Information Type of service Follow-up Visit (Physician/INSURANCE ADVISER ) Arrival Mode Ambulatory Patient Identification Verified (Name & Yes ) Height and Weight Body Mass Index (BMI) 26.6 BMI Classification Overweight Vital Signs Temperature (97.8 F-99.1 F) 96.8 F L Temperature Source Temporal Pulse Rate (60-100) 71 Pulse Location Monitor Blood Pressure (90/60-120/80) 156/65 H Blood Pressure Mean (mm Hg) 95 Source Monitor Position Semi-Fowlers Blood Pressure Location Right Arm History Since Last Visit- (Skip if this is Patient's initial visit) Have you changed medications since your No last visit? Any new allergies or adverse reactions No Had a fall/change in ADL's that may No increase risk of falls Signs or symptoms of abuse and/or No neglect since last visit Have you been in the hospital since your No last visit? Has dressing in place as prescribed No Has compression in place as prescribed N/A Has offloadiing in place as prescribed N/A Experienced any changes in pain level or No management Left Footwear Regular Shoe Right Footwear Regular Shoe Pain Scale: 0-10 Numeric Is Patient Pain Free? Yes - Nurse 1 - General Ulcer Measurement Start: 10/23/20 09:37 Freq: Status: Active Protocol: Activity Type Activity Date Activity User E-Sign Co-Sign Detail Recorded Client Recorded Date Recorded By Document 10/23/20 09:39 JONN [id number] 10/23/20 09:47 JONN 10/23/20 09:39 Wound Center Nurse 1 #1- R HIP POST OP -Current Size (cm) - Length 5.3 -Current Size (cm) - Width 2.9 -Current Size (cm) - Depth 2.1 -Total Square Cm 15.37 -Exudate Amt Large -Exudate Type Yellow/Green -Wound Margin Distinct, Outline Attached -Granulation Amt Medium (34-66%) -Granulation Quality Red -Necrosis Amt Medium (34-66%) -Necrotic Tissue Type Adherent Slough -Texture (Lisa-wound Skin Appearance) Assessed, Scarring -Moisture (Lisa-wound Skin Appearance) No Abnormality, Assessed -Color (Lisa-wound Skin Appearance) No Abnormality, Assessed -Temperature (Lisa-wound Skin No Abnormality Appearance) (Pt Warm) -Tenderness on Palpation (Lisa-wound No Skin Appearance) -Ulcer Cleansing soap and water -Foul Odor after Cleansing No -Anesthetic Used 4% Lidocaine Solution,5% Lidocaine Gel WC - Nurse 2 - General Ulcer CM Notes Start: 10/23/20 09:37 Freq: Status: Active Protocol: Activity Type Activity Date Activity User E-Sign Co-Sign Detail Recorded Client Recorded Date Recorded By Document 10/23/20 10:09 GILDA [id number] 10/23/20 10:12 GILDA 10/23/20 10:09 Wound Center Nurse 2 -Time 10:09 -Correct Patient Yes -Correct Side, Site, Position Yes -Correct Procedure Yes -Procedure Performed Yes -Type of Procedure Debridement -Clinical Debridement Muscle / Fascia -Tissue Removed Muscle -Post Debridement (cm) - Length 7.2 -Post Debridement (cm) - Width 3.2 -Post Debridement (cm) - Depth 2.9 -Total Square (Post) (cm) 23.04 -Area of Debridement (cm) - Length 7.2 -Area of Debridement (cm) - Width 3.2 -Total Square (Area) (cm) 23.04 -Tunneling No -Undermining/Tunneling Yes -Undermining/Tunneling Starts (O'clock 8 ) -Undermining/Tunneling Ends (O'clock) 5 -Maximum Distance (cm) 3 -Circular Undermining No -Wound/Ulcer Outcome Not Healed -Ulcer Cleansing Rinsed/ Irrigated with Saline -Foul Odor after Cleansing No -Bioengineered Tissue No -Bleeding Controlled with Pressure -Offloading No -Treatment Response Procedure Tolerated Well -Debridement - Subq, 1st 20sq cm No -Debridement - Muscle / Fascia, 1st Yes 20sq cm -Debridement, Muscle/Fascia, ea addt'l 1 20sq cm or part thereof Pain Scale: 0-10 Numeric Is Patient Pain Free? Yes WC - Nurse 3 - General Ulcer D/C NN Start: 10/23/20 09:37 Freq: Status: Active Protocol: Activity Type Activity Date Activity User E-Sign Co-Sign Detail Recorded Client Recorded Date Recorded By Document 10/23/20 10:32 DL [id number] 10/23/20 10:33 DL 10/23/20 10:32 Wound Care Nurse 3 #1- R HIP POST OP -Foul Odor after Cleansing No -Other Dressing moist gauze -Primary Dressing Covered/Secured with Dry Gauze & Roll Gauze, Secured with Tape Treatment Response Procedure Tolerated Well Pain Scale: 0-10 Numeric Is Patient Pain Free? Yes WC - Visit Discharge Discharge Condition Stable Ambulatory Status Wheelchair Transportation Private [facility] Facility Type Home Health Notes: Pt to use Dakins until Vac available. Orders Sent Yes Wound debrided: Hip/thigh Laterality: Right Type of Debridement: Excisional debridement Anesthesia Used: 5% Lidocaine Gel Depth: Down to and including healthy tissue, in the subcutaneous layer and to muscle Percentage of wound debrided: 100 Instrument Used: 7mm curette Tissue Removed: Subcutaneous tissue and slough into the muscle Severity: Fat Layer Exposed Amount of bleeding with debridement: Mild Bleeding Controlled with: Pressure Patient tolerated procedure: Patient tolerated procedure well Assessment/Plan Assessment/Plan (1) Open wound of right thigh: CODE(S): S71.101A - Unspecified open wound, right thigh, initial encounter QUALIFIERS: Encounter type: initial encounter Qualified Code(s): S71.101A - Unspecified open wound, right thigh, initial encounter (2) Hemoglobin A1c greater than 9.0%: CODE(S): R73.09 - Other abnormal glucose (3) Current use of exterminator helper termite anticoagulation: CODE(S): Z79.01 - assisted (current) use of anticoagulants (4) Acute postoperative anemia due to expected blood loss: CODE(S): D62 - Acute posthemorrhagic anemia (5) Fall as cause of accidental injury at home as place of occurrence: CODE(S): W19.XXXA - Unspecified fall, initial encounter; Y92.009 - Unspecified place in unspecified non-institutional (private) residence as the place of occurrence of the external cause QUALIFIERS: Encounter type: initial encounter Qualified Code(s): W19.XXXA - Unspecified fall, initial encounter; Y92.009 - Unspecified place in unspecified non-institutional (private) residence as the place of occurrence of the external cause PLAN: Wound care - Wound VAC to 150 mmHg. VAC dressing changes 3 times per week. She was at [facility] but has been transferred to [facility]. When she transferred her [facility] removed her wound VAC and didn't send any wound care instructions. She will use Dakin's 0.25% moistened gauze daily until the wound VAC is obtained and home health can place. She has some swelling of her lower legs so will apply single layer tubigrip. Encouraged increase protein intake to help with wound healing. Prealbumin 21.1 on 09/08/20 Continue iron supplement for anemia- hematology/oncology following Follow up 2 weeks.
== END 2020-11-21 23:59 ==
LOC: WC 09:30
PROVIDERS: PCP Internal Medicine; Visit Provider Nurse Practitioner Family
DX: T81.89XA Other complications of procedures, not elsewhere classified, initial encounter (principal); E11.9 Type 2 diabetes mellitus without complications; S70.11XA Contusion of right thigh, initial encounter; W19.XXXA Unspecified fall, initial encounter; Y93.89 Activity, other specified; Y92.009 Unspecified place in unspecified non-institutional (private) residence as the place of occurrence of the external cause; Y99.8 Other external cause status; C34.31 Malignant neoplasm of lower lobe, right bronchus or lung; Z79.01 Long term (current) use of anticoagulants; I48.91 Unspecified atrial fibrillation
CPT/HCPCS: 11043; 11046

== ENCOUNTER 2020-12-11 14:00 | Outpatient (RCR) | payer MEDICARE, SELFPAY ==
[2020-11-22 00:19] VITALS: BP 156/65; PULSE 71; RESP 16; TEMP 36; BMI 26.6
[2020-12-11 13:55] VITALS: BP 169/82; PULSE 92; RESP 22; TEMP 36.8; BMI 26.6
--- NOTE | 2020-12-11 15:27 | PCM.WC.PN ---
History of Present Illness Date of Service: 12/11/20 Chief Complaint: Right lateral thigh wound after evacuation from a traumatic hematoma on 09/07/20 History of Wound: 80 F with a history of diabetes mellitus was admitted after a fall at home that resulted in a hematoma right lateral thigh. Patient is on Eliquis that is thought from previous atrial fibrillation. She fell a few days ago and landed on her right side. She became concerned because the hematoma was getting more painful and swollen. CT of the abdomen and pelvis showed right posterior lateral thigh stranding and hyperdense collection likely representing hematoma and soft tissue injury and showed a right lower lobe mass with 7 previously biopsied as well as a 2.4 cm isodense possibly solid lesion of the right mid kidney with renal ultrasound recommended. Since her fall she has been diagnosed with Stage IIB non-small cell lung cancer of right lower lobe, adenocarcinoma histology. She has been referred for radiation for this lung mass. She also has a history of anemia, she is on oral iron supplements, being follow by hematology/oncology for this also. Surgery 09/07/20 - Surgical preparation right lateral thigh with incision and drainage and excisional debridement and evacuation traumatic infected hematoma (90 cm2). Wound care - Wound VAC to 150 mmHg. VAC dressing changes 3 times per week. She was at [facility] but has been transferred to [facility]. When she transferred her [facility] removed her wound VAC and didn't send any wound care instructions. She will use Dakin's 0.25% moistened gauze daily until the wound VAC is obtained and home health can place. She has some swelling of her lower legs so will apply single layer tubigrip. She denies any fever. She states that her appetite is fair. Progress of Wound: Improved. Objective Data Objective Data Vital Signs: Vital Signs Temp Pulse Resp BP 98.3 F 92 22 H 169/82 H 12/11/20 13:55 12/11/20 13:55 12/11/20 13:55 12/11/20 13:55 Weight: 163 lb Body Mass Index (BMI) 26.6 Charges/Coding Procedures Integumentary 111xxx-113xx: 09744 Liv subq tissue 20 sq cm/< Physical Exam Const alert General Appearance: cooperative HEENT normocephalic Resp normal respiratory effort Cardio regular rate GI Palpation: soft Extremity normal capillary refill Skin Wound Narrative: Right lateral hip/thigh ulcer is improving. Neuro CN's II-XII intact bilaterally Psych Appearance: grossly normal Debridement Note Debridement Note Wound debrided: Hip/thigh ulcer Laterality: Right Type of Debridement: Excisional debridement Anesthesia Used: 5% Lidocaine Gel Depth: Down to and including healthy tissue and in the subcutaneous layer Percentage of wound debrided: 100 Instrument Used: 5mm curette Tissue Removed: Subcutaneous tissue and slough Severity: Fat Layer Exposed Amount of bleeding with debridement: Mild Bleeding Controlled with: Pressure Patient tolerated procedure: Patient tolerated procedure well Post-Debridement Measurements and Additional Note: Post-Debridement Measurements/Treatment - Nurse 1 - General Ulcer Assessment Start: 12/11/20 13:55 Freq: Status: Active Protocol: ELÍAS Activity Type Activity Date Activity User E-Sign Co-Sign Detail Recorded Client Recorded Date Recorded By Document 12/11/20 13:55 DL [id number] 12/11/20 14:03 DL 12/11/20 13:55 WC - Today's Visit Information Type of service Follow-up Visit (Physician/CODING TECHNICIAN ) Arrival Mode Ambulatory, Walker Transfer Assistance None Patient Identification Verified (Name & Yes ) Patient Requires Transmission-Based No Precautions Finger Stick Blood Sugar(mg/dl) (if not checked indicated): Height and Weight Body Mass Index (BMI) 26.6 BMI Classification Overweight Vital Signs Temperature (97.8 F-99.1 F) 98.3 F Temperature Source Temporal Pulse Rate (60-100) 92 Pulse Location Monitor Respiratory Rate (12-18) 22 H Respiratory rate source Observation Blood Pressure (90/60-120/80) 169/82 H Blood Pressure Mean (mm Hg) 111 Source Monitor History Since Last Visit- (Skip if this is Patient's initial visit) Have you changed medications since your No last visit? Any new allergies or adverse reactions No Had a fall/change in ADL's that may No increase risk of falls Signs or symptoms of abuse and/or No neglect since last visit Have you been in the hospital since your No last visit? Has dressing in place as prescribed Yes Has compression in place as prescribed N/A Has offloadiing in place as prescribed Yes Experienced any changes in pain level or No management Pain Scale: 0-10 Numeric Is Patient Pain Free? Yes - Nurse 1 - General Ulcer Measurement Start: 12/11/20 13:55 Freq: Status: Active Protocol: Activity Type Activity Date Activity User E-Sign Co-Sign Detail Recorded Client Recorded Date Recorded By Document 12/11/20 13:55 [id number] 12/11/20 14:03 DL 12/11/20 13:55 Wound Center Nurse 1 #1- R HIP POST OP -Current Size (cm) - Length 4 -Current Size (cm) - Width 2.2 -Current Size (cm) - Depth 2.6 -Total Square Cm 8.8 -Photo Taken No -Undermining/Tunneling Starts (O'clock 9 ) -Undermining/Tunneling Ends (O'clock) 3 -Maximum Distance (cm) 1.8 -Circular Undermining No -Exudate Amt Medium -Exudate Type Serosanguineous -Wound Margin Distinct, Outline Attached -Granulation Amt Medium (34-66%) -Granulation Quality [place] -Necrosis Amt Medium (34-66%) -Necrotic Tissue Type Adherent Slough -Structure Exposed N/A -Texture (Lisa-wound Skin Appearance) Scarring -Moisture (Lisa-wound Skin Appearance) Maceration -Color (Lisa-wound Skin Appearance) No Abnormality -Temperature (Lisa-wound Skin No Abnormality Appearance) (Pt Warm) -Tenderness on Palpation (Lisa-wound No Skin Appearance) -Ulcer Cleansing Wound Cleanser -Foul Odor after Cleansing No -Anesthetic Used 4% Lidocaine Solution WC - Nurse 2 - General Ulcer CM Notes Start: 12/11/20 13:55 Freq: Status: Active Protocol: Activity Type Activity Date Activity User E-Sign Co-Sign Detail Recorded Client Recorded Date Recorded By Document 12/11/20 14:33 GILDA [id number] 12/11/20 14:35 GILDA 12/11/20 14:33 Wound Center Nurse 2 -Time 14:33 -Correct Patient Yes -Correct Side, Site, Position Yes -Correct Procedure Yes -Procedure Performed Yes -Type of Procedure Debridement -Clinical Debridement Subcutaneous -Tissue Removed Subcutaneous -Post Debridement (cm) - Length 4.5 -Post Debridement (cm) - Width 2 -Post Debridement (cm) - Depth 1.3 -Total Square (Post) (cm) 9.0 -Area of Debridement (cm) - Length 4.5 -Area of Debridement (cm) - Width 2 -Total Square (Area) (cm) 9.0 -Tunneling No -Undermining/Tunneling Yes -Undermining/Tunneling Starts (O'clock 8 ) -Undermining/Tunneling Ends (O'clock) 11 -Maximum Distance (cm) 1.3 -Circular Undermining No -Wound/Ulcer Outcome Not Healed -Ulcer Cleansing Rinsed/ Irrigated with Saline -Foul Odor after Cleansing No -Bioengineered Tissue No -Bleeding Controlled with Pressure -Offloading No -Treatment Response Procedure Tolerated Well -Debridement - Subq, 1st 20sq cm Yes Pain Scale: 0-10 Numeric Is Patient Pain Free? Yes - Nurse 3 - General Ulcer D/C NN Start: 12/11/20 13:55 Freq: Status: Active Protocol: Activity Type Activity Date Activity User E-Sign Co-Sign Detail Recorded Client Recorded Date Recorded By Document 12/11/20 14:42 BYRON [id number] 12/11/20 14:42 BYRON 12/11/20 14:42 Wound Care Nurse 3 #1- R HIP POST OP -Primary Dressing Applied Other -Other Dressing wet to dry -Primary Dressing Covered/Secured with Dry Gauze, Secured with Tape Pain Scale: 0-10 Numeric Is Patient Pain Free? 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: CODE(S): L97.112 - Non-pressure chronic ulcer of right thigh with fat layer exposed (2) Current use of assistant terminal manager anticoagulation: CODE(S): Z79.01 - assistant terminal manager (current) use of anticoagulants (3) Acute postoperative anemia due to expected blood loss: CODE(S): D62 - Acute posthemorrhagic anemia (4) Traumatic hematoma of right thigh: CODE(S): S70.11XA - Contusion of right thigh, initial encounter QUALIFIERS: Encounter type: initial encounter Qualified Code(s): S70.11XA - Contusion of right thigh, initial encounter (5) Fall as cause of accidental injury at home as place of occurrence: CODE(S): W19.XXXA - Unspecified fall, initial encounter; Y92.009 - Unspecified place in unspecified non-institutional (private) residence as the place of occurrence of the external cause QUALIFIERS: Encounter type: initial encounter Qualified Code(s): W19.XXXA - Unspecified fall, initial encounter; Y92.009 - Unspecified place in unspecified non-institutional (private) residence as the place of occurrence of the external cause (6) Diabetes: CODE(S): E11.9 - Type 2 diabetes mellitus without complications (7) Debility: CODE(S): R53.81 - Other malaise PLAN: Wound care - Wound VAC to 150 mmHg. VAC dressing changes 3 times per week. She will use Dakin's 0.25% moistened gauze covered by ABD daily until wound VAC is replaced. She has some swelling of her lower legs so will apply single layer tubigrip. Encouraged increase protein intake to help with wound healing. Prealbumin 21.1 on 09/08/20 Continue iron supplement for anemia- hematology/oncology following Follow up 3 weeks.
== END 2020-12-21 23:59 ==
LOC: WC 14:00
PROVIDERS: PCP Internal Medicine; Visit Provider Nurse Practitioner Family
DX: S70.11XA Contusion of right thigh, initial encounter (principal); W19.XXXA Unspecified fall, initial encounter; E11.9 Type 2 diabetes mellitus without complications; I48.91 Unspecified atrial fibrillation; C34.31 Malignant neoplasm of lower lobe, right bronchus or lung; Z79.01 Long term (current) use of anticoagulants
CPT/HCPCS: 11042

== ENCOUNTER → 2020-12-25 05:00 | Outpatient (REF) | payer MEDICARE, SELFPAY ==
[2020-12-25 07:56] LABS: Hemoglobin 8.9 g/dL (12.0-15.0); Mean Corp Hgb Conc 31.8 g/dL (32-36); Mean Corpuscular Hgb 30.9 pg (27.0-32.0); Mean Corpuscular Volume 97.2 fL (81-99); Platelet Count 292 K/mm3 (150-450); RBC Distribution Width CV 12.3 % (11.6-14.6); RBC Distribution Width SD 44.1 fl (35.1-43.9); Red Blood Count 2.88 M/mm3 (4.2-5.4); White Blood Count 10.1 K/mm3 (4.4-11.0)
[2020-12-25 08:23] LABS: Anion Gap 8 (5-15); BUN 33 mg/dL (7-18); Calcium,Total 8.2 mg/dL (8.5-10.1); Chloride 110 mmol/L (98-107); Creatinine, Serum 1.22 mg/dL (0.55-1.02); EST Glomerular Filtration Rate 45 mL/min (>60); Est Glom Filt Rate - Afr Amer 55 mL/min (>60); Glucose 39 mg/dL (74-106); Potassium 4.3 mmol/L (3.5-5.1); Sodium Level 141 mmol/L (136-145)
== END ==
PROVIDERS: PCP Internal Medicine; Visit Provider Internal Medicine
DX: E11.9 Type 2 diabetes mellitus without complications (principal); I10 Essential (primary) hypertension; E78.5 Hyperlipidemia, unspecified
CPT/HCPCS: 36415; 80048; 85027

== ENCOUNTER → 2020-12-29 12:00 | Outpatient (REF) | payer MEDICARE, SELFPAY ==
[2020-12-29 13:12] LABS: Iron 26 ug/dL (50-170); Iron Binding Capacity,Total 249 ug/dL (250-450); PERCENT IRON SATURATION 10.4 % (15.0-55.0)
[2020-12-29 13:16] LABS: Vitamin B12 541 pg/mL (211-911)
== END ==
PROVIDERS: PCP Internal Medicine
DX: D50.8 Other iron deficiency anemias (principal); C34.31 Malignant neoplasm of lower lobe, right bronchus or lung; Z79.899 Other long term (current) drug therapy
CPT/HCPCS: 36415; 82607; 83540; 83550

== ENCOUNTER 2021-01-08 08:45 | Outpatient (RCR) | payer MEDICARE, SELFPAY ==
[2021-01-08 08:50] VITALS: BP 180/72; PULSE 95; TEMP 35.7
--- NOTE | 2021-01-08 10:45 | PCM.WC.PN ---
History of Present Illness Date of Service: 01/08/21 Chief Complaint: Right lateral thigh wound after evacuation from a traumatic hematoma on 09/07/20 History of Wound: 80 F with a history of diabetes mellitus was admitted after a fall at home that resulted in a hematoma right lateral thigh. Patient is on Eliquis that is thought from previous atrial fibrillation. She fell a few days ago and landed on her right side. She became concerned because the hematoma was getting more painful and swollen. CT of the abdomen and pelvis showed right posterior lateral thigh stranding and hyperdense collection likely representing hematoma and soft tissue injury and showed a right lower lobe mass with 7 previously biopsied as well as a 2.4 cm isodense possibly solid lesion of the right mid kidney with renal ultrasound recommended. Since her fall she has been diagnosed with Stage IIB non-small cell lung cancer of right lower lobe, adenocarcinoma histology. She has been referred for radiation for this lung mass. She also has a history of anemia, she is on oral iron supplements, being follow by hematology/oncology for this also. Surgery 09/07/20 - Surgical preparation right lateral thigh with incision and drainage and excisional debridement and evacuation traumatic infected hematoma (90 cm2). Wound care - Discontinue wound VAC per patient request. Will start silver alginate packed into the tunnel between 11-12 o'clock daily cover with gauze. Wash wound with soap and water before the dressing change. She has some swelling of her lower legs so will apply single layer tubigrip. She denies any fever. She states that her appetite is fair. Progress of Wound: Improved. Objective Data Objective Data Vital Signs: Vital Signs Temp Pulse BP 96.2 F L 95 180/72 H 01/08/21 08:50 01/08/21 08:50 01/08/21 08:50 Charges/Coding Procedures Integumentary 111xxx-113xx: 19568 Liv subq tissue 20 sq cm/< Physical Exam Const alert General Appearance: cooperative HEENT normocephalic Eyes PERRL Lymph Lymphatic: no lymphedema noted Resp normal respiratory effort Cardio regular rate GI Palpation: soft Extremity normal capillary refill Skin Wound Narrative: Right lateral hip ulcer with tunneling at 11-12 o'clock. Beefy pink in color. Smaller in size. Neuro CN's II-XII intact bilaterally Psych Appearance: grossly normal Debridement Note Debridement Note Wound debrided: lateral hip ulcer Laterality: Right Wound Grade/Stage: Stage IV Type of Debridement: Excisional debridement Anesthesia Used: 5% Lidocaine Gel Depth: Down to and including healthy tissue and in the subcutaneous layer Percentage of wound debrided: 100 Instrument Used: 5mm curette Tissue Removed: Subcutaneous tissue and slough Severity: Fat Layer Exposed Amount of bleeding with debridement: Mild Bleeding Controlled with: Pressure Patient tolerated procedure: Patient tolerated procedure well Post-Debridement Measurements and Additional Note: Post-Debridement Measurements/Treatment - Nurse 1 - General Ulcer Assessment Start: 01/08/21 08:50 Freq: Status: Active Protocol: ELÍAS Activity Type Activity Date Activity User E-Sign Co-Sign Detail Recorded Client Recorded Date Recorded By Document 01/08/21 08:50 JONN [id number] 01/08/21 08:57 JONN 01/08/21 08:50 WC - Today's Visit Information Type of service Follow-up Visit (Physician/ELECTRONICS PROCESSOR ) Arrival Mode Ambulatory, Walker Patient Identification Verified (Name & Yes ) Patient Requires Transmission-Based No Precautions Vital Signs Temperature (97.8 F-99.1 F) 96.2 F L Temperature Source Temporal Pulse Rate (60-100) 95 Pulse Location Monitor Blood Pressure (90/60-120/80) 180/72 H Blood Pressure Mean (mm Hg) 108 Source Monitor History Since Last Visit- (Skip if this is Patient's initial visit) Have you changed medications since your No last visit? Any new allergies or adverse reactions No Had a fall/change in ADL's that may No increase risk of falls Signs or symptoms of abuse and/or No neglect since last visit Have you been in the hospital since your No last visit? Has dressing in place as prescribed Yes Has compression in place as prescribed N/A Has offloadiing in place as prescribed N/A Experienced any changes in pain level or No management Left Footwear Regular Shoe Right Footwear Regular Shoe - Nurse 1 - General Ulcer Measurement Start: 01/08/21 08:50 Freq: Status: Active Protocol: Activity Type Activity Date Activity User E-Sign Co-Sign Detail Recorded Client Recorded Date Recorded By Document 01/08/21 08:50 JONN [id number] 01/08/21 08:57 JONN 01/08/21 08:50 Wound Center Nurse 1 #1- R HIP POST OP -Combined with other wound No -Current Size (cm) - Length 3 -Current Size (cm) - Width 2 -Current Size (cm) - Depth 1 -Total Square Cm 6 -Photo Taken No -Epithelialization Medium 34-66% -Tunneling No -Undermining/Tunneling Yes -Undermining/Tunneling Starts (O'clock 8 ) -Undermining/Tunneling Ends (O'clock) 11 -Maximum Distance (cm) 1 -Circular Undermining No -Classification - Thickness Full Thickness with Exposed Support Structure -Change in Wound Grade/Stage No -Exudate Amt Medium -Exudate Type Serosanguineous -Wound Margin Distinct, Outline Attached -Granulation Amt Medium (34-66%) -Granulation Quality Braden,Red -Slough/Fibrin Yes -Necrosis Amt Medium (34-66%) -Necrotic Tissue Type Adherent Slough -Structure Exposed N/A -Texture (Lisa-wound Skin Appearance) No Abnormality, Assessed -Moisture (Lisa-wound Skin Appearance) No Abnormality, Assessed -Color (Lisa-wound Skin Appearance) No Abnormality, Assessed -Temperature (Lisa-wound Skin No Abnormality Appearance) (Pt Warm) -Tenderness on Palpation (Lisa-wound No Skin Appearance) -Ulcer Cleansing Rinsed/ Irrigated with Saline -Foul Odor after Cleansing No -Anesthetic Used 4% Lidocaine Solution WC - Nurse 2 - General Ulcer CM Notes Start: 01/08/21 08:50 Freq: Status: Active Protocol: Activity Type Activity Date Activity User E-Sign Co-Sign Detail Recorded Client Recorded Date Recorded By Document 01/08/21 09:13 GILDA [id number] 01/08/21 09:16 GILDA 01/08/21 09:13 Wound Center Nurse 2 -Time 09:13 -Correct Patient Yes -Correct Side, Site, Position Yes -Correct Procedure Yes -Procedure Performed Yes -Type of Procedure Debridement -Clinical Debridement Subcutaneous -Tissue Removed Subcutaneous -Post Debridement (cm) - Length 3 -Post Debridement (cm) - Width 1.7 -Post Debridement (cm) - Depth 0.9 -Total Square (Post) (cm) 5.1 -Area of Debridement (cm) - Length 3 -Area of Debridement (cm) - Width 1.7 -Total Square (Area) (cm) 5.1 -Tunneling No -Undermining/Tunneling Yes -Undermining/Tunneling Starts (O'clock 11 ) -Undermining/Tunneling Ends (O'clock) 12 -Maximum Distance (cm) 1.2 -Circular Undermining No -Ulcer Cleansing Rinsed/ Irrigated with Saline -Foul Odor after Cleansing No -Bioengineered Tissue No -Bleeding Controlled with Pressure -Offloading No -Treatment Response Procedure Tolerated Well -Debridement - Subq, 1st 20sq cm Yes Pain Scale: 0-10 Numeric Is Patient Pain Free? Yes WC - Nurse 3 - General Ulcer D/C NN Start: 01/08/21 08:50 Freq: Status: Active Protocol: Activity Type Activity Date Activity User E-Sign Co-Sign Detail Recorded Client Recorded Date Recorded By Document 01/08/21 09:21 AK [id number] 01/08/21 09:22 AK 01/08/21 09:21 Wound Care Nurse 3 #1- R HIP POST OP -Ulcer Cleansing Rinsed/ Irrigated with Saline -Primary Dressing Applied Silvercel -Primary Dressing Covered/Secured with Dry Gauze, Secured with Tape -Silvercel 1 Pain Scale: 0-10 Numeric Is Patient Pain Free? 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: CODE(S): L97.112 - Non-pressure chronic ulcer of right thigh with fat layer exposed (2) Current use of terminal gauger anticoagulation: CODE(S): Z79.01 - custodial (current) use of anticoagulants (3) Traumatic hematoma of right thigh: CODE(S): S70.11XA - Contusion of right thigh, initial encounter QUALIFIERS: Encounter type: initial encounter Qualified Code(s): S70.11XA - Contusion of right thigh, initial encounter (4) Fall as cause of accidental injury at home as place of occurrence: CODE(S): W19.XXXA - Unspecified fall, initial encounter; Y92.009 - Unspecified place in unspecified non-institutional (private) residence as the place of occurrence of the external cause QUALIFIERS: Encounter type: initial encounter Qualified Code(s): W19.XXXA - Unspecified fall, initial encounter; Y92.009 - Unspecified place in unspecified non-institutional (private) residence as the place of occurrence of the external cause (5) Diabetes: CODE(S): E11.9 - Type 2 diabetes mellitus without complications (6) Debility: CODE(S): R53.81 - Other malaise PLAN: Wound care - Discontinue wound VAC per patient request. Will start silver alginate packed into the tunnel between 11-12 o'clock daily cover with gauze. Wash wound with soap and water before the dressing change. She has some swelling of her lower legs so will apply single layer tubigrip. Encouraged increase protein intake to help with wound healing. Prealbumin 21.1 on 09/08/20 Continue iron supplement for anemia- hematology/oncology following Follow up 2 weeks.
== END 2021-01-21 23:59 ==
LOC: WC 08:45
PROVIDERS: PCP Internal Medicine; Visit Provider Nurse Practitioner Family
DX: S70.11XA Contusion of right thigh, initial encounter (principal); W19.XXXA Unspecified fall, initial encounter; E11.9 Type 2 diabetes mellitus without complications; I48.91 Unspecified atrial fibrillation; C34.31 Malignant neoplasm of lower lobe, right bronchus or lung; Z79.01 Long term (current) use of anticoagulants
CPT/HCPCS: 11042

== ENCOUNTER 2021-02-05 11:30 | Outpatient (RCR) | payer MEDICARE, SELFPAY ==
[2021-01-22 00:31] VITALS: BP 180/72; PULSE 95; TEMP 35.7
--- NOTE | 2021-01-24 16:16 | WC ---
Joanna from [facility] called to ask if they can decrease wound visits to 3x/week per patient's request. SHe would like less visits per Joanna. Discussed this with Miriam Hsieh NP who is only okay to decrease visits as long as the drainage is small. If the dressings still show moderate to large amount of drainage, then dressings still need done daily. Patient missed her wound center visit on 01/22/21 but rescheduled on 01/29/21. Left the message with Joanna on her voicemail.
[2021-02-05 11:36] VITALS: BP 187/88; PULSE 87; TEMP 36.8
--- NOTE | 2021-02-05 15:45 | PCM.WC.PN ---
History of Present Illness Date of Service: 02/05/21 Chief Complaint: Right lateral thigh wound after evacuation from a traumatic hematoma on 09/07/20 History of Wound: 80 F with a history of diabetes mellitus was admitted after a fall at home that resulted in a hematoma right lateral thigh. Patient is on Eliquis that is thought from previous atrial fibrillation. She fell a few days ago and landed on her right side. She became concerned because the hematoma was getting more painful and swollen. CT of the abdomen and pelvis showed right posterior lateral thigh stranding and hyperdense collection likely representing hematoma and soft tissue injury and showed a right lower lobe mass with 7 previously biopsied as well as a 2.4 cm isodense possibly solid lesion of the right mid kidney with renal ultrasound recommended. Since her fall she has been diagnosed with Stage IIB non-small cell lung cancer of right lower lobe, adenocarcinoma histology. She has been referred for radiation for this lung mass. She also has a history of anemia, she is on oral iron supplements, being follow by hematology/oncology for this also. Surgery 09/07/20 - Surgical preparation right lateral thigh with incision and drainage and excisional debridement and evacuation traumatic infected hematoma (90 cm2). Wound care - Silver alginate daily or every other day, cover with gauze. Wash wound with soap and water before the dressing change. She has some swelling of her lower legs so will apply single layer tubigrip. She denies any fever. She states that her appetite is fair. Progress of Wound: Improved. Objective Data Objective Data Vital Signs: Vital Signs Temp Pulse BP 98.2 F 87 187/88 H 02/05/21 11:36 02/05/21 11:36 02/05/21 11:36 Charges/Coding Procedures Integumentary 111xxx-113xx: 56347 Liv subq tissue 20 sq cm/< Physical Exam Const alert General Appearance: cooperative HEENT normocephalic Resp normal respiratory effort Cardio regular rate GI Palpation: soft Extremity normal capillary refill Skin Wound Narrative: Right hip/thigh ulcer is pink and improving. Neuro CN's II-XII intact bilaterally Psych Appearance: well kempt Debridement Note Debridement Note Wound debrided: Lateral hip/thigh ulcer Laterality: Right Type of Debridement: Excisional debridement Anesthesia Used: 4% Lidocaine Solution Depth: Down to and including healthy tissue and in the subcutaneous layer Percentage of wound debrided: 100 Instrument Used: 3mm curette Tissue Removed: Subcutaneous tissue and slough Severity: Fat Layer Exposed Amount of bleeding with debridement: Mild Bleeding Controlled with: Pressure Patient tolerated procedure: Patient tolerated procedure well Post-Debridement Measurements and Additional Note: Post-Debridement Measurements/Treatment WC - Nurse 1 - General Ulcer Assessment Start: 02/05/21 11:36 Freq: Status: Active Protocol: WC.LOWEXTawnya Activity Type Activity Date Activity User E-Sign Co-Sign Detail Recorded Client Recorded Date Recorded By Document 02/05/21 11:36 KR [id number] 02/05/21 11:39 KR Edit Result 02/05/21 11:36 KR (1) [id number] 02/05/21 11:41 KR (1) Pulse Rate (60-100) => 87 Blood Pressure (90/60-120/80) => 187/88 H Blood Pressure Mean (mm Hg) => 121 02/05/21 11:36 WC - Today's Visit Information Type of service Follow-up Visit (Physician/TICKET COLLECTOR OR USHER ) Arrival Mode Ambulatory, Walker Patient Identification Verified (Name & Yes ) Vital Signs Temperature (97.8 F-99.1 F) 98.2 F Temperature Source Temporal Pulse Rate (60-100) 87 Pulse Location Monitor Blood Pressure (90/60-120/80) 187/88 H Blood Pressure Mean (mm Hg) 121 Source Monitor Position Sitting Blood Pressure Location Left Arm History Since Last Visit- (Skip if this is Patient's initial visit) Have you changed medications since your No last visit? Any new allergies or adverse reactions No Had a fall/change in ADL's that may No increase risk of falls Signs or symptoms of abuse and/or No neglect since last visit Have you been in the hospital since your No last visit? Has dressing in place as prescribed Yes Has compression in place as prescribed N/A Has offloadiing in place as prescribed N/A Experienced any changes in pain level or No management Left Footwear Regular Shoe Right Footwear Regular Shoe Pain Scale: 0-10 Numeric Is Patient Pain Free? Yes - Nurse 1 - General Ulcer Measurement Start: 02/05/21 11:36 Freq: Status: Active Protocol: Activity Type Activity Date Activity User E-Sign Co-Sign Detail Recorded Client Recorded Date Recorded By Document 02/05/21 11:36 KR [id number] 02/05/21 11:39 KR 02/05/21 11:36 Wound Center Nurse 1 #1- R HIP POST OP -Current Size (cm) - Length 2.2 -Current Size (cm) - Width 0.5 -Current Size (cm) - Depth 0.6 -Total Square Cm 1.10 -Photo Taken No -Undermining/Tunneling Starts (O'clock 3 ) -Undermining/Tunneling Ends (O'clock) 4 -Maximum Distance (cm) 0.5 -Exudate Amt None Present -Wound Margin Distinct, Outline Attached -Granulation Amt Medium (34-66%) -Granulation Quality Red -Necrosis Amt Medium (34-66%) -Necrotic Tissue Type Adherent Slough -Structure Exposed N/A -Texture (Lisa-wound Skin Appearance) Scarring -Moisture (Lisa-wound Skin Appearance) Dry/Scaly -Color (Lisa-wound Skin Appearance) No Abnormality, Assessed -Temperature (Lisa-wound Skin No Abnormality Appearance) (Pt Warm) -Tenderness on Palpation (Lisa-wound No Skin Appearance) -Ulcer Cleansing Soap and Water -Foul Odor after Cleansing No -Anesthetic Used 4% Lidocaine Solution WC - Nurse 2 - General Ulcer CM Notes Start: 02/05/21 11:36 Freq: Status: Active Protocol: Activity Type Activity Date Activity User E-Sign Co-Sign Detail Recorded Client Recorded Date Recorded By Document 02/05/21 12:09 GILDA [id number] 02/05/21 12:10 GILDA 02/05/21 12:09 Wound Center Nurse 2 -Time 12:09 -Correct Patient Yes -Correct Side, Site, Position Yes -Correct Procedure Yes -Procedure Performed Yes -Type of Procedure Debridement -Clinical Debridement Subcutaneous -Tissue Removed Subcutaneous -Post Debridement (cm) - Length 2 -Post Debridement (cm) - Width 1 -Post Debridement (cm) - Depth 0.4 -Total Square (Post) (cm) 2 -Area of Debridement (cm) - Length 2 -Area of Debridement (cm) - Width 1 -Total Square (Area) (cm) 2 -Tunneling No -Undermining/Tunneling No -Circular Undermining No -Wound/Ulcer Outcome Not Healed -Ulcer Cleansing Rinsed/ Irrigated with Saline -Foul Odor after Cleansing No -Bioengineered Tissue No -Bleeding Controlled with Pressure -Offloading No -Treatment Response Procedure Tolerated Well -Debridement - Subq, 1st 20sq cm Yes Pain Scale: 0-10 Numeric Is Patient Pain Free? Yes WC - Nurse 3 - General Ulcer D/C NN Start: 02/05/21 11:36 Freq: Status: Active Protocol: Activity Type Activity Date Activity User E-Sign Co-Sign Detail Recorded Client Recorded Date Recorded By Document 02/05/21 12:16 DL [id number] 02/05/21 12:18 DL 02/05/21 12:16 Wound Care Nurse 3 #1- R HIP POST OP -Ulcer Cleansing Soap and Water -Foul Odor after Cleansing No -Primary Dressing Applied Aquacel AG 4x4 -Primary Dressing Covered/Secured with Dry Gauze, Secured with Tape -Aquacel AG 4x4 1 Treatment Response Procedure Tolerated Well Pain Scale: 0-10 Numeric Is Patient Pain Free? 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: CODE(S): L97.112 - Non-pressure chronic ulcer of right thigh with fat layer exposed (2) Debility: CODE(S): R53.81 - Other malaise (3) Falls: CODE(S): W19.XXXA - Unspecified fall, initial encounter (4) Hemoglobin A1c greater than 9.0%: CODE(S): R73.09 - Other abnormal glucose (5) Traumatic hematoma of right thigh: CODE(S): S70.11XA - Contusion of right thigh, initial encounter QUALIFIERS: Encounter type: initial encounter Qualified Code(s): S70.11XA - Contusion of right thigh, initial encounter (6) Type 2 diabetes mellitus: CODE(S): E11.9 - Type 2 diabetes mellitus without complications PLAN: Wound care - Silver alginate cover with gauze daily or every other day. It maybe difficulty for her to have the dressing changed daily. Wash wound with soap and water before the dressing change. She has some swelling of her lower legs so will apply single layer tubigrip. Encouraged increase protein intake to help with wound healing. Prealbumin 21.1 on 09/08/20 Continue iron supplement for anemia- hematology/oncology following Follow up 2 weeks.
== END 2021-02-20 23:59 ==
LOC: WC 11:30
PROVIDERS: PCP Internal Medicine; Visit Provider Nurse Practitioner Family
DX: S70.11XA Contusion of right thigh, initial encounter (principal); W19.XXXA Unspecified fall, initial encounter; Y92.009 Unspecified place in unspecified non-institutional (private) residence as the place of occurrence of the external cause; E11.9 Type 2 diabetes mellitus without complications; C34.31 Malignant neoplasm of lower lobe, right bronchus or lung; D64.9 Anemia, unspecified; L97.112 Non-pressure chronic ulcer of right thigh with fat layer exposed
CPT/HCPCS: 11042

== ENCOUNTER → 2021-02-06 05:00 | Outpatient (REF) | payer MEDICARE, SELFPAY ==
[2021-02-06 07:48] LABS: Hematocrit 30.7 % (37-47); Hemoglobin 9.7 g/dL (12.0-15.0); Mean Corp Hgb Conc 31.6 g/dL (32-36); Mean Corpuscular Hgb 29.8 pg (27.0-32.0); Mean Corpuscular Volume 94.5 fL (81-99); Mean Platelet Vol. 9.6 fl (6.2-12.0); Platelet Count 233 K/mm3 (150-450); RBC Distribution Width CV 12.8 % (11.6-14.6); RBC Distribution Width SD 44.3 fl (35.1-43.9); Red Blood Count 3.25 M/mm3 (4.2-5.4); White Blood Count 6.7 K/mm3 (4.4-11.0)
[2021-02-06 08:17] LABS: Hemoglobin A1c 8.1 % (3.8-5.6)
[2021-02-06 08:24] LABS: ALB/GLOB Ratio 0.5 RATIO (0.9-2.4); AST(SGOT) 20 U/L (15-37); Alanine Aminotransfer ALT/SGPT 27 U/L (13-56); Albumin, Serum 2.2 g/dL (3.2-5.0); Alkaline Phosphatase 110 U/L (45-117); Anion Gap 3 (5-15); BUN 36 mg/dL (7-18); BUN/Creat Ratio 27.9 RATIO (10-20); Calcium,Total 8.3 mg/dL (8.5-10.1); Chloride 111 mmol/L (98-107); Cholesterol 128 mg/dL (200); Creatinine, Serum 1.29 mg/dL (0.55-1.02); EST Glomerular Filtration Rate 42 mL/min (>60); Est Glom Filt Rate - Afr Amer 51 mL/min (>60); Globulin 4.1 g/dL (2.2-4.2); Glucose 103 mg/dL (74-106); High Density Lipoprotein 46 mg/dL; Potassium 4.9 mmol/L (3.5-5.1); Protein, Total 6.3 g/dL (6.4-8.2); Sodium Level 140 mmol/L (136-145); Triglycerides 46 mg/dL; Very Low Density Lipoprotein 9 mg/dL (5-40)
== END ==
PROVIDERS: PCP Internal Medicine; Visit Provider Family Medicine
DX: D64.9 Anemia, unspecified (principal); E11.9 Type 2 diabetes mellitus without complications; E78.5 Hyperlipidemia, unspecified
CPT/HCPCS: 36415; 80053; 80061; 83036; 85027

== ENCOUNTER 2021-02-24 10:25 | Inpatient (IN) | payer MEDICARE, SELFPAY ==
[2021-02-24] VITALS (17 sets, daily range): BP systolic 154–179; BP diastolic 75–101; PULSE 87–100; RESP 17–28; TEMP 36.3–37.2; O2SAT 87–97; BMI 29.1; BMI 28.0
--- NOTE | 2021-02-24 10:43 | EKG12_ITS ---
Test Reason : SOB Blood Pressure : / mmHG Vent. Rate : 089 BPM Atrial Rate : 089 BPM P-R Int : 152 ms QRS Dur : 092 ms QT Int : 390 ms P-R-T Axes : 065 -11 069 degrees QTc Int : 474 ms Normal sinus rhythm Nonspecific T wave abnormality Prolonged QT Abnormal ECG Confirmed by GRETCHEN LANZA, NAREN ([id number]), newspaper editor managing SERGEY SUBRAMANIAN ([id number]) on 02/26/2021 10:11:24 AM Referred By: Confirmed By:NAREN GODINEZ MD
--- NOTE | 2021-02-24 10:44 | EDS_ITS ---
HPI History of Present Illness Chief Complaint: Shortness of Breath Informant: patient Narrative Narrative: 80-year-old female presenting to the emergency department with dyspnea. Patient notes several day history of cough and worsening shortness of breath. She has oxygen at home as needed. She notes no cough is nonproductive. 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 She denies any fevers. She denies any sore throat, headache, or rhinorrhea. 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 Debility Depression Diabetes Dyspnea Fall as cause of accidental injury at home as place of occurrence Falls Heart failure with reduced left ventricular function Hemoglobin A1c greater than 9.0% High cholesterol History of stress test History of tobacco abuse Hoarseness Hyperlipidemia Hypertension Injury of omentum Insomnia Malignant neoplasm of right bronchus Muscle weakness (generalized) On home oxygen therapy Open wound of right thigh Paroxysmal atrial fibrillation Post-menopausal Recurrent falls Restless legs Seasonal allergic reaction Traumatic hematoma of right thigh Type 2 diabetes mellitus Type II diabetes mellitus Type II diabetes mellitus with manifestations Visual impairment Home Medications acetaminophen 325 mg capsule 650 mg PO Q6H PRN cap 08/09/20 [History Last Taken Unknown] albuterol sulfate 90 mcg/actuation aerosol inhaler 1 puff INHALATION Q4H PRN g 08/09/20 [History Last Taken Unknown] aluminum-mag hydroxide-simethicone 400 mg-400 mg-40 mg/5 mL oral susp 10 ml PO DAILY PRN ml 08/09/20 [History Last Taken Unknown] atorvastatin 40 mg tablet 40 mg PO QHS 08/09/20 [History Last Taken Unknown] cholecalciferol (vitamin D3) 25 mcg (1,000 unit) capsule 25 mcg PO DAILY 08/09/20 [History Last Taken Unknown] ferrous sulfate 325 mg (65 mg iron) capsule,extended release 325 mg PO DAILY cap 08/09/20 [History Last Taken Unknown] guaifenesin 1,200 mg tablet, extended release 12 hr 1,200 mg PO Q12H PRN 08/09/20 [History Last Taken Unknown] hydrocortisone 1 % topical cream 1 applic TOPICAL TID PRN 08/09/20 [History Last Taken Unknown] loperamide-simethicone 2 mg-125 mg tablet 1 tab PO DAILY PRN tab 08/09/20 [His tory Last Taken Unknown] losartan 100 mg tablet 100 mg PO DAILY 08/09/20 [History Last Taken Unknown] magnesium oxide 400 mg PO DAILY 08/09/20 [History Last Taken Unknown] metformin 1,000 mg tablet 500 mg PO BID 08/09/20 [History Last Taken Unknown] qouqsokwsmkc-jkiwxykp-eqxjtd tablet 1 tab PO DAILY 08/09/20 [History Last Taken Unknown] sodium chloride 0.65 % nasal spray aerosol 2 spray INTRANASAL Q2H PRN 08/09/20 [History Last Taken Unknown] standard wheelchair #1 ea 08/11/20 [Rx Last Taken Unknown] standard wheelchair 1 ea OTHER DAILY #1 device 08/11/20 [Rx Last Taken Unknown] blood pressure test kit-large #1 ea 08/16/20 [Rx Last Taken Unknown] verapamil 120 mg tablet 120 mg PO DAILY #30 tab 08/16/20 [Rx Last Taken Unknown] Boostrix Tdap 2.5 Lf unit-8 mcg-5 Lf/0.5 mL intramuscular syringe 0.5 ml IM ONCE #1 ml NS 08/24/20 [Clinic Last Taken Unknown] albuterol sulfate 2.5 mg INHALATION Q6H #180 ml 08/24/20 [Rx Last Taken Unknown] metoprolol tartrate 50 mg PO BID #60 tab 09/09/20 [Rx Last Taken Unknown] baclofen 10 mg tablet 10 mg PO BID PRN #60 tab 11/03/20 [Rx Last Taken Unknown] melatonin 5 mg capsule 5 mg PO QHS #90 cap 11/21/20 [Rx Last Taken Unknown] citalopram 40 mg tablet 40 mg PO DAILY #90 tab 11/24/20 [Rx Last Taken Unknown] pantoprazole 40 mg tablet,delayed release 40 mg PO DAILY #30 tab 01/10/21 [Rx Last Taken Unknown] Lactobacillus acidophilus [Probiotic] 10,000 mmu cells PO DAILY 02/24/21 [History Last Taken Unknown] cetirizine 10 mg PO DAILY 02/24/21 [History Last Taken Unknown] doxycycline hyclate 100 mg PO BID 02/24/21 [History Last Taken Unknown] insulin glargine [Lantus Solostar U-100 Insulin] 15 unit SUBCUT QHS 02/24/21 [History Last Taken Unknown] lidocaine 1 patch TOPICAL QHS 02/24/21 [History Last Taken Unknown] lorazepam 0.5 mg PO Q4H PRN 02/24/21 [History Last Taken Unknown] oxycodone 5 mg PO Q4H PRN 02/24/21 [History Last Taken Unknown] prednisone 40 mg PO DAILY 02/24/21 [History Last Taken Unknown] vitamins A,C,Q-xfvf-nmopdb [PreserVision AREDS] 1 tab PO BID 02/24/21 [History Last Taken Unknown] Allergy/AdvReac Type Severity Reaction Status Date / Time morphine AdvReac Severe Itching Verified 02/24/21 10:32 Penicillins AdvReac PT UNSURE Verified 02/24/21 10:32 OF REACTION Family History Mother Diabetes Heart disease Brother Cancer Prostate cancer Surgical History History of Social History household members: none housing: apartment number of children: 3 current occupational status: retired current occupational exposures/hazards: No pets and animals: No history of recent travel: Yes (From [place]) details: Moved to [facility] to be closer to family out of state: Yes out of country: No Smoking Status: Former smoker quit date: 07/24/76 pack-years: 4 Tobacco: How many years used: 7 second hand exposure: No alcohol intake: current details: 1 glass wine 4 times a year. Social drinker. 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: Matt seatbelt use: always do you feel safe at home: Yes ROS ROS ED Constitutional Constitutional ED: Denies chills, fever(s) or weight loss Eyes Eyes: Denies change in vision or diplopia ENT ENT ED: Denies ear pain, rhinorrhea or sore throat Cardiovascular Cardiovascular: Reports other Details: Bilateral lower extremity edema ; Denies chest pain, orthopnea, palpitations or racing heartbeat Respiratory/Chest Respiratory/Chest: Reports cough, dyspnea and dyspnea on exertion; Denies orthopnea Gastrointestinal Gastrointestinal: Denies abdominal pain, diarrhea, nausea or vomiting Genitourinary Genitourinary ED: Denies dysuria, hematuria or urinary frequency Musculoskeletal Musculoskeletal: Denies arthralgias or myalgias Integumentary Denies abscess or rash Neurologic Neurologic: Denies headache(s) or weakness Psychiatric Psychiatric: Denies anxiety, depression, suicidal ideation or suicidal thoughts Endocrine Endocrinology: Denies polydipsia, polyphagia or polyuria Allergic/Immunologic Allergic/Immunologic ED: Denies mouth swelling, tongue swelling or urticaria EXAM Physical Exam Const Vital Signs: 02/24/21 10:25 02/24/21 10:41 02/24/21 10:43 Temperature 97.4 F L 97.4 F L Temperature Source Temporal Oral Pulse Rate 98 92 Respiratory Rate 24 H 17 Respiratory Effort Short of Breath Respiratory Depth Normal Respiratory Pattern Normal Blood Pressure 179/101 H 179/101 H Blood Pressure Mean 127 127 Pulse Ox 90 93 Oxygen Delivery Method Room Air Nasal Cannula Room Air Oxygen Flow Rate (L/min) 2 02/24/21 12:32 02/24/21 12:33 02/24/21 13:12 Temperature Temperature Source Pulse Rate 88 87 Respiratory Rate 17 27 H Respiratory Effort Respiratory Depth Respiratory Pattern Blood Pressure 168/87 H 154/100 H Blood Pressure Mean 114 118 Pulse Ox 87 95 96 Oxygen Delivery Method Nasal Cannula Nasal Cannula Nasal Cannula Oxygen Flow Rate (L/min) 2 4 4 Positive well nourished and well developed General Appearance ED: well developed HEENT Reports normocephalic, head/scalp atraumatic, TM's clear and moist mucous membranes Negative for trauma Tympanic Membrane ED: Yes TM's clear Eyes PERRL and EOMs intact bilaterally Neck no lymphadenopathy, supple and no JVD Resp Resp Narrative: Moist cough. Tachypneic but not in distress Auscultation: rales and rhonchi Cardio regular rate, regular rhythm and no murmurs GI normal to inspection, nondistended, normoactive bowel sounds and non-tender Palpation: soft Back/Spine no CVA tenderness and normal ROM Extremity normal to inspection General Extremety ED: Negative for edema General Extremity: Negative for edema Neuro oriented x3 and CN's II-XII intact bilaterally Sensorium / Orientation: alert Motor Exam: strength 5/5 throughout Psych mental status grossly normal Mood & Affect: Negative for depressed or tearful Skin no rashes or lesions noted and no wounds MDM MDM MDM Narrative Medical decision making narrative: White count 8.6. Creatinine 1.35 with a BUN of 40. Troponin 55 beta natruretic peptide is 3407. CTA of the chest does not demonstrate any pulmonary embolism or obvious infiltrate. She does have worsening bronchogenic carcinoma. Patient received Lasix given the significant lower extremity edema. She has also received breathing treatments Solu-Medrol. When I listen to her lungs I hear mostly right-sided rhonchi and her cough is very moist. I am concerned about the potential of developing postobstructive pneumonia. 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 [place]. Recommend provide CAP coverage and obtain a viral panel. Lab Data Attestation: I reviewed the patient's lab results. Labs: Laboratory Results - last 24 hr 02/24/21 02/24/21 02/24/21 11:02 11:02 11:02 WBC 8.6 RBC 3.71 L Hgb 10.8 L Hct 33.9 L MCV 91.4 MCH 29.1 MCHC 31.9 L RDW Std Deviation 41.7 RDW Coeff of Arik 12.6 Plt Count 224 MPV 9.6 Immature Gran % (Auto) 0.200 Neut % (Auto) 78.1 H Lymph % (Auto) 6.5 L [place] % (Auto) 13.2 H Eos % (Auto) 1.5 Baso % (Auto) 0.5 Absolute Neuts (auto) 6.7 Absolute Lymphs (auto) 0.56 L Nucleated RBC % 0 Differential Comment SCANNED PT 13.1 INR 1.1 APTT 32.8 Sodium 137 Potassium 4.5 Chloride 104 Carbon Dioxide 27.0 Anion Gap 6 BUN 40 H Creatinine 1.35 H Estim Creat Clear Calc 31.63 Est GFR (MDRD) Af Amer 49 L Est GFR (MDRD) Non-Af 40 L BUN/Creatinine Ratio 29.6 H Glucose 201 H Calcium 8.7 Total Bilirubin 0.50 AST 28 ALT 27 Alkaline Phosphatase 109 Troponin I High Sens 55 H B-Natriuretic Peptide Total Protein 7.1 Albumin 2.6 L Globulin 4.5 H Albumin/Globulin Ratio 0.6 L 02/24/21 11:02 WBC RBC Hgb Hct MCV MCH MCHC RDW Std Deviation RDW Coeff of Arik Plt Count MPV Immature Gran % (Auto) Neut % (Auto) Lymph % (Auto) [place] % (Auto) Eos % (Auto) Baso % (Auto) Absolute Neuts (auto) Absolute Lymphs (auto) Nucleated RBC % Differential Comment PT INR APTT Sodium Potassium Chloride Carbon Dioxide Anion Gap BUN Creatinine Estim Creat Clear Calc Est GFR (MDRD) Af Amer Est GFR (MDRD) Non-Af BUN/Creatinine Ratio Glucose Calcium Total Bilirubin AST ALT Alkaline Phosphatase Troponin I High Sens B-Natriuretic Peptide 3407.7 H Total Protein Albumin Globulin Albumin/Globulin Ratio Radiography Diagnostic Testing: Clinical Impression(s) from Imaging Studies Chest X-Ray 02/24/21 11:20 IMPRESSION: No active disease. Electronically Signed: Reid Prado MD at 11:36 EST Tel , Service support , Chest CTA 02/24/21 12:[address]: [address] evidence of pulmonary embolism. 2. Worsening right lower lobe bronchogenic carcinoma. Electronically Signed: Reid Prado MD at 13:13 EST Tel , Service support , EKG Initial EKG: Attestation: I personally reviewed and interpreted this EKG as follows: Comments: Normal sinus rhythm with a ventricular rate of 89 bpm Discharge Plan Dx/Rx/DC Orders Clinical Impression: Congestive heart failure (CHF), Non-small cell lung cancer, Acute dyspnea Disposition Disposition: Acute Care Hospital [facility]
--- NOTE | 2021-02-24 11:20 | RAD_ITS ---
STUDY: X-RAY CHEST REASON FOR EXAM: Female, 80 years old. cough TECHNIQUE: Single AP portable view of the chest. COMPARISON: 09/05/2020 FINDINGS: The lungs are clear and expanded. There is no demonstrated pleural abnormality. There is moderate cardiac enlargement. Normal mediastinum and nilay. Normal visualized pulmonary arteries. Normal visualized aortic arch and descending thoracic aorta. Normal visualized thoracic spine. Normal visualized ribs, clavicles, and shoulders. There is no demonstrated abnormality of the visualized soft tissue structures of the upper abdomen. RAD/Chest 1 View (Portable) IMPRESSION: No active disease. Electronically Signed: Reid Prado MD at 11:36 EST Tel , Service support ,
[2021-02-24 11:25] LABS: Absolute Lymphocyte Count 0.56 X10^3/uL (0.83-4.51); Absolute Neutrophil Count 6.7 X10^3/uL (2.0-7.7); Basophil# 0.04 X10^3/uL; Basophil% 0.5 % (0-1); Eosinophil# 0.13 X10^3/uL; Eosinophils% 1.5 % (0-5); Hematocrit 33.9 % (37-47); Hemoglobin 10.8 g/dL (12.0-15.0); Lymphocyte # 0.56 X10^3/ul (0.83-4.51); Lymphocyte % 6.5 % (19-41); Mean Corp Hgb Conc 31.9 g/dL (32-36); Mean Corpuscular Hgb 29.1 pg (27.0-32.0); Mean Corpuscular Volume 91.4 fL (81-99); Mean Platelet Vol. 9.6 fl (6.2-12.0); Monocyte# 1.14 X10^3/uL; Monocyte% 13.2 % (0-10); NRBC Flagged by Analyzer 0 % (0-5); Neutrophil # 6.74 X10^3/uL (2.7-7.7); Neutrophil % 78.1 % (47-70); POSITIVE DIFFERENTIAL YES; Platelet Count 224 K/mm3 (150-450); RBC Distribution Width CV 12.6 % (11.6-14.6); RBC Distribution Width SD 41.7 fl (35.1-43.9); Red Blood Count 3.71 M/mm3 (4.2-5.4); White Blood Count 8.6 K/mm3 (4.4-11.0)
[2021-02-24 11:34] LABS: International Normalized Ratio 1.1; Prothrombin Time (Protime)PT. 13.1 SECONDS (11.7-14.9)
[2021-02-24 11:35] LABS: Partial Thromboplast Time 32.8 Seconds (24.1-36.2)
[2021-02-24] MEDS: LORazepam 0.5 MG Tablet PO (11:36)
[2021-02-24 11:40] LABS: ALB/GLOB Ratio 0.6 RATIO (0.9-2.4); AST(SGOT) 28 U/L (15-37); Alanine Aminotransfer ALT/SGPT 27 U/L (13-56); Albumin, Serum 2.6 g/dL (3.2-5.0); Alkaline Phosphatase 109 U/L (45-117); Anion Gap 6 (5-15); BUN 40 mg/dL (7-18); BUN/Creat Ratio 29.6 RATIO (10-20); Calcium,Total 8.7 mg/dL (8.5-10.1); Chloride 104 mmol/L (98-107); Creatinine, Serum 1.35 mg/dL (0.55-1.02); EST Glomerular Filtration Rate 40 mL/min (>60); Est Glom Filt Rate - Afr Amer 49 mL/min (>60); Estimated Creatinine Clearance 31.63 ml/min; Globulin 4.5 g/dL (2.2-4.2); Glucose 201 mg/dL (74-106); Potassium 4.5 mmol/L (3.5-5.1); Protein, Total 7.1 g/dL (6.4-8.2); Sodium Level 137 mmol/L (136-145); Troponin-I HS 55 pg/mL (3.0-54.0)
[2021-02-24 12:10] LABS: Differential Indicated SCAN CRITERIA MET
[2021-02-24 12:11] LABS: Differential Comment SCANNED
--- NOTE | 2021-02-24 12:15 | CT_ITS ---
STUDY: CTA CHEST REASON FOR EXAM: Female, 80 years old. pulmonary embolism RADIATION DOSAGE (If Supplied By Facility): CTDIvol = ( 15.64 ) mGy, DLP = ( 553.04 ) mGycm TECHNIQUE: The examination was performed with the intravenous administration of IV 100mL Isovue-370. Post-processing of the angiographic images was performed, with multiplanar reformation and 3D reconstruction. Individualized dose optimization techniques were used for this CT. COMPARISON: 08/16/2020 FINDINGS: Normal enhancement of the main pulmonary artery and right and left pulmonary arteries. Normal enhancement of the bilateral peripheral pulmonary arteries. There is no demonstrated pulmonary embolism. Normal thoracic aorta and visualized great vessels. There is no demonstrated aortic dissection. Normal heart and pericardium. Normal mediastinum. Normal hilar regions. Normal visualized trachea and bronchi. The lungs are well expanded. Mild emphysema. Interval increase in the size of the mass in the right lower lobe measuring 3.8 x 5.5 cm consistent with known bronchogenic carcinoma. Several small satellite nodules in the right lower lobe. Normal pleura. Normal chest wall structures. Chronic severe compression fracture of T12. Normal visualized upper abdomen. CT/CTA Chest W/WO Contrast IMPRESSION: 1. No CT evidence of pulmonary embolism. 2. Worsening right lower lobe bronchogenic carcinoma. Electronically Signed: Reid Prado MD at 13:13 EST Tel , Service support ,
[2021-02-24] MEDS: Ipratropium/Albuterol Sulfate 3 ML AMPUL.NEB INHALATION ×2 (13:41→19:58)
--- NOTE | 2021-02-24 13:48 | HP.PCM_ITS ---
HPI - General General Date of Admission: 02/24/21 HPI Narrative PAPI RANDHAWA, is a 80 F who presents to the ED with dyspnea that has been worsening over the past several days as well as a nonproductive cough. She does not have any fevers or chills. She is from the [place] [facility] and does use oxygen as needed. Her lower extremity edema has been swelling more significantly but she does not know if she is taking Lasix right now. The patient has history of lung cancer of the right lobe diabetes and congestive heart failure with depressed ejection fraction to 40%. She is aware of her lung cancer but was offered chemotherapy however she held off because she did not know what to do about the side effects at this time is not pursuing any treatment. She has no GI issues and has a normal appetite without diarrhea or constipation. She is not an ETOH user, or tobacco user. She did use it in the past. When patient arrived she had a normal white count 10.3, chest x-ray with some congestion however no signs of lobar pneumonia. CT PE was negative for embolism and she received antibiotics with 125 Solu-Medrol and breathing treatment and did feel improved after breathing treatment. BNP of 3407 is noteworthy, comparing to her previous values of 961 in August of 2020. 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 Debility Depression Diabetes Dyspnea Fall as cause of accidental injury at home as place of occurrence Falls Heart failure with reduced left ventricular function Hemoglobin A1c greater than 9.0% High cholesterol History of stress test History of tobacco abuse Hoarseness Hyperlipidemia Hypertension Injury of omentum Insomnia Malignant neoplasm of right bronchus Muscle weakness (generalized) On home oxygen therapy Open wound of right thigh Paroxysmal atrial fibrillation Post-menopausal Recurrent falls Restless legs Seasonal allergic reaction Traumatic hematoma of right thigh Type 2 diabetes mellitus Type II diabetes mellitus Type II diabetes mellitus with manifestations Visual impairment Home Medications acetaminophen 325 mg capsule 650 mg PO Q6H PRN cap 08/09/20 [History Last Taken Unknown] albuterol sulfate 90 mcg/actuation aerosol inhaler 1 puff INHALATION Q4H PRN g 08/09/20 [History Last Taken Unknown] aluminum-mag hydroxide-simethicone 400 mg-400 mg-40 mg/5 mL oral susp 10 ml PO DAILY PRN ml 08/09/20 [History Last Taken Unknown] atorvastatin 40 mg tablet 40 mg PO QHS 08/09/20 [History Last Taken Unknown] cholecalciferol (vitamin D3) 25 mcg (1,000 unit) capsule 25 mcg PO DAILY 08/09/20 [History Last Taken Unknown] ferrous sulfate 325 mg (65 mg iron) capsule,extended release 325 mg PO DAILY cap 08/09/20 [History Last Taken Unknown] guaifenesin 1,200 mg tablet, extended release 12 hr 1,200 mg PO Q12H PRN 08/09/20 [History Last Taken Unknown] hydrocortisone 1 % topical cream 1 applic TOPICAL TID PRN 08/09/20 [History Last Taken Unknown] loperamide-simethicone 2 mg-125 mg tablet 1 tab PO DAILY PRN tab 08/09/20 [History Last Taken Unknown] losartan 100 mg tablet 100 mg PO DAILY 08/09/20 [History Last Taken Unknown] magnesium oxide 400 mg PO DAILY 08/09/20 [History Last Taken Unknown] metformin 1,000 mg tablet 500 mg PO BID 08/09/20 [History Last Taken Unknown] malqzzlnqrmv-ytmdbtie-nnczvl tablet 1 tab PO DAILY 08/09/20 [History Last Taken Unknown] sodium chloride 0.65 % nasal spray aerosol 2 spray INTRANASAL Q2H PRN 08/09/20 [History Last Taken Unknown] standard wheelchair #1 ea 08/11/20 [Rx Last Taken Unknown] standard wheelchair 1 ea OTHER DAILY #1 device 08/11/20 [Rx Last Taken Unknown] blood pressure test kit-large #1 ea 08/16/20 [Rx Last Taken Unknown] verapamil 120 mg tablet 120 mg PO DAILY #30 tab 08/16/20 [Rx Last Taken Unknown] Boostrix Tdap 2.5 Lf unit-8 mcg-5 Lf/0.5 mL intramuscular syringe 0.5 ml IM ONCE #1 ml NS 08/24/20 [Clinic Last Taken Unknown] albuterol sulfate 2.5 mg INHALATION Q6H #180 ml 08/24/20 [Rx Last Taken Unknown] metoprolol tartrate 50 mg PO BID #60 tab 09/09/20 [Rx Last Taken Unknown] baclofen 10 mg tablet 10 mg PO BID PRN #60 tab 11/03/20 [Rx Last Taken Unknown] melatonin 5 mg capsule 5 mg PO QHS #90 cap 11/21/20 [Rx Last Taken Unknown] citalopram 40 mg tablet 40 mg PO DAILY #90 tab 11/24/20 [Rx Last Taken Unknown] pantoprazole 40 mg tablet,delayed release 40 mg PO DAILY #30 tab 01/10/21 [Rx Last Taken Unknown] Lactobacillus acidophilus [Probiotic] 10,000 mmu cells PO DAILY 02/24/21 [History Last Taken Unknown] cetirizine 10 mg PO DAILY 02/24/21 [History Last Taken Unknown] doxycycline hyclate 100 mg PO BID 02/24/21 [History Last Taken Unknown] insulin glargine [Lantus Solostar U-100 Insulin] 15 unit SUBCUT QHS 02/24/21 [History Last Taken Unknown] lidocaine 1 patch TOPICAL QHS 02/24/21 [History Last Taken Unknown] lorazepam 0.5 mg PO Q4H PRN 02/24/21 [History Last Taken Unknown] oxycodone 5 mg PO Q4H PRN 02/24/21 [History Last Taken Unknown] prednisone 40 mg PO DAILY 02/24/21 [History Last Taken Unknown] vitamins A,C,D-uife-kleaqv [PreserVision AREDS] 1 tab PO BID 02/24/21 [History Last Taken Unknown] Allergy/AdvReac Type Severity Reaction Status Date / Time morphine AdvReac Severe Itching Verified 02/24/21 10:32 Penicillins AdvReac PT UNSURE Verified 02/24/21 10:32 OF REACTION Family History Mother Diabetes Heart disease Brother Cancer Prostate cancer Surgical History History of Social History (Updated 02/24/21 @ 15:15 by Talya Bradley) household members: none housing: assisted living facility number of children: 3 current occupational status: retired current occupational exposures/hazards: No pets and animals: No history of recent travel: Yes (From [place]) details: Moved to [facility] to be closer to family out of state: Yes out of country: No Smoking Status: Former smoker quit date: 07/24/76 pack-years: 4 Tobacco: How many years used: 7 second hand exposure: No alcohol intake: current details: 1 glass wine 4 times a year. Social drinker. 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/yazidism: Restorationism seatbelt use: always do you feel safe at home: Yes ROS Constitutional Constitutional: Denies fever(s) ENT HEENT: Denies dysphagia or hearing loss Cardiovascular Cardiovascular: Denies abdominal pain or chest pain Respiratory/Chest Respiratory/Chest: Reports difficulty clearing secretions, dry cough and dyspnea on exertion Gastrointestinal Gastrointestinal: Denies constipation or diarrhea Musculoskeletal Musculoskeletal: Denies joint pain Integumentary Integumentary: Reports as per HPI Neurologic Neurologic: Denies tingling Hematologic/Lymphatic Hematologic/Lymphatic: Denies easy bruising Vital Signs Vital Signs Vital Signs: 02/24/21 10:25 02/24/21 10:41 02/24/21 10:43 Temperature 97.4 F L 97.4 F L Temperature Source Temporal Oral Pulse Rate 98 92 Respiratory Rate 24 H 17 Respiratory Effort Short of Breath Respiratory Depth Normal Respiratory Pattern Normal Blood Pressure 179/101 H 179/101 H Blood Pressure Mean 127 127 Pulse Ox 90 93 Oxygen Delivery Method Room Air Nasal Cannula Room Air Oxygen Flow Rate (L/min) 2 02/24/21 12:32 02/24/21 12:33 02/24/21 13:12 Temperature Temperature Source Pulse Rate 88 87 Respiratory Rate 17 27 H Respiratory Effort Respiratory Depth Respiratory Pattern Blood Pressure 168/87 H 154/100 H Blood Pressure Mean 114 118 Pulse Ox 87 95 96 Oxygen Delivery Method Nasal Cannula Nasal Cannula Nasal Cannula Oxygen Flow Rate (L/min) 2 4 4 02/24/21 13:41 Temperature Temperature Source Pulse Rate 87 Respiratory Rate 19 H Respiratory Effort Respiratory Depth Respiratory Pattern Tachypnea Blood Pressure Blood Pressure Mean Pulse Ox Oxygen Delivery Method Oxygen Flow Rate (L/min) Weight Weight: 180 lb 8.937 oz Body Mass Index (BMI) 29.1 Physical Exam Const alert and well nourished General Appearance: cooperative and well developed Orientation / Consciousness: awake HEENT normocephalic and head/scalp atraumatic Head and Scalp: normal to inspection and normocephalic Face and Sinus: normal facial exam and face symmetric Eyes EOMs intact bilaterally and no scleral icterus Resp normal air movement Resp Narrative: Wet cough without sputum production. She has b/l wheezing and congestion, slightly increased in right side compared to left side. Effort and Inspection: Negative for respiratory distress, actively coughing or uses accessory muscles Cardio regular rate, regular rhythm, S1 normal heart sound and S2 normal heart sound Rate: regular rate GI soft to palpation Inspection: Negative for abdominal distention Auscultation: normoactive bowel sounds Palpation: soft; Negative for guarding Extremity no pedal edema Extremity Narrative: 2 + pitting edema in lower extremities to knees Skin no rashes or lesions noted Skin Narrative: Dry skin Hair: normal Neuro Speech: speech normal Psych Speech: normal speech Thought Content: normal thought content Insight: fair Results Lab / Micro Data Result Diagrams: 02/24/21 11:02 02/24/21 11:02 Labs: Laboratory Results - last 24 hr 02/24/21 11:02: WBC 8.6, RBC 3.71 L, Hgb 10.8 L, Hct 33.9 L, MCV 91.4, MCH 29.1, MCHC 31.9 L, RDW Std Deviation 41.7, RDW Coeff of Arik 12.6, Plt Count 224, MPV 9.6, Immature Gran % (Auto) 0.200, Neut % (Auto) 78.1 H, Lymph % (Auto) 6.5 L, [place] % (Auto) 13.2 H, Eos % (Auto) 1.5, Baso % (Auto) 0.5, Absolute Neuts (auto) 6.7, Absolute Lymphs (auto) 0.56 L, Nucleated RBC % 0, Differential Comment SCANNED 02/24/21 11:02: PT 13.1, INR 1.1, APTT 32.8 02/24/21 11:02: Sodium 137, Potassium 4.5, Chloride 104, Carbon Dioxide 27.0, Anion Gap 6, BUN 40 H, Creatinine 1.35 H, Estim Creat Clear Calc 31.63, Est GFR (MDRD) Af Amer 49 L, Est GFR (MDRD) Non-Af 40 L, BUN/Creatinine Ratio 29.6 H, Glucose 201 H, Calcium 8.7, Total Bilirubin 0.50, AST 28, ALT 27, Alkaline Phosphatase 109, Troponin I High Sens 55 H, Total Protein 7.1, Albumin 2.6 L, Globulin 4.5 H, Albumin/Globulin Ratio 0.6 L 02/24/21 11:02: B-Natriuretic Peptide 3407.7 H Micro: Microbiology 02/24/21 10:49 Mucosa - Nasopharyngeal Influenza Types A,B Direct FA (FELIPA) - Final 02/24/21 10:49 Nasal Secretion SARS-CoV-2 Antigen (Rapid) - Final Radiology Impression Chest X-Ray 02/24/21 11:20 IMPRESSION: No active disease. Electronically Signed: Reid Prado MD at 11:36 EST Tel , Service support , Chest CTA 02/24/21 12:[address]: 1[address] evidence of pulmonary embolism. 2. Worsening right lower lobe bronchogenic carcinoma. Electronically Signed: Reid Prado MD at 13:13 EST Tel , Service support , Assessment & Plan Assessment/Plan (1) SOB (shortness of breath): (2) Diabetes: (3) Congestive heart failure (CHF): (4) Hypertension: PLAN: Who presents with is a 80-year-old who has history of CHF presents with worsening fluid overload and admitted for shortness of breath with acute on chronic hypoxic respiratory failure Based off lack of fevers white count and no lower consolidation on x-ray most likely etiology is volume overload. BNP nearly quadrupled from August 2020. CHF - 80 lasix today, 40 IV BID lasix & monitor UOP (known CKD) - Strict I&O - Fluid restriction to 1.5 liters a day. - Daily weights - Low sodium - Hypertensive, resume 50 BID home metoprolol - EF 40% past summer on ECHO, with global hypokinesis Post obstructive PNA - Azithromcythin and Rocephin, taper off based on clinical course in next 1-2 days. - FLU neg - Covid rapid Negative - No recent sick contacts - Blood cultures previously ordered in ED, f/u blood culture results Asthma - Continue duonebs q4 hr - 125 solumedrol today, decide tomorrow based on clinical course regarding ongoing steroid therapy. Afib - On previous documentation, son says patient was diagnosed with afib in June 2020 on previous admission - Not on AC - had hematoma in past. - No exacerbation of afib. Rate is controlled. Diabetes - 15 LA insulin at night - SSI - Glucose checks x 4 times per day. HTN - Continue home losartan, continue BB Diet: Carb controlled, low salt DVT: Lovenox 40 mg Code status was discussed in person with the patient, and the patient is DNR, DNI.
[2021-02-24] MEDS: Furosemide 100 MG/10 ML Vial 80 MG IV (14:32)
[2021-02-24] MEDS: MethylPREDNISolone 125 MG/2 ML Vial IV (14:33)
[2021-02-24] MEDS: Ceftriaxone 1 GM/50 ML BAG IV (14:42)
[2021-02-24] MEDS: Acetaminophen 325 MG Tablet 650 MG PO (15:57)
[2021-02-24] MEDS: guaiFENesin 1,200 MG Tablet 1200 MG PO (15:57)
[2021-02-24 16:06] LABS: Bedside Glucose 232 mg/dL (70-110)
[2021-02-24] MEDS: Insulin Lispro 100 UNIT/ML INSULN.PEN SC ×2 (18:25→20:33)
[2021-02-24] MEDS: Atorvastatin Calcium 40 MG Tablet PO (20:32)
[2021-02-24] MEDS: Metoprolol Tartrate 50 MG Tablet PO (20:32)
[2021-02-24 20:40] LABS: Bedside Glucose 380 mg/dL (70-110)
[2021-02-25] VITALS (32 sets, daily range): BP systolic 108–170; BP diastolic 74–115; PULSE 85–137; RESP 18–29; TEMP 36.4–37.1; O2SAT 94–99
--- NOTE | 2021-02-25 03:23 | EKG12_ITS ---
Test Reason : DYSRHYTHMIA Blood Pressure : / mmHG Vent. Rate : 126 BPM Atrial Rate : 252 BPM P-R Int : 000 ms QRS Dur : 094 ms QT Int : 182 ms P-R-T Axes : 000 -24 154 degrees QTc Int : 263 ms Atrial flutter with variable A-V block Nonspecific ST and T wave abnormality Abnormal ECG When compared with ECG of 24-FEB-2021 10:56, MANUAL COMPARISON REQUIRED, DATA IS UNCONFIRMED Confirmed by GRETCHEN LANZA, NAREN ([id number]), legal editor SERGEY SUBRAMANIAN ([id number]) on 02/26/2021 2:08:02 PM Referred By: ALISSA Confirmed By:NAREN GODINEZ MD
[2021-02-25] MEDS: Furosemide 40 MG/4 ML Vial IV (05:37)
[2021-02-25] MEDS: 0.9% Saline Lock 10 ML Syringe IV (05:37)
[2021-02-25] MEDS: Insulin Lispro 100 UNIT/ML INSULN.PEN SC ×4 (06:38→20:28)
[2021-02-25 06:45] LABS: Absolute Lymphocyte Count 0.61 X10^3/uL (0.83-4.51); Absolute Neutrophil Count 4.3 X10^3/uL (2.0-7.7); Basophil# 0.01 X10^3/uL; Basophil% 0.2 % (0-1); Hematocrit 34.4 % (37-47); Hemoglobin 11.2 g/dL (12.0-15.0); Lymphocyte # 0.61 X10^3/ul (0.83-4.51); Lymphocyte % 10.9 % (19-41); Mean Corp Hgb Conc 32.6 g/dL (32-36); Mean Corpuscular Hgb 29.1 pg (27.0-32.0); Mean Corpuscular Volume 89.4 fL (81-99); Mean Platelet Vol. 9.7 fl (6.2-12.0); Monocyte# 0.63 X10^3/uL; Monocyte% 11.3 % (0-10); NRBC Flagged by Analyzer 0 % (0-5); Neutrophil # 4.33 X10^3/uL (2.7-7.7); Neutrophil % 77.2 % (47-70); Platelet Count 231 K/mm3 (150-450); RBC Distribution Width CV 12.3 % (11.6-14.6); RBC Distribution Width SD 40.4 fl (35.1-43.9); Red Blood Count 3.85 M/mm3 (4.2-5.4); White Blood Count 5.6 K/mm3 (4.4-11.0)
[2021-02-25 06:46] LABS: Bedside Glucose 293 mg/dL (70-110)
[2021-02-25] MEDS: Ipratropium/Albuterol Sulfate 3 ML AMPUL.NEB INHALATION ×3 (07:08→14:48)
[2021-02-25 07:21] LABS: Anion Gap 10 (5-15); BUN 46 mg/dL (7-18); BUN/Creat Ratio 31.3 RATIO (10-20); Calcium,Total 8.7 mg/dL (8.5-10.1); Chloride 102 mmol/L (98-107); Creatinine, Serum 1.47 mg/dL (0.55-1.02); EST Glomerular Filtration Rate 36 mL/min (>60); Est Glom Filt Rate - Afr Amer 44 mL/min (>60); Estimated Creatinine Clearance 29.05 ml/min; Glucose 272 mg/dL (74-106); Magnesium 2.4 mg/dL (1.6-2.6); Phosphorus 4.8 mg/dL (2.5-4.9); Potassium 4.1 mmol/L (3.5-5.1); Sodium Level 136 mmol/L (136-145)
[2021-02-25] MEDS: Metoprolol Tartrate 50 MG Tablet PO ×2 (08:09→20:29)
[2021-02-25] MEDS: Cholecalciferol (VIT D3) 25 MCG TABLET (1,000 UNITS) PO (08:10)
[2021-02-25] MEDS: Pantoprazole Sodium 40 MG Tablet PO (08:11)
[2021-02-25] MEDS: Losartan Potassium 100 MG Tablet PO (08:12)
[2021-02-25] MEDS: Enoxaparin 40 MG/0.4 ML Syringe SC (08:12)
[2021-02-25] MEDS: Citalopram 40 MG TABLET PO (08:12)
[2021-02-25] MEDS: Magnesium Chloride 64 MG Delay Rel.Tablet 128 MG PO (08:12)
[2021-02-25] MEDS: guaiFENesin 1,200 MG Tablet 1200 MG PO ×2 (08:24→22:28)
[2021-02-25 11:45] LABS: Bedside Glucose 361 mg/dL (70-110)
[2021-02-25] MEDS: Metoprolol Tartrate 5 MG/5 ML Vial IV (13:15)
--- NOTE | 2021-02-25 15:12 | PCM.PN.HOSP ---
Subjective Subjective Breathing better. Objective Data Objective Data Vital Signs: Vital Signs Temp Pulse Resp BP Pulse Ox 36.7 C 124 H 22 H 139/91 H 95 02/25/21 14:44 02/25/21 14:44 02/25/21 14:44 02/25/21 14:44 02/25/21 14:44 Oxygen Flow Rate (L/min) 2 Oxygen Delivery Method Nasal Cannula Weight: 77.9 kg Body Mass Index (BMI) 28.0 Intake & Output: Intake and Output for Last 24 Hours 02/23/21 02/24/21 02/25/21 23:59 23:59 23:59 Intake Total 405 / 405 305 / 305 Output Total 700 / 700 Balance 405 / 405 -395 / -395 Lab / Micro Data Result Diagrams: 02/25/21 06:17 02/25/21 06:17 Labs: Laboratory Results - last 24 hr 02/24/21 16:01: POC Glucose 232 H 02/24/21 20:28: POC Glucose 380 H 02/25/21 06:17: WBC 5.6, RBC 3.85 L, Hgb 11.2 L, Hct 34.4 L, MCV 89.4, MCH 29.1, MCHC 32.6, RDW Std Deviation 40.4, RDW Coeff of Arik 12.3, Plt Count 231, MPV 9.7, Immature Gran % (Auto) 0.400, Neut % (Auto) 77.2 H, Lymph % (Auto) 10.9 L, [place] % (Auto) 11.3 H, Eos % (Auto) 0.0, Baso % (Auto) 0.2, Absolute Neuts (auto) 4.3, Absolute Lymphs (auto) 0.61 L, Nucleated RBC % 0 02/25/21 06:17: Sodium 136, Potassium 4.1, Chloride 102, Carbon Dioxide 24.0, Anion Gap 10, BUN 46 H, Creatinine 1.47 H, Estim Creat Clear Calc 29.05, Est GFR (MDRD) Af Amer 44 L, Est GFR (MDRD) Non-Af 36 L, BUN/Creatinine Ratio 31.3 H, Glucose 272 H, Calcium 8.7, Phosphorus 4.8, Magnesium 2.4 02/25/21 06:37: POC Glucose 293 H 02/25/21 11:32: POC Glucose 361 H Micro: Microbiology 02/24/21 13:33 Mucosa - Nasopharyngeal Respiratory Panel (PCR) - Final RSV B 02/24/21 10:49 Mucosa - Nasopharyngeal Influenza Types A,B Direct FA (FELIPA) - Final 02/24/21 10:49 Nasal Secretion SARS-CoV-2 Antigen (Rapid) - Final Physical Exam Const alert HEENT Head and Scalp: normocephalic Resp normal respiratory effort and no retractions Cardio regular rate, regular rhythm, S1 normal heart sound and S2 normal heart sound GI normal to inspection, nondistended, normoactive bowel sounds, soft to palpation, non-tender and non-distended Extremity normal to inspection Assessment & Plan Assessment/Plan (1) RSV bronchitis: PLAN: 1. RSV bronchitis supportive mgmt add prednisone on empiric abx 2. tachycardia refractory to metoprolol PO and IV DC BDs and observe 3. HFrEF no clinical CHF, therefore ruled out BNP elevated but no clinical CHF 4. NSCLC larger follow up with med and rad onc 5. VTE prophylaxis: LMWH Charges/Coding Visit Charges Inpatient E&M: 47827 Subs Hosp L2
[2021-02-25] MEDS: predniSONE 20 MG Tablet 40 MG PO (16:38)
[2021-02-25] MEDS: Benzonatate 100 MG Capsule PO ×2 (16:38→22:28)
[2021-02-25 16:51] LABS: Bedside Glucose 259 mg/dL (70-110)
[2021-02-25] MEDS: dilTIAZem 25 MG/5 ML Vial 10 MG IV BOLUS ×2 (17:15→18:46)
--- NOTE | 2021-02-25 18:42 | NURSING ---
This RN assisted and oversaw the administration of cardizem gtt and monitoring of patient with floor RN.
--- NOTE | 2021-02-25 19:52 | NURSING ---
Patient took of BP cuff with RN not knowing, so educated about keeping on and cardizem drip. Verbalized understanding.
[2021-02-25] MEDS: Atorvastatin Calcium 40 MG Tablet PO (20:29)
[2021-02-25 20:40] LABS: Bedside Glucose 342 mg/dL (70-110)
[2021-02-26] VITALS (42 sets, daily range): BP systolic 101–166; BP diastolic 67–124; PULSE 19–130; RESP 16–37; TEMP 36.4–36.8; O2SAT 92–99
[2021-02-26] MEDS: Metoprolol Tartrate 5 MG/5 ML Vial IV ×3 (01:21→16:37)
[2021-02-26] MEDS: 0.9% Saline Lock 10 ML Syringe IV (01:21)
--- NOTE | 2021-02-26 01:24 | PCS.PANDOC ---
PANDEMIC DOCUMENTATION INITIATED: Date: 11/06/2020 Time: 190
[2021-02-26] MEDS: LORazepam 0.5 MG Tablet PO ×2 (02:29→16:36)
--- NOTE | 2021-02-26 03:51 | EKG12_ITS ---
Test Reason : AFIB Blood Pressure : / mmHG Vent. Rate : 123 BPM Atrial Rate : 123 BPM P-R Int : 274 ms QRS Dur : 096 ms QT Int : 420 ms P-R-T Axes : 028 -22 269 degrees QTc Int : 601 ms Atrial flutter with 2 to [address] abnormality, possible inferior subendocardial injury Abnormal ECG No previous ECGs available Confirmed by GRETCHEN LANZA, NAREN ([id number]), video news editor SERGEY SUBRAMANIAN ([id number]) on 02/27/2021 10:08:18 AM Referred By: ALISSA Confirmed By:NAREN GODINEZ MD
--- NOTE | 2021-02-26 04:35 | PCM.HOSP.N ---
Hospitalist Note Nurse called me for patient tachycardia. Twelve-lead EKG shows irregular QRS complexes but not in a pattern of atrial flutter. There is no negative QRS complexes sawtooth pattern inferior leads. It seems atrial tachycardia with variable block. Cardiology is consulted. Heart rate is not controlled on Cardizem drip 15 mg/h and intermittent metoprolol 5 mg IV every 6 hourly. Cardizem discontinued and started on amiodarone bolus and then infusion drip. BMP, magnesium and phosphorus stat. Picked Edge Sewing Machine Operator is consulted. Discussed with the nursing staff.
[2021-02-26 06:23] LABS: Absolute Lymphocyte Count 0.59 X10^3/uL (0.83-4.51); Basophil# 0.01 X10^3/uL; Basophil% 0.1 % (0-1); Hematocrit 31.1 % (37-47); Hemoglobin 10.2 g/dL (12.0-15.0); Lymphocyte # 0.59 X10^3/ul (0.83-4.51); Lymphocyte % 5.7 % (19-41); Mean Corp Hgb Conc 32.8 g/dL (32-36); Mean Corpuscular Hgb 29.1 pg (27.0-32.0); Mean Corpuscular Volume 88.9 fL (81-99); Monocyte# 0.69 X10^3/uL; Monocyte% 6.7 % (0-10); NRBC Flagged by Analyzer 0 % (0-5); Neutrophil # 9.01 X10^3/uL (2.7-7.7); Neutrophil % 86.9 % (47-70); POSITIVE DIFFERENTIAL YES; Platelet Count 253 K/mm3 (150-450); RBC Distribution Width CV 12.7 % (11.6-14.6); RBC Distribution Width SD 41.1 fl (35.1-43.9); White Blood Count 10.4 K/mm3 (4.4-11.0)
[2021-02-26] MEDS: Insulin Lispro 100 UNIT/ML INSULN.PEN SC ×4 (06:37→20:50)
[2021-02-26 06:41] LABS: Differential Indicated SCAN CRITERIA MET
[2021-02-26 06:45] LABS: Bedside Glucose 396 mg/dL (70-110)
[2021-02-26 07:13] LABS: Anion Gap 9 (5-15); BUN 66 mg/dL (7-18); BUN/Creat Ratio 30.8 RATIO (10-20); Calcium,Total 8.4 mg/dL (8.5-10.1); Chloride 99 mmol/L (98-107); Creatinine, Serum 2.14 mg/dL (0.55-1.02); EST Glomerular Filtration Rate 24 mL/min (>60); Est Glom Filt Rate - Afr Amer 29 mL/min (>60); Estimated Creatinine Clearance 19.96 ml/min; Glucose 387 mg/dL (74-106); Magnesium 2.4 mg/dL (1.6-2.6); Phosphorus 4.5 mg/dL (2.5-4.9); Potassium 4.5 mmol/L (3.5-5.1); Sodium Level 134 mmol/L (136-145)
[2021-02-26] MEDS: Benzonatate 100 MG Capsule PO ×2 (08:02→20:50)
[2021-02-26] MEDS: predniSONE 20 MG Tablet 40 MG PO (08:02)
[2021-02-26] MEDS: Acetaminophen 325 MG Tablet 650 MG PO ×2 (08:02→16:36)
[2021-02-26] MEDS: Metoprolol Tartrate 50 MG Tablet PO ×2 (09:24→20:50)
[2021-02-26] MEDS: Enoxaparin 40 MG/0.4 ML Syringe SC (09:24)
[2021-02-26] MEDS: Cholecalciferol (VIT D3) 25 MCG TABLET (1,000 UNITS) PO (09:25)
[2021-02-26] MEDS: Pantoprazole Sodium 40 MG Tablet PO (09:25)
[2021-02-26] MEDS: Losartan Potassium 100 MG Tablet PO (09:25)
[2021-02-26] MEDS: Magnesium Chloride 64 MG Delay Rel.Tablet 128 MG PO (09:25)
[2021-02-26] MEDS: Furosemide 40 MG Tablet PO (09:30)
[2021-02-26] MEDS: Citalopram 20 MG Tablet PO (09:30)
--- NOTE | 2021-02-26 09:46 | PCM.CONS.C ---
Assessment & Plan Assessment/Plan (1) Paroxysmal atrial flutter: PLAN: Patient has a history of paroxysmal atrial flutter. At this time I would recommend that we attempt to control her ventricular response rate with intravenous Cardizem and diltiazem. The above is likely secondary to the progression of the malignancy. I would also recommend that we obtain an echocardiogram to assess the ventricular function. I am hesitant to anticoagulate her at this particular time. (2) Congestive heart failure (CHF): PLAN: She does have evidence of congestive heart failure. I will like to obtain an echocardiogram to assess her ventricular function and depending on the findings further recommendations made. Thank you for allowing me to participate in the care of your patient. Please don't hesitate to call if any issues arise. HPI Consult Data Date of Consult: 02/26/21 HPI Narrative HPI Narrative: PAPI RANDHAWA, is a 80 F who presents to the ED with dyspnea that has been worsening over the past several days as well as a nonproductive cough. She does have a history of lung carcinoma and was offered chemotherapy but declined. She is currently not pursuing any treatment. She is in the retirement. She denied any fever or chills or paroxysmal nocturnal dyspnea but she did have a cough. She has had no GI issues. She denies any chest pain or significant palpitations. She was evaluated in the emergency room. When patient arrived she had a normal white count 10.3, chest x-ray with some congestion however no signs of lobar pneumonia. CT PE was negative for embolism and she received antibiotics with 125 Solu-Medrol and breathing treatment and did feel improved after breathing treatment. BNP of 3407 is noteworthy, comparing to her previous values of 961 in August of 2020. She was transferred to the telemetry care unit and was noted to have a rapid tachycardia and therefore cardiology was called for further evaluation and management. 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 Debility Depression Diabetes Dyspnea Fall as cause of accidental injury at home as place of occurrence Falls Heart failure with reduced left ventricular function Hemoglobin A1c greater than 9.0% High cholesterol History of stress test History of tobacco abuse Hoarseness Hyperlipidemia Hypertension Injury of omentum Insomnia Malignant neoplasm of right bronchus Muscle weakness (generalized) On home oxygen therapy Open wound of right thigh Paroxysmal atrial fibrillation Post-menopausal Recurrent falls Restless legs Seasonal allergic reaction Traumatic hematoma of right thigh Type 2 diabetes mellitus Type II diabetes mellitus Type II diabetes mellitus with manifestations Visual impairment Home Medications acetaminophen 325 mg capsule 650 mg PO Q6H PRN cap 08/09/20 [History Last Taken Unknown] albuterol sulfate 90 mcg/actuation aerosol inhaler 1 puff INHALATION Q4H PRN g 08/09/20 [History Last Taken Unknown] aluminum-mag hydroxide-simethicone 400 mg-400 mg-40 mg/5 mL oral susp 10 ml PO DAILY PRN ml 08/09/20 [History Last Taken Unknown] atorvastatin 40 mg tablet 40 mg PO QHS 08/09/20 [History Last Taken Unknown] cholecalciferol (vitamin D3) 25 mcg (1,000 unit) capsule 25 mcg PO DAILY 08/09/20 [History Last Taken Unknown] ferrous sulfate 325 mg (65 mg iron) capsule,extended release 325 mg PO DAILY cap 08/09/20 [History Last Taken Unknown] guaifenesin 1,200 mg tablet, extended release 12 hr 1,200 mg PO Q12H PRN 08/09/20 [History Last Taken Unknown] hydrocortisone 1 % topical cream 1 applic TOPICAL TID PRN 08/09/20 [History Last Taken Unknown] loperamide-simethicone 2 mg-125 mg tablet 1 tab PO DAILY PRN tab 08/09/20 [History Last Taken Unknown] losartan 100 mg tablet 100 mg PO DAILY 08/09/20 [History Last Taken Unknown] magnesium oxide 400 mg PO DAILY 08/09/20 [History Last Taken Unknown] metformin 1,000 mg tablet 500 mg PO BID 08/09/20 [History Last Taken Unknown] augbcvqbivdi-vtuwdfjx-skijnp tablet 1 tab PO DAILY 08/09/20 [History Last Taken Unknown] sodium chloride 0.65 % nasal spray aerosol 2 spray INTRANASAL Q2H PRN 08/09/20 [History Last Taken Unknown] standard wheelchair #1 ea 08/11/20 [Rx Last Taken Unknown] standard wheelchair 1 ea OTHER DAILY #1 device 08/11/20 [Rx Last Taken Unknown] blood pressure test kit-large #1 ea 08/16/20 [Rx Last Taken Unknown] verapamil 120 mg tablet 120 mg PO DAILY #30 tab 08/16/20 [Rx Last Taken Unknown] Boostrix Tdap 2.5 Lf unit-8 mcg-5 Lf/0.5 mL intramuscular syringe 0.5 ml IM ONCE #1 ml NS 08/24/20 [Clinic Last Taken Unknown] albuterol sulfate 2.5 mg INHALATION Q6H #180 ml 08/24/20 [Rx Last Taken Unknown] metoprolol tartrate 50 mg PO BID #60 tab 09/09/20 [Rx Last Taken Unknown] baclofen 10 mg tablet 10 mg PO BID PRN #60 tab 11/03/20 [Rx Last Taken Unknown] melatonin 5 mg capsule 5 mg PO QHS #90 cap 11/21/20 [Rx Last Taken Unknown] citalopram 40 mg tablet 40 mg PO DAILY #90 tab 11/24/20 [Rx Last Taken Unknown] pantoprazole 40 mg tablet,delayed release 40 mg PO DAILY #30 tab 01/10/21 [Rx Last Taken Unknown] Lactobacillus acidophilus [Probiotic] 10,000 mmu cells PO DAILY 02/24/21 [History Last Taken Unknown] cetirizine 10 mg PO DAILY 02/24/21 [History Last Taken Unknown] doxycycline hyclate 100 mg PO BID 02/24/21 [History Last Taken Unknown] insulin glargine [Lantus Solostar U-100 Insulin] 15 unit SUBCUT QHS 02/24/21 [History Last Taken Unknown] lidocaine 1 patch TOPICAL QHS 02/24/21 [History Last Taken Unknown] lorazepam 0.5 mg PO Q4H PRN 02/24/21 [History Last Taken Unknown] oxycodone 5 mg PO Q4H PRN 02/24/21 [History Last Taken Unknown] prednisone 40 mg PO DAILY 02/24/21 [History Last Taken Unknown] vitamins A,C,W-nsdm-yhijix [PreserVision AREDS] 1 tab PO BID 02/24/21 [History Last Taken Unknown] Allergy/AdvReac Type Severity Reaction Status Date / Time morphine AdvReac Severe Itching Verified 02/24/21 10:32 Penicillins AdvReac PT UNSURE Verified 02/24/21 10:32 OF REACTION Family History Mother Diabetes Heart disease Brother Cancer Prostate cancer Surgical History History of Social History household members: none housing: assisted living facility number of children: 3 current occupational status: retired current occupational exposures/hazards: No pets and animals: No history of recent travel: Yes (From [place]) details: Moved to [facility] to be closer to family out of state: Yes out of country: No Smoking Status: Former smoker quit date: 07/24/76 pack-years: 4 Tobacco: How many years used: 7 second hand exposure: No alcohol intake: current details: 1 glass wine 4 times a year. Social drinker. 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/mu-ism: Adventism seatbelt use: always do you feel safe at home: Yes ROS Constitutional Constitutional: Denies fever(s) or weight loss Eyes Eyes: Reports systems reviewed and no addt'l complaints, except as documented ENT HEENT: Reports systems reviewed and no addt'l complaints, except as documented Cardiovascular Cardiovascular: Denies chest pain at rest, chest pain with activity, dyspnea at rest, dyspnea on exertion, edema, palpitations or paroxysmal nocturnal dyspnea Respiratory/Chest Respiratory/Chest: Reports dyspnea on exertion and productive cough; Denies shortness of breath at rest or shortness of breath with exertion Gastrointestinal Gastrointestinal: Denies change in bowel habits, nausea, vomiting or weight changes Genitourinary Genitourinary: Denies difficulty urinating Musculoskeletal Musculoskeletal: Denies joint stiffness or muscle weakness Integumentary Integumentary: Denies lesions Neurologic Neurologic: Denies dizziness or syncope Psychiatric Psychiatric: Denies anxiety Endocrine Endocrinology: Denies excessive sweating or fatigue Hematologic/Lymphatic Hematologic/Lymphatic: Denies anemia Allergic/Immunologic Allergic/Immunologic: Denies seasonal rhinorrhea Physical Exam Const alert, oriented x3 and no apparent distress General Appearance: cooperative HEENT hearing grossly normal bilaterally Head and Scalp: atraumatic Eyes EOMs intact bilaterally Neck General: normal visual inspection Chest inspection of chest normal and palpation of chest normal Resp normal respiratory effort Auscultation: clear to auscultation bilaterally Cardio regular rate, regular rhythm, S1 normal heart sound and S2 normal heart sound Jugular Venous Distention: JVD GI normal to inspection, nondistended, normoactive bowel sounds Extremity normal capillary refill and no pedal edema Peripheral Pulses: Yes pulses 2+ throughout and femoral pulses present Skin no rashes or lesions noted Neuro oriented x3 and CN's II-XII intact bilaterally Psych Appearance: grossly normal and appropriate Risk Stratification Risk Stratification Applicable: No Objective Data Vital Signs: Vital Signs Temp Pulse Resp BP Pulse Ox 98.0 F 128 H 22 H 166/114 H 98 02/26/21 03:00 02/26/21 09:24 02/26/21 09:00 02/26/21 09:24 02/26/21 09:00 Oxygen Flow Rate (L/min) 2 Oxygen Delivery Method Nasal Cannula Weight: 174 lb 13.225 oz Body Mass Index (BMI) 28.0 Intake & Output: Intake and Output for Last 24 Hours 02/24/21 02/25/21 02/26/21 23:59 23:59 23:59 Intake Total 405 / 405 1082.09 / 1217.09 451.58 / 451.58 Output Total 700 / 700 Balance 405 / 405 382.09 / 517.09 451.58 / 451.58 Lab / Micro Data Result Diagrams: 02/26/21 05:30 02/26/21 05:30 Labs: Laboratory Results - last 24 hr 02/25/21 11:32: POC Glucose 361 H 02/25/21 16:40: POC Glucose 259 H 02/25/21 20:27: POC Glucose 342 H 02/26/21 05:30: WBC 10.4, RBC 3.50 L, Hgb 10.2 L, Hct 31.1 L, MCV 88.9, MCH 29.1, MCHC 32.8, RDW Std Deviation 41.1, RDW Coeff of Arik 12.7, Plt Count 253, MPV 10.0, Immature Gran % (Auto) 0.600, Neut % (Auto) 86.9 H, Lymph % (Auto) 5.7 L, [place]ance % (Auto) 6.7, Eos % (Auto) 0.0, Baso % (Auto) 0.1, Absolute Neuts (auto) 9.0 H, Absolute Lymphs (auto) 0.59 L, Nucleated RBC % 0 02/26/21 05:30: Sodium 134 L, Potassium 4.5, Chloride 99, Carbon Dioxide 26.0, Anion Gap 9, BUN 66 H, Creatinine 2.14 H, Estim Creat Clear Calc 19.96, Est GFR (MDRD) Af Amer 29 L, Est GFR (MDRD) Non-Af 24 L, BUN/Creatinine Ratio 30.8 H, Glucose 387 H, Calcium 8.4 L, Phosphorus 4.5, Magnesium 2.4 02/26/21 06:36: POC Glucose 396 H Cardiology Labs/Tests 02/26/21 05:30: WBC 10.4, RBC 3.50 L, Hgb 10.2 L, Hct 31.1 L, MCV 88.9, MCH 29.1, MCHC 32.8, Plt Count 253, MPV 10.0, Immature Gran % (Auto) 0.600, Neut % (Auto) 86.9 H, Lymph % (Auto) 5.7 L, Vance % (Auto) 6.7, Eos % (Auto) 0.0, Baso % (Auto) 0.1, Absolute Neuts (auto) 9.0 H, Nucleated RBC % 0 02/26/21 05:30: Sodium 134 L, Potassium 4.5, Chloride 99, Carbon Dioxide 26.0, Anion Gap 9, BUN 66 H, Creatinine 2.14 H, Est GFR (MDRD) Af Amer 29 L, Est GFR (MDRD) Non-Af 24 L, BUN/Creatinine Ratio 30.8 H, Glucose 387 H, Calcium 8.4 L, Phosphorus 4.5, Magnesium 2.4 Rhythm: EKG: ECHO: Stress Test: Cardiac Cath: PCI: CT Surgery: Holter monitor: EPS: PPM: CXR: Chest CT Scan:
--- NOTE | 2021-02-26 09:54 | CASEMGMT ---
Addendum entered by Ashley Puente 02/26/21 12:13: ALANA faxed therapy notes, RSV B diagnosis and negative COVID test. Ashley Puente MEDICATION COORDINATORVilla LEPE Original Note: ALANA faxed updates to [facility]
[2021-02-26 11:20] LABS: Bedside Glucose 414 mg/dL (70-110)
--- NOTE | 2021-02-26 16:11 | PCM.PN.HOSP ---
Subjective Subjective Breathing better. Does complains of palpiations. Objective Data Objective Data Vital Signs: Vital Signs Temp Pulse Resp BP Pulse Ox 36.4 C L 116 H 37 H 153/102 H 98 02/26/21 15:00 02/26/21 15:00 02/26/21 15:00 02/26/21 15:00 02/26/21 15:00 Oxygen Flow Rate (L/min) 2 Oxygen Delivery Method Nasal Cannula Weight: 79.3 kg Body Mass Index (BMI) 28.0 Intake & Output: Intake and Output for Last 24 Hours 02/24/21 02/25/21 02/26/21 23:59 23:59 23:59 Intake Total 405 / 405 1082.09 / 1217.09 1025.85 / 1025.85 Output Total 700 / 700 Balance 405 / 405 382.09 / 517.09 1025.85 / 1025.85 Lab / Micro Data Result Diagrams: 02/26/21 05:30 02/26/21 05:30 Labs: Laboratory Results - last 24 hr 02/25/21 16:40: POC Glucose 259 H 02/25/21 20:27: POC Glucose 342 H 02/26/21 05:30: WBC 10.4, RBC 3.50 L, Hgb 10.2 L, Hct 31.1 L, MCV 88.9, MCH 29.1, MCHC 32.8, RDW Std Deviation 41.1, RDW Coeff of Arik 12.7, Plt Count 253, MPV 10.0, Immature Gran % (Auto) 0.600, Neut % (Auto) 86.9 H, Lymph % (Auto) 5.7 L, [place] % (Auto) 6.7, Eos % (Auto) 0.0, Baso % (Auto) 0.1, Absolute Neuts (auto) 9.0 H, Absolute Lymphs (auto) 0.59 L, Nucleated RBC % 0 02/26/21 05:30: Sodium 134 L, Potassium 4.5, Chloride 99, Carbon Dioxide 26.0, Anion Gap 9, BUN 66 H, Creatinine 2.14 H, Estim Creat Clear Calc 19.96, Est GFR (MDRD) Af Amer 29 L, Est GFR (MDRD) Non-Af 24 L, BUN/Creatinine Ratio 30.8 H, Glucose 387 H, Calcium 8.4 L, Phosphorus 4.5, Magnesium 2.4 02/26/21 06:36: POC Glucose 396 H 02/26/21 11:01: POC Glucose 414 H Micro: Microbiology 02/24/21 11:45 Blood Culture (Wb) - Right Forearm Blood Culture - Preliminary No growth in 48 hours. 02/24/21 11:00 Blood Culture (Wb) - Right Forearm Blood Culture - Preliminary No growth in 48 hours. 02/24/21 13:33 Mucosa - Nasopharyngeal Respiratory Panel (PCR) - Final RSV B 02/24/21 10:49 Mucosa - Nasopharyngeal Influenza Types A,B Direct FA (FELIPA) - Final 02/24/21 10:49 Nasal Secretion SARS-CoV-2 Antigen (Rapid) - Final Physical Exam Const alert Constitutional Narrative: up in chair. HEENT Head and Scalp: normocephalic Resp normal respiratory effort, no retractions, no use of accessory muscles and clear to auscultation bilaterally Cardio regular rate, regular rhythm, S1 normal heart sound and S2 normal heart sound GI normal to inspection, nondistended, normoactive bowel sounds, soft to palpation, non-tender and non-distended Extremity normal to inspection Skin no rashes or lesions noted Neuro Sensorium / Orientation: awake and alert Assessment & Plan Assessment/Plan (1) RSV bronchitis: (2) Paroxysmal atrial flutter: PLAN: 1. RSV bronchitis supportive mgmt add prednisone DC empiric abx 2. pflutter w RVR refractory to IV dilt started on amio gtt continue metoprolol tartrate 3. HFrEF no clinical CHF, therefore ruled out BNP elevated but no clinical CHF check echo 4. NSCLC larger follow up with med and rad onc complicates care and overall recovery 5. VTE prophylaxis: LMWH Charges/Coding Visit Charges Inpatient E&M: 94865 Subs Hosp L2
--- NOTE | 2021-02-26 16:17 | ECHOD_ITS ---
Reason For Study: CHF Procedure This was a 2D Doppler, Color Flow transthoracic echocardiogram. Exam performed portable in patient room. Left Ventricle Normal LV size. Moderate concentric left ventricular hypertrophy. The estimated ejection fraction is 15 %. There is severe global hypokinesis of the left ventricle. Right Ventricle Normal RV size. Normal systolic function. Atria The left atrium is moderately enlarged. The right atrium is moderately enlarged. Mitral Valve Normal mitral valve. Mild-Moderate (1-2+) eccentric mitral valve insufficiency. Tricuspid Valve Normal tricuspid valve. Mild (1+) tricuspid valve insufficiency. Pulmonary artery systolic pressure is 34 mmHg. Aortic Valve Trisinus/trileaflet aortic valve. Mild focal aortic valve calcification. Pulmonic Valve Normal pulmonic valve. Great Vessels Normal aortic root. The pulmonary artery is normal size. Normal inferior vena cava. Pericardium/Pleural No pericardial effusion. MMode/2D Measurements & Calculations LVIDd: 4.9 cm IVSd: 1.5 cm Ao root diam: 3.3 cm LVIDs: 4.2 cm LVPWd: 1.5 cm RVDd: 3.4 cm FS: 14.2 % LAV(MOD-bp): 95.8 ml LVAd ap4: 31.1 cm2 LVAd ap2: 37.7 cm2 LAV(MOD-bp) Indexed: 50.8 ml/m2 LVLd ap4: 7.8 cm LVLd ap2: 9.1 cm LAV(MOD-sp2): 83.3 ml EDV(MOD-sp4): 101.7 ml EDV(MOD-sp2): 131.9 ml LAV(MOD-sp4): 102.4 ml EDV(sp4-el): 105.5 ml EDV(sp2-el): 132.7 ml LVAs ap4: 28.8 cm2 LVAs ap2: 34.6 cm2 LVLs ap4: 7.5 cm LVLs ap2: 9.0 cm ESV(MOD-sp4): 89.9 ml ESV(MOD-sp2): 113.6 ml ESV(sp4-el): 93.1 ml ESV(sp2-el): 113.6 ml EF(MOD-sp4): 11.6 % EF(MOD-sp2): 13.8 % EF(sp4-el): 11.8 % SV(MOD-sp4): 11.8 ml SV(MOD-sp2): 18.3 ml SV(sp4-el): 12.4 ml LA dimension(2D): 4.3 cm LA A4 area: 27.2 cm2 RA A4 area: 26.6 cm2 Doppler Measurements & Calculations MV E max canelo: 108.4 cm/sec Ao V2 max: 84.4 cm/sec LV V1 max: 66.1 cm/sec Ao max P.9 mmHg LV V1 max P.7 mmHg PA V2 max: 54.6 cm/sec TR max canelo: 272.3 cm/sec TR max P.8 mmHg ECHO/Echo Complete Interpretation Summary Normal LV size. Moderate concentric left ventricular hypertrophy. The estimated ejection fraction is 15 %. There is severe global hypokinesis of the left ventricle. The left atrium is moderately enlarged. The right atrium is moderately enlarged. Compared to previous study, the left ventricular systolic function has worsened .. Ordering Physician: Dedrick Rolon Referring Physician: Christal Sellers M.D. Performed By: Klesea Flores RDCS
[2021-02-26 16:35] LABS: Bedside Glucose 450 mg/dL (70-110)
[2021-02-26] MEDS: dilTIAZem 25 MG/5 ML Vial 20 MG IV BOLUS (18:51)
[2021-02-26] MEDS: Atorvastatin Calcium 40 MG Tablet PO (20:50)
[2021-02-26] MEDS: MELATONIN 10 MG TABLET 5 MG PO (20:50)
[2021-02-26] MEDS: guaiFENesin 1,200 MG Tablet 1200 MG PO (20:50)
[2021-02-26 21:06] LABS: Bedside Glucose 422 mg/dL (70-110)
[2021-02-27] VITALS (28 sets, daily range): BP systolic 97–172; BP diastolic 61–140; PULSE 55–128; RESP 15–27; TEMP 36.2–36.8; O2SAT 89–98
[2021-02-27] MEDS: Insulin Lispro 100 UNIT/ML INSULN.PEN SC ×4 (06:42→22:12)
[2021-02-27 06:46] LABS: Bedside Glucose 237 mg/dL (70-110)
[2021-02-27 06:49] LABS: Anion Gap 9 (5-15); BUN 76 mg/dL (7-18); BUN/Creat Ratio 33.9 RATIO (10-20); Calcium,Total 8.4 mg/dL (8.5-10.1); Chloride 100 mmol/L (98-107); Creatinine, Serum 2.24 mg/dL (0.55-1.02); EST Glomerular Filtration Rate 22 mL/min (>60); Est Glom Filt Rate - Afr Amer 27 mL/min (>60); Estimated Creatinine Clearance 19.06 ml/min; Glucose 235 mg/dL (74-106); Potassium 4.1 mmol/L (3.5-5.1); Sodium Level 134 mmol/L (136-145)
[2021-02-27] MEDS: Losartan Potassium 100 MG Tablet PO (08:02)
[2021-02-27] MEDS: Furosemide 40 MG Tablet PO (08:03)
[2021-02-27] MEDS: Metoprolol Tartrate 50 MG Tablet PO (08:03)
[2021-02-27] MEDS: Magnesium Chloride 64 MG Delay Rel.Tablet 128 MG PO (08:03)
[2021-02-27] MEDS: predniSONE 20 MG Tablet 40 MG PO (08:04)
[2021-02-27] MEDS: Pantoprazole Sodium 40 MG Tablet PO (08:04)
[2021-02-27] MEDS: Citalopram 20 MG Tablet PO (08:04)
[2021-02-27] MEDS: Cholecalciferol (VIT D3) 25 MCG TABLET (1,000 UNITS) PO (08:04)
[2021-02-27] MEDS: Enoxaparin 30 MG/0.3 ML Syringe SC (08:04)
--- NOTE | 2021-02-27 08:49 | PN.HOSP_ITS ---
Subjective Subjective Feeling short of breath. Objective Data Objective Data Vital Signs: Vital Signs Temp Pulse Resp BP Pulse Ox 36.2 C L 127 H 25 H 116/82 H 98 02/27/21 08:00 02/27/21 08:16 02/27/21 08:00 02/27/21 08:03 02/27/21 08:00 Oxygen Flow Rate (L/min) 2 Oxygen Delivery Method Nasal Cannula Weight: 78.6 kg Body Mass Index (BMI) 28.0 Intake & Output: Intake and Output for Last 24 Hours 02/25/21 02/26/21 02/27/21 23:59 23:59 23:59 Intake Total 1082.09 / 1217.09 1659.47 / 1676.17 280.3 / 280.3 Output Total 700 / 700 Balance 382.09 / 517.09 1659.47 / 1676.17 280.3 / 280.3 Lab / Micro Data Result Diagrams: 02/26/21 05:30 02/27/21 05:25 Labs: Laboratory Results - last 24 hr 02/26/21 11:01: POC Glucose 414 H 02/26/21 16:26: POC Glucose 450 H 02/26/21 20:48: POC Glucose 422 H 02/27/21 05:25: Sodium 134 L, Potassium 4.1, Chloride 100, Carbon Dioxide 25.0, Anion Gap 9, BUN 76 H, Creatinine 2.24 H, Estim Creat Clear Calc 19.06, Est GFR (MDRD) Af Amer 27 L, Est GFR (MDRD) Non-Af 22 L, BUN/Creatinine Ratio 33.9 H, Glucose 235 H, Calcium 8.4 L 02/27/21 06:39: POC Glucose 237 H Micro: Microbiology 02/24/21 11:45 Blood Culture (Wb) - Right Forearm Blood Culture - P reliminary No growth in 48 hours. 02/24/21 11:00 Blood Culture (Wb) - Right Forearm Blood Culture - Preliminary No growth in 48 hours. 02/24/21 13:33 Mucosa - Nasopharyngeal Respiratory Panel (PCR) - Final RSV B 02/24/21 10:49 Mucosa - Nasopharyngeal Influenza Types A,B Direct FA (FELIPA) - Final 02/24/21 10:49 Nasal Secretion SARS-CoV-2 Antigen (Rapid) - Final Radiography Diagnostic Testing: Radiology Impression Echocardiogram 02/26/21 16:17 Interpretation Summary Normal LV size. Moderate concentric left ventricular hypertrophy. The estimated ejection fraction is 15 %. There is severe global hypokinesis of the left ventricle. The left atrium is moderately enlarged. The right atrium is moderately enlarged. Compared to previous study, the left ventricular systolic function has worsened.. Ordering Physician: Dedrick Rolon Referring Physician: Christal Sellers M.D. Performed By: Kelsea Flores RDCS Physical Exam Const Constitutional Narrative: taking short shallow breaths, mouth breathing and pulse ox is 98-100% with good wave forms. Resp normal respiratory effort Resp Narrative: coarse breath sounds Cardio regular rate, regular rhythm, S1 normal heart sound and S2 normal heart sound GI normal to inspection, nondistended, normoactive bowel sounds, soft to palpation, non-tender and non-distended Extremity Extremity Narrative: edema Psych Mood & Affect: anxious Assessment & Plan Assessment/Plan (1) RSV bronchitis: (2) Paroxysmal atrial flutter: PLAN: Greater than 40 minutes of which greater than 50% of time was discussing the patient about proper breathing 1. RSV bronchitis supportive mgmt add prednisone DC empiric abx 2. paroxysmal aflutter w RVR ongoing refractory to IV dilt started on amio gtt continue metoprolol tartrate 3. HFrEF no clinical CHF, therefore ruled out BNP elevated but no clinical CHF EF worse now at 15%, down from 40% from August ?tachycardia induced DW Dr. Leahy 4. JLUIS due to diuresis cardiorenal? monitor consider nephrology consult if worse 5. NSCLC larger follow up with med and rad onc complicates care and overall recovery 6. VTE prophylaxis: LMWH Greater than 40 minutes of which greater than for present time was discussed with the patient about her upper respiratory wheezing, proper breathing techniques in her nose and outer mouth, using incentive spirometer, reviewing her vitals and what the different vital signs meant. I told the patient that her oxygen is good and showed her what number that was but also showed her ongoing tachycardia on the monitor. Discussed with the patient's son, William, and updated him on the reduced ejection fraction, acute kidney injury, tachycardia and RSV. Informed him that he can visit her is always within visiting hours but that he would need to wear proper PPE in her room. He asked if her brother is from out of state should be coming in. I told him that at this point time the patient is not actively dying but certainly given all her medical issues that certainly could change. I told him I did not feel that would be necessary for him for his [id number] brothers to. Charges/Coding Visit Charges Inpatient E&M: 15896 Subs Hosp L3
[2021-02-27] MEDS: Amiodarone 360 MG in Dextrose 5% Viaflo Bag 192.8 ML 16.7 MG CONT INF (10:09)
--- NOTE | 2021-02-27 10:33 | WOUNDNOTE ---
Was asked by nursing to assess the right hip incision. patient states she had surgery in August for a blood clot. the incision is healed. there is a small pucker noted in the most proximal portion of the incision. there is a small amount of scabbing noted. there are no signs of infection noted. no active drainage. can leave [facility]. no need for wound care at this time.
--- NOTE | 2021-02-27 11:31 | CASEMGMT ---
ALANA received a call from Magui Martinez at [facility]. She asked for an update on patient. ALANA let her know what physician said today and that he spoke with patient's son. Magui said patient's son is calling them and wondering if they should consult Hospice. ALANA asked physician as he was nearby. He does not feel patient needs Palliative or Hospice at this time. ALANA let Magui know this information. She said they can take patient back whenever she is ready. Ashley LEPE
[2021-02-27 11:36] LABS: Bedside Glucose 281 mg/dL (70-110)
--- NOTE | 2021-02-27 12:42 | EKG12_ITS ---
Test Reason : CONVERT TO NSR Blood Pressure : / mmHG Vent. Rate : 058 BPM Atrial Rate : 058 BPM P-R Int : 156 ms QRS Dur : 092 ms QT Int : 468 ms P-R-T Axes : 079 000 197 degrees QTc Int : [address] & T wave abnormality, consider inferolateral ischemia Abnormal ECG When compared with ECG of 26-FEB-2021 04:02, Sinus rhythm has replaced Atrial flutter Vent. rate has decreased BY [address] less depressed in Inferior leads Confirmed by GRETCHEN LANZA, NAREN ([id number]), film editor supervisor SERGEY SUBRAMANIAN ([id number]) on 02/28/2021 1:58:21 PM Referred By: QUOC Confirmed By:NAREN GODINEZ MD
--- NOTE | 2021-02-27 14:31 | PN.CARD_ITS ---
Objective Data Vital Signs: Vital Signs Temp Pulse Resp BP Pulse Ox 97.9 F 57 L 23 H 130/68 H 97 02/27/21 14:00 02/27/21 14:00 02/27/21 14:00 02/27/21 14:00 02/27/21 14:00 Oxygen Flow Rate (L/min) 2 Oxygen Delivery Method Nasal Cannula Weight: 173 lb 4.533 oz Body Mass Index (BMI) 28.0 Intake & Output: Intake and Output for Last 24 Hours 02/25/21 02/26/21 02/27/21 23:59 23:59 23:59 Intake Total 1082.09 / 1217.09 1659.47 / 1676.17 909.81 / 909.81 Output Total 700 / 700 Balance 382.09 / 517.09 1659.47 / 1676.17 879.81 / 879.81 Lab / Micro Data Result Diagrams: 02/26/21 05:30 02/27/21 05:25 Labs: Laboratory Results - last 24 hr 02/26/21 16:26: POC Glucose 450 H 02/26/21 20:48: POC Glucose 422 H 02/27/21 05:25: Sodium 134 L, Potassium 4.1, Chloride 100, Carbon Dioxide 25.0, Anion Gap 9, BUN 76 H, Creatinine 2.24 H, Estim Creat Clear Calc 19.06, Est GFR (MDRD) Af Amer 27 L, Est GFR (MDRD) Non-Af 22 L, BUN/Creatinine Ratio 33.9 H, Glucose 235 H, Calcium 8.4 L 02/27/21 06:39: POC Glucose 237 H 02/27/21 11:24: POC Glucose 281 H Micro: Microbiology 02/24/21 11:45 Blood Culture (Wb) - Right Forearm Blood Culture - Preliminary No growth in 48 hours. 02/24/21 11:00 Blood Culture (Wb) - Right Forearm Blood Culture - Preliminary No growth in 48 hours. Cardiology Labs/Tests 02/27/21 05:25: Sodium 134 L, Potassium 4.1, Chloride 100, Carbon Dioxide 25.0, Anion Gap 9, BUN 76 H, Creatinine 2.24 H, Est GFR (MDRD) Af Amer 27 L, Est GFR (MDRD) Non-Af 22 L, BUN/Creatinine Ratio 33.9 H, Glucose 235 H, Calcium 8.4 L Rhythm: EKG: ECHO: Stress Test: Cardiac Cath: PCI: CT Surgery: Holter monitor: EPS: PPM: CXR: Chest CT Scan: Radiography Diagnostic Testing: Radiology Impression Echocardiogram 02/26/21 16:17 Interpretation Summary Normal LV size. Moderate concentric left ventricular hypertrophy. The estimated ejection fraction is 15 %. There is severe global hypokinesis of the left ventricle. The left atrium is moderately enlarged. The right atrium is moderately enlarged. Compared to previous study, the left ventricular systolic function has worsened.. Ordering Physician: Dedrick Rolon Referring Physician: Christal Sellers M.D. Performed By: Kelsea Flores RDCS Physical Exam Const alert, oriented x3 and no apparent distress General Appearance: cooperative HEENT hearing grossly normal bilaterally Head and Scalp: atraumatic Eyes EOMs intact bilaterally Neck General: normal visual inspection Chest inspection of chest normal and palpation of chest normal Resp normal respiratory effort Auscultation: clear to auscultation bilaterally Cardio regular rate, regular rhythm, S1 normal heart sound and S2 normal heart sound Jugular Venous Distention: JVD GI normal to inspection, nondistended, normoactive bowel sounds Extremity normal capillary refill and no pedal edema Peripheral Pulses: Yes pulses 2+ throughout and femoral pulses present Skin no rashes or lesions noted Neuro oriented x3 and CN's II-XII intact bilaterally Psych Appearance: grossly normal and appropriate Assessment & Plan Assessment/Plan (1) Paroxysmal atrial flutter: PLAN: Patient has a history of paroxysmal atrial flutter. She has spontaneously converted to sinus rhythm on IV amiodarone and diltiazem. I would recommend that we switch her to p.o. amiodarone and discontinue the diltiazem and the metoprolol and put her on carvedilol instead. I still am hesitant about anticoagulating her at this time. (2) Congestive heart failure (CHF): PLAN: She does have evidence of congestive heart failure. Her most recent echocardiogram this morning demonstrated severe left ventricular systolic dysfunction which was global estimated at 15%. Some of this may be tachycardia mediated. I would recommend that we continue with beta-juliane switching her to Coreg 12.5 mg twice a day, the losartan, and Lasix. Thank you for allowing me to participate in the care of your patient. Please don't hesitate to call if any issues arise.
[2021-02-27] MEDS: 0.9% Saline Lock 10 ML Syringe IV ×2 (16:12→18:02)
[2021-02-27 16:21] LABS: Bedside Glucose 273 mg/dL (70-110)
[2021-02-27 21:10] LABS: Mucous, Urine 0 SEEN /hpf (<or=2+); Red Blood Cells-Urine 0 SEEN /hpf (0-5); Squamous Epithelial Cells - UA 0 SEEN /hpf (5-10)
[2021-02-27 21:13] LABS: Color, Urine Yellow (Yellow); Glucose, Dipstick 100 mg/dl (Normal); Ketone-Dipstick Negative (Negative); Leukocyte Esterase-Dipstick 100 /ul (Negative); Nitrite-Dipstick Negative (Negative); Occult Blood-Urine 10 /ul (Negative); Protein-Dipstick 500 mg/dl (Negative); Urine Bilirubin Dipstick Negative (Negative); Urine Clarity Sl. Cloudy (Clear); Urine Urobilinogen Normal (Normal)
[2021-02-27 21:19] LABS: Amorphous Sediment 1+; Bacteria 1+ /hpf (None Seen); White Blood Cells 0-5 SEEN /hpf (0-5)
[2021-02-27 21:26] LABS: Urea Nitrogen, Urine 671 mg/dL (NO RANGE EST.)
[2021-02-27] MEDS: Benzonatate 100 MG Capsule PO (22:11)
[2021-02-27] MEDS: Acetaminophen 325 MG Tablet 650 MG PO (22:12)
[2021-02-27] MEDS: LORazepam 0.5 MG Tablet PO (22:12)
[2021-02-27] MEDS: MELATONIN 10 MG TABLET 5 MG PO (22:12)
[2021-02-27] MEDS: guaiFENesin 1,200 MG Tablet 1200 MG PO (22:12)
[2021-02-27] MEDS: Atorvastatin Calcium 40 MG Tablet PO (22:12)
[2021-02-27 22:15] LABS: Bedside Glucose 311 mg/dL (70-110)
[2021-02-27] MEDS: Amiodarone 200 MG Tablet PO (22:15)
[2021-02-27] MEDS: Carvedilol 12.5 MG Tablet PO (22:15)
[2021-02-28] VITALS (9 sets, daily range): BP systolic 144–165; BP diastolic 87–114; PULSE 78–94; RESP 20; TEMP 36.2–36.7; O2SAT 86–98
[2021-02-28] MEDS: Insulin Lispro 100 UNIT/ML INSULN.PEN SC ×3 (06:37→21:30)
[2021-02-28 06:50] LABS: Bedside Glucose 230 mg/dL (70-110)
[2021-02-28 08:18] LABS: Absolute Lymphocyte Count 0.96 X10^3/uL (0.83-4.51); Absolute Neutrophil Count 6.4 X10^3/uL (2.0-7.7); Basophil# 0.01 X10^3/uL; Basophil% 0.1 % (0-1); Eosinophil# 0.03 X10^3/uL; Eosinophils% 0.3 % (0-5); Hematocrit 33.1 % (37-47); Hemoglobin 10.6 g/dL (12.0-15.0); Lymphocyte # 0.96 X10^3/ul (0.83-4.51); Lymphocyte % 11.1 % (19-41); Mean Corpuscular Hgb 28.6 pg (27.0-32.0); Mean Corpuscular Volume 89.5 fL (81-99); Mean Platelet Vol. 9.9 fl (6.2-12.0); Monocyte# 1.17 X10^3/uL; Monocyte% 13.6 % (0-10); NRBC Flagged by Analyzer 0 % (0-5); Neutrophil # 6.41 X10^3/uL (2.7-7.7); Neutrophil % 74.4 % (47-70); Platelet Count 280 K/mm3 (150-450); RBC Distribution Width CV 12.4 % (11.6-14.6); White Blood Count 8.6 K/mm3 (4.4-11.0)
[2021-02-28 08:29] LABS: Anion Gap 9 (5-15); BUN 81 mg/dL (7-18); BUN/Creat Ratio 35.1 RATIO (10-20); Calcium,Total 8.4 mg/dL (8.5-10.1); Chloride 104 mmol/L (98-107); Creatinine, Serum 2.31 mg/dL (0.55-1.02); EST Glomerular Filtration Rate 22 mL/min (>60); Est Glom Filt Rate - Afr Amer 26 mL/min (>60); Estimated Creatinine Clearance 18.49 ml/min; Glucose 200 mg/dL (74-106); Potassium 3.8 mmol/L (3.5-5.1); Sodium Level 139 mmol/L (136-145)
[2021-02-28] MEDS: predniSONE 20 MG Tablet 40 MG PO (09:44)
[2021-02-28] MEDS: Magnesium Chloride 64 MG Delay Rel.Tablet 128 MG PO (09:45)
[2021-02-28] MEDS: Losartan Potassium 100 MG Tablet PO (09:45)
[2021-02-28] MEDS: Enoxaparin 30 MG/0.3 ML Syringe SC (09:45)
[2021-02-28] MEDS: Citalopram 20 MG Tablet PO (09:45)
[2021-02-28] MEDS: Amiodarone 200 MG Tablet PO ×2 (09:45→21:31)
[2021-02-28] MEDS: Pantoprazole Sodium 40 MG Tablet PO (09:45)
[2021-02-28] MEDS: Cholecalciferol (VIT D3) 25 MCG TABLET (1,000 UNITS) PO (09:45)
[2021-02-28] MEDS: Furosemide 40 MG Tablet PO (09:45)
[2021-02-28] MEDS: Carvedilol 12.5 MG Tablet PO ×2 (09:45→21:32)
--- NOTE | 2021-02-28 10:17 | WOUNDNOTE ---
In to reassess the right hip incision. can better assess the hip since patient is laying in bed. the incision is pretty well healed. there is a small area that may have dehisced slightly at the proximal portion of the incision, but the tissues are nearly healed. there is a small pucker noted in the incision. there is not drainage. did removed most of the scabbed areas. cleansed with soap and water. did apply a dry dressing to protect the incision. pt tolerated well. denies further needs at this time.
--- NOTE | 2021-02-28 10:28 | CASEMGMT ---
ALANA spoke with patient and she said she has O2 in her room already. She does not wear it all the time. ALANA called [facility] and spoke with patient's nurse, Puja. Puja said patient has O2 concentrator in her room. She has long tubing to get around her room. They currently have to stay in their rooms anyway. Puja said Dr Sellers can order whatever patient needs if needed. ALANA let her know it is possible patient will return today. Ashley LEPE
--- NOTE | 2021-02-28 11:20 | CASEMGMT ---
Patient's son, William called ALANA and had some questions. He needed some guidance on what to do with patient. He was thinking about taking patient home with him with Hospice or Palliative. ALANA told him ALANA did talk with the physician and he does not feel Palliative or Hospice is needed at this time. William had some concerns with [facility] the day when patient came into the hospital. ALANA asked him if he addressed those concerns with [facility] and he has not done this yet. ALANA suggested William talk with [facility] about his concerns. Then have patient go back to [facility] when ready. ALANA suggested he see how things go and talk with Dr Sellers, patient's PCP about Palliative or Hospice. He was okay with this plan. Ashley LEPE
--- NOTE | 2021-02-28 12:51 | PN.CARD_ITS ---
Subjective Subjective Patient seen and evaluated. Appears to be doing better at this morning. Objective Data Vital Signs: Vital Signs Temp Pulse Resp BP Pulse Ox 97.2 F L 87 20 H 165/99 H 92 02/28/21 09:51 02/28/21 09:51 02/28/21 09:51 02/28/21 09:51 02/28/21 09:57 Oxygen Flow Rate (L/min) [At 2 REST with Oxygen] Oxygen Flow Rate (L/min) 2 Oxygen Delivery Method Nasal Cannula Weight: 174 lb 2.643 oz Body Mass Index (BMI) 28.0 Intake & Output: Intake and Output for Last 24 Hours 02/26/21 02/27/21 02/28/21 23:59 23:59 23:59 Intake Total 1659.47 / 1676.17 1027.91 / 1147.91 120 / 120 Output Total 30 / 130 100 / 100 Balance 1659.47 / 1676.17 997.91 / 1017.91 Lab / Micro Data Result Diagrams: 02/28/21 07:50 02/28/21 07:50 Labs: Laboratory Results - last 24 hr 02/27/21 16:08: POC Glucose 273 H 02/27/21 20:55: Urine Color Yellow, Urine Clarity Sl. Cloudy, Urine pH 5.0, Ur Specific [place] 1.020, Urine Protein 500 H, Urine Glucose (UA) 100 H, Urine Ketones Negative, Urine Occult Blood 10 H, Urine Nitrite Negative, Urine Bilirubin Negative, Urine Urobilinogen Normal, Ur Leukocyte Esterase 100 H, Urine RBC 0 SEEN, Urine WBC 0-5 SEEN, Ur Squamous Epith Cells 0 SEEN, Amorphous Sediment 1+, Urine Bacteria 1+, Urine Mucus 0 SEEN 02/27/21 20:55: Urine Creatinine 83.20, Urine Urea Nitrogen 671 02/27/21 22:10: POC Glucose 311 H 02/28/21 06:36: POC Glucose 230 H 02/28/21 07:50: WBC 8.6, RBC 3.70 L, Hgb 10.6 L, Hct 33.1 L, MCV 89.5, MCH 28.6, MCHC 32.0, RDW Std Deviation 41.0, RDW Coeff of [place] 12.4, Plt Count 280, MPV 9.9, Immature Gran % (Auto) 0.500, Neut % (Auto) 74.4 H, Lymph % (Auto) 11.1 L, [place] % (Auto) 13.6 H, Eos % (Auto) 0.3, Baso % (Auto) 0.1, Absolute Neuts (auto) 6.4, Absolute Lymphs (auto) 0.96, Nucleated RBC % 0 02/28/21 07:50: Sodium 139, Potassium 3.8, Chloride 104, Carbon Dioxide 26.0, Anion Gap 9, BUN 81 H, Creatinine 2.31 H, Estim Creat Clear Calc 18.49, Est GFR (MDRD) Af Amer 26 L, Est GFR (MDRD) Non-Af 22 L, BUN/Creatinine Ratio 35.1 H, Glucose 200 H, Calcium 8.4 L Cardiology Labs/Tests 02/27/21 20:55: Urine Color Yellow, Urine Clarity Sl. Cloudy, Urine pH 5.0, Ur Specific [place] 1.020, Urine Protein 500 H, Urine Glucose (UA) 100 H, Urine Ketones Negative, Urine Occult Blood 10 H, Urine Nitrite Negative, Urine Bilirubin Negative, Urine Urobilinogen Normal, Ur Leukocyte Esterase 100 H, Urine RBC 0 SEEN, Urine WBC 0-5 SEEN 02/28/21 07:50: WBC 8.6, RBC 3.70 L, Hgb 10.6 L, Hct 33.1 L, MCV 89.5, MCH 28.6, MCHC 32.0, Plt Count 280, MPV 9.9, Immature Gran % (Auto) 0.500, Neut % (Auto) 74.4 H, Lymph % (Auto) 11.1 L, [place] % (Auto) 13.6 H, Eos % (Auto) 0.3, Baso % (Auto) 0.1, Absolute Neuts (auto) 6.4, Nucleated RBC % 0 02/28/21 07:50: Sodium 139, Potassium 3.8, Chloride 104, Carbon Dioxide 26.0, Anion Gap 9, BUN 81 H, Creatinine 2.31 H, Est GFR (MDRD) Af Amer 26 L, Est GFR (MDRD) Non-Af 22 L, BUN/Creatinine Ratio 35.1 H, Glucose 200 H, Calcium 8.4 L Rhythm: EKG: ECHO: Stress Test: Cardiac Cath: PCI: CT Surgery: Holter monitor: EPS: PPM: CXR: Chest CT Scan: Assessment & Plan Assessment/Plan (1) Paroxysmal atrial flutter: PLAN: Patient has a history of paroxysmal atrial flutter. She has spontaneously converted to sinus rhythm on IV amiodarone and diltiazem. I would recommend that we switch her to p.o. amiodarone and discontinue the diltiazem and the metoprolol and put her on carvedilol instead. I still am hesitant about anticoagulating her at this time. She appears to be tolerating the above regimen for now. (2) Congestive heart failure (CHF): PLAN: She does have evidence of congestive heart failure. Her most recent echocardiogram this morning demonstrated severe left ventricular systolic dysfunction which was global estimated at 15%. Some of this may be tachycardia mediated. I would recommend that we continue with beta-juliane switching her to Coreg 12.5 mg twice a day, the losartan, and Lasix. We will put the patient on the latter 40 mg a day. Thank you for allowing me to participate in the care of your patient. Please don't hesitate to call if any issues arise.
[2021-02-28 14:51] LABS: Bedside Glucose 152 mg/dL (70-110)
--- NOTE | 2021-02-28 15:05 | PN.HOSP_ITS ---
Subjective Subjective breating better. converted to NSR. Objective Data Objective Data Vital Signs: Vital Signs Temp Pulse Resp BP Pulse Ox 36.2 C L 87 20 H 165/99 H 92 02/28/21 09:51 02/28/21 09:51 02/28/21 09:51 02/28/21 09:51 02/28/21 09:57 Oxygen Flow Rate (L/min) [At 2 REST with Oxygen] Oxygen Flow Rate (L/min) 2 Oxygen Delivery Method Nasal Cannula Weight: 79 kg Body Mass Index (BMI) 28.0 Intake & Output: Intake and Output for Last 24 Hours 02/26/21 02/27/21 02/28/21 23:59 23:59 23:59 Intake Total 1659.47 / 1676.17 1027.91 / 1147.91 120 / 120 Output Total 30 / 130 100 / 100 Balance 1659.47 / 1676.17 997.91 / 1017.91 Lab / Micro Data Result Diagrams: 02/28/21 07:50 02/28/21 07:50 Labs: Laboratory Results - last 24 hr 02/27/21 16:08: POC Glucose 273 H 02/27/21 20:55: Urine Color Yellow, Urine Clarity Sl. Cloudy, Urine pH 5.0, Ur Specific [place] 1.020, Urine Protein 500 H, Urine Glucose (UA) 100 H, Urine Ket ones Negative, Urine Occult Blood 10 H, Urine Nitrite Negative, Urine Bilirubin Negative, Urine Urobilinogen Normal, Ur Leukocyte Esterase 100 H, Urine RBC 0 SEEN, Urine WBC 0-5 SEEN, Ur Squamous Epith Cells 0 SEEN, Amorphous Sediment 1+, Urine Bacteria 1+, Urine Mucus 0 SEEN 02/27/21 20:55: Urine Creatinine 83.20, Urine Urea Nitrogen 671 02/27/21 22:10: POC Glucose 311 H 02/28/21 06:36: POC Glucose 230 H 02/28/21 07:50: WBC 8.6, RBC 3.70 L, Hgb 10.6 L, Hct 33.1 L, MCV 89.5, MCH 28.6, MCHC 32.0, RDW Std Deviation 41.0, RDW Coeff of Arik 12.4, Plt Count 280, MPV 9.9, Immature Gran % (Auto) 0.500, Neut % (Auto) 74.4 H, Lymph % (Auto) 11.1 L, [place] % (Auto) 13.6 H, Eos % (Auto) 0.3, Baso % (Auto) 0.1, Absolute Neuts (auto) 6.4, Absolute Lymphs (auto) 0.96, Nucleated RBC % 0 02/28/21 07:50: Sodium 139, Potassium 3.8, Chloride 104, Carbon Dioxide 26.0, Anion Gap 9, BUN 81 H, Creatinine 2.31 H, Estim Creat Clear Calc 18.49, Est GFR (MDRD) Af Amer 26 L, Est GFR (MDRD) Non-Af 22 L, BUN/Creatinine Ratio 35.1 H, Glucose 200 H, Calcium 8.4 L 02/28/21 11:40: POC Glucose 152 H Micro: Microbiology 02/24/21 11:45 Blood Culture (Wb) - Right Forearm Blood Culture - Preliminary No growth in 48 hours. 02/24/21 11:00 Blood Culture (Wb) - Right Forearm Blood Culture - Preliminary No growth in 48 hours. 02/24/21 13:33 Mucosa - Nasopharyngeal Respiratory Panel (PCR) - Final RSV B 02/24/21 10:49 Mucosa - Nasopharyngeal Influenza Types A,B Direct FA (FELIPA) - Final 02/24/21 10:49 Nasal Secretion SARS-CoV-2 Antigen (Rapid) - Final Physical Exam Const alert and no apparent distress Resp normal respiratory effort and no retractions Resp Narrative: decreased wheezing. Cardio regular rate, regular rhythm, S1 normal heart sound and S2 normal heart sound Assessment & Plan Assessment/Plan (1) RSV bronchitis: (2) Paroxysmal atrial flutter: (3) JLUIS (acute kidney injury): (4) HFrEF (heart failure with reduced ejection fraction): PLAN: 1. RSV bronchitis supportive mgmt prednisone through 03/01 DC empiric abx 2. paroxysmal aflutter w RVR converted to NSR on 02/27 on PO carvedilol and amio 3. 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 Leahy follow up with cardiology 4. JLUIS due to diuresis cardiorenal? monitor consider nephrology consult if worse 5. NSCLC larger follow up with med and rad onc complicates care and overall recovery 6. VTE prophylaxis: LMWH DC planning Charges/Coding Visit Charges Inpatient E&M: 48261 Subs Hosp L2
[2021-02-28] MEDS: Benzonatate 100 MG Capsule PO (16:12)
[2021-02-28 16:15] LABS: Bedside Glucose 250 mg/dL (70-110)
[2021-02-28] MEDS: guaiFENesin 1,200 MG Tablet 1200 MG PO (21:31)
[2021-02-28] MEDS: LORazepam 0.5 MG Tablet PO (21:31)
[2021-02-28] MEDS: Acetaminophen 325 MG Tablet 650 MG PO (21:31)
[2021-02-28] MEDS: Atorvastatin Calcium 40 MG Tablet PO (21:32)
[2021-02-28] MEDS: MELATONIN 10 MG TABLET 5 MG PO (21:32)
[2021-02-28 21:41] LABS: Bedside Glucose 340 mg/dL (70-110)
[2021-03-01] VITALS (7 sets, daily range): BP systolic 153–185; BP diastolic 92–111; PULSE 79–92; RESP 20; TEMP 36.3–36.6; O2SAT 88–99
[2021-03-01] MEDS: Insulin Lispro 100 UNIT/ML INSULN.PEN SC ×2 (06:41→11:52)
[2021-03-01 06:42] LABS: Anion Gap 5 (5-15); BUN 84 mg/dL (7-18); BUN/Creat Ratio 38.7 RATIO (10-20); Calcium,Total 8.4 mg/dL (8.5-10.1); Chloride 106 mmol/L (98-107); Creatinine, Serum 2.17 mg/dL (0.55-1.02); EST Glomerular Filtration Rate 23 mL/min (>60); Est Glom Filt Rate - Afr Amer 28 mL/min (>60); Estimated Creatinine Clearance 19.68 ml/min; Glucose 230 mg/dL (74-106); Potassium 4.1 mmol/L (3.5-5.1); Sodium Level 141 mmol/L (136-145)
[2021-03-01 06:45] LABS: Bedside Glucose 196 mg/dL (70-110)
[2021-03-01] MEDS: Enoxaparin 30 MG/0.3 ML Syringe SC (09:08)
[2021-03-01] MEDS: Cholecalciferol (VIT D3) 25 MCG TABLET (1,000 UNITS) PO (09:08)
[2021-03-01] MEDS: Pantoprazole Sodium 40 MG Tablet PO (09:08)
[2021-03-01] MEDS: Magnesium Chloride 64 MG Delay Rel.Tablet 128 MG PO (09:08)
[2021-03-01] MEDS: predniSONE 20 MG Tablet 40 MG PO (09:08)
[2021-03-01] MEDS: Carvedilol 12.5 MG Tablet PO (09:08)
[2021-03-01] MEDS: Furosemide 40 MG Tablet PO (09:08)
[2021-03-01] MEDS: Citalopram 20 MG Tablet PO (09:08)
[2021-03-01] MEDS: Amiodarone 200 MG Tablet PO (09:08)
[2021-03-01] MEDS: Losartan Potassium 100 MG Tablet PO (09:08)
--- NOTE | 2021-03-01 10:27 | PCM.DC ---
Discharge Instructions Diet Discharge Diet: No restrictions Activity Discharge Activity: Return to Normal Activity Dressing / Incision Call your doctor if you observe: Fever of 101 or Higher and Shortness of breath Follow Up Care Test Results: Test results from this visit will be discussed in further detail at your follow-up appointment, if applicable. Discharge Plan Admission Admit Date/Time: 02/24/21 14:05 Primary Reason for Your Visit: RSV bronchitis. Afib with RVR. Acute kidney injury. Attending Provider: Dedrick Rolon Primary Care Provider: Christal Sellers Consulting Providers: Johann Aparicio ; [place] Leahy ; Ben Ferrell ; Ramon Hines ; Dedrick German ; Heide Shipman ; Marcial Styles ; Mi Donovan ; Gildardo Layton ; Chandra Merino ; Dereck Hobbs PRICING ANALYST ; Rekha Gayle PRICING ANALYST ; Daja Nunez Discharge Orders/Prescriptions Prescriptions: New amiodarone 200 mg Tablet 200 mg PO BID Qty: 60 RF: 0 benzonatate 100 mg Capsule 100 mg PO 4X/DAY PRN PRN (Reason: COUGH) Qty: 20 RF: 0 carvedilol 12.5 mg Tablet 12.5 mg PO BID Qty: 60 RF: 0 furosemide 40 mg Tablet 40 mg PO DAILY Qty: 30 RF: 0 prednisone 10 mg tablet 10 mg PO DAILY Qty: 30 RF: 0 Continued losartan 100 mg tablet 100 mg PO DAILY RF: 0 atorvastatin 40 mg tablet 40 mg PO QHS RF: 0 ghvfjqpcnwbp-ejtqnceg-shcids Tablet 1 tab PO DAILY RF: 0 acetaminophen 325 mg capsule 650 mg PO Q6H PRN (Reason: Pain) RF: 0 alum-mag hydroxide-simeth 400-400-40 mg/5 mL suspension 10 ml PO DAILY PRN (Reason: Diarrhea) RF: 0 sodium chloride [Saline Mist] 0.65 % aerosol,spray 2 spray intranasal Q2H PRN (Reason: nasal moisture) RF: 0 hydrocortisone [Cortizone-10] 1 % cream 1 applic topical TID PRN (Reason: Itching) RF: 0 loperamide-simethicone 2-125 mg tablet 1 tab PO DAILY PRN (Reason: Diarrhea) RF: 0 Mucinex 1,200 mg tablet extended release 12hr 1,200 mg PO Q12H PRN (Reason: Congestion) RF: 0 albuterol sulfate 90 mcg/actuation HFA aerosol inhaler 1 puff inhalation Q4H PRN (Reason: shortness of breath or wheezing) RF: 0 magnesium oxide 400 mg magnesium capsule 400 mg PO DAILY RF: 0 cholecalciferol (vitamin D3) 25 mcg (1,000 unit) capsule 25 mcg PO DAILY RF: 0 ferrous sulfate 325 mg (65 mg iron) capsule, extended release 325 mg PO DAILY RF: 0 standard wheelchair 1 ea OTHER DAILY Qty: 1 RF: 0 (DME) standard wheelchair See Rx Instructions .Route .MEDSUPPLY Qty: 1 RF: 0 (DME) blood pressure test kit-large Kit See Rx Instructions .ROUTE .MEDSUPPLY Qty: 1 RF: 0 verapamil 120 mg tablet 120 mg PO DAILY Qty: 30 RF: 0 albuterol sulfate 2.5 mg /3 mL (0.083 %) solution for nebulization 2.5 mg inhalation Q6H Qty: 180 RF: 3 melatonin 5 mg capsule 5 mg PO QHS Qty: 90 RF: 3 cetirizine 10 mg Tablet 10 mg PO DAILY RF: 0 lorazepam 0.5 mg Tablet 0.5 mg PO Q4H PRN (Reason: sob) RF: 0 oxycodone 5 mg Tablet 5 mg PO Q4H PRN (Reason: Pain) RF: 0 PreserVision AREDS 7,160 unit- 113 mg-100 unit Tablet 1 tab PO BID RF: 0 Probiotic 10 billion cell Capsule 10,000 mmu cells PO DAILY RF: 0 lidocaine 4 % adhesive patch,medicated 1 patch topical QHS RF: 0 baclofen 10 mg tablet 10 mg PO BID PRN (Reason: muscle spasm) Qty: 60 RF: 2 citalopram 40 mg tablet 40 mg PO DAILY Qty: 90 RF: 3 pantoprazole 40 mg tablet,delayed release (DR/EC) 40 mg PO DAILY Qty: 30 RF: 3 Changed Lantus Solostar U-100 Insulin 100 unit/mL (3 mL) insulin pen 15 unit subcut QHS Qty: 0 RF: 0 Discontinued metformin 1,000 mg tablet 500 mg PO BID RF: 0 Boostrix Tdap 2.5-8-5 Lf-mcg-Lf/0.5mL syringe 0.5 ml IM ONCE Qty: 1 RF: 0 metoprolol tartrate 50 mg Tablet 50 mg PO BID Qty: 60 RF: 1 prednisone 20 mg Tablet 40 mg PO DAILY RF: 0 doxycycline hyclate 100 mg Tablet 100 mg PO BID RF: 0 Referrals / Follow Up: Christal Sellers MD [Primary Care Provider] - Within 2 Weeks ArmondBerlin MD [STAFF PHYSICIAN] - Within 1 Month Disposition Disposition (needs filled in before D/C Order can be placed): Home Health Service
--- NOTE | 2021-03-01 10:41 | PCM.DC.SUM ---
Providers Date of Admission: 02/24/21 Primary Care Physician: Dr. Christal Sellers MD Consultations 02/25/21 19:56 Consult: Cardiology Routine Consulting Provider: [facility] Reason for Consult: ST HR 130S ON CARDIZEM DRIP EMERGENT Consult: No Notified: Yes Date Notified: 02/25/21 Time Notified: 19:57 Method of Notification: Text 02/26/21 04:29 Consult: Cardiology Routine Consulting Provider: Mi Donovan Reason for Consult: atrial tachycardia, uncontrolled on cardizem and metoprolol EMERGENT Consult: No Notified: Yes Date Notified: 02/26/21 Time Notified: 04:29 Method of Notification: Verbal 02/27/21 10:23 Consult: Onc/Wound/precision optics technician Routine Comment: Reason for Consult:: right hip wound Reason For Visit: POST-OBSTRUCTIVE PNUEMONIA Diagnosis Discharge Diagnosis (1) RSV bronchitis: Status: Acute Code(s): J20.5 - Acute bronchitis due to respiratory syncytial virus (2) Paroxysmal atrial flutter: Status: Acute Code(s): I48.92 - Unspecified atrial flutter (3) JLUIS (acute kidney injury): Status: Acute Code(s): N17.9 - Acute kidney failure, unspecified (4) HFrEF (heart failure with reduced ejection fraction): Status: Acute Code(s): I50.20 - Unspecified systolic (congestive) heart failure Medications at Discharge Home Medications acetaminophen 325 mg capsule 650 mg PO Q6H PRN cap 08/09/20 albuterol sulfate 90 mcg/actuation aerosol inhaler 1 puff INHALATION Q4H PRN g 08/09/20 aluminum-mag hydroxide-simethicone 400 mg-400 mg-40 mg/5 mL oral susp 10 ml PO DAILY PRN ml 08/09/20 atorvastatin 40 mg tablet 40 mg PO QHS 08/09/20 cholecalciferol (vitamin D3) 25 mcg (1,000 unit) capsule 25 mcg PO DAILY 08/09/20 ferrous sulfate 325 mg (65 mg iron) capsule,extended release 325 mg PO DAILY cap 08/09/20 guaifenesin 1,200 mg tablet, extended release 12 hr 1,200 mg PO Q12H PRN 08/09/20 hydrocortisone 1 % topical cream 1 applic TOPICAL TID PRN 08/09/20 loperamide-simethicone 2 mg-125 mg tablet 1 tab PO DAILY PRN tab 08/09/20 losartan 100 mg tablet 100 mg PO DAILY 08/09/20 magnesium oxide 400 mg PO DAILY 08/09/20 insfplcuuevg-tosjersy-qoldao tablet 1 tab PO DAILY 08/09/20 sodium chloride 0.65 % nasal spray aerosol 2 spray INTRANASAL Q2H PRN 08/09/20 standard wheelchair #1 ea 08/11/20 standard wheelchair 1 ea OTHER DAILY #1 device 08/11/20 blood pressure test kit-large #1 ea 08/16/20 verapamil 120 mg tablet 120 mg PO DAILY #30 tab 08/16/20 albuterol sulfate 2.5 mg INHALATION Q6H #180 ml 08/24/20 baclofen 10 mg tablet 10 mg PO BID PRN #60 tab 11/03/20 melatonin 5 mg capsule 5 mg PO QHS #90 cap 11/21/20 citalopram 40 mg tablet 40 mg PO DAILY #90 tab 11/24/20 pantoprazole 40 mg tablet,delayed release 40 mg PO DAILY #30 tab 01/10/21 PreserVision AREDS 1 tab PO BID 02/24/21 Probiotic 10,000 mmu cells PO DAILY 02/24/21 cetirizine 10 mg PO DAILY 02/24/21 lidocaine 1 patch TOPICAL QHS 02/24/21 lorazepam 0.5 mg PO Q4H PRN 02/24/21 oxycodone 5 mg PO Q4H PRN 02/24/21 Lantus Solostar U-100 Insulin 15 unit SUBCUT QHS #0 ml 03/01/21 amiodarone 200 mg PO BID #60 tab 03/01/21 benzonatate 100 mg PO 4X/DAY PRN PRN #20 cap 03/01/21 carvedilol 12.5 mg PO BID #60 tab 03/01/21 furosemide 40 mg PO DAILY #30 tab 03/01/21 prednisone 10 mg PO DAILY #30 tab 03/01/21 Hospital Course Procedures 2-D Echocardiogram Summary of Care Provided Minutes Spent on Discharge: 40 Hospital Course: This 80-year-old female presents with shortness of breath. Patient was found to have RSV bronchitis. Course is complicated by atrial fibrillation with RVR and acute kidney injury. Today had a very long discussion with the patient's sons, William and Ellis. He had very good questions and one of them was how to prioritize her having cancer as well as her other medical issues. Basically some did offer that it would just depend on her overall condition at that time, the state of the cancer as well as the acuity of the medical condition. Expanded about there is no urgency on proceeding with cardiac catheterization as result clear evidence of a myocardial infarction but also if she were to require stent that may be more cumbersome for her with medications that she would require. They they had some other other questions but in regards to whether the patient should live with them and see doctors at the [facility] more stay down in [facility]. I told them to talk that over the mom to see what she would prefer. 1. RSV bronchitis supportive mgmt prednisone through 03/01 DC empiric abx 2. paroxysmal aflutter w RVR converted to NSR on 02/27 on PO carvedilol and amio follow up with cardiology 3. 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 Leahy follow up with cardiology 4. JLUIS due to diuresis cardiorenal? improving 5. NSCLC larger follow up with med and rad onc complicates care and overall recovery Physical Exam Const alert Resp normal respiratory effort, no retractions, no use of accessory muscles and clear to auscultation bilaterally Cardio regular rate, regular rhythm, S1 normal heart sound and S2 normal heart sound GI normal to inspection, nondistended, normoactive bowel sounds Weight / BMI Weight Weight: 77 kg Body Mass Index (BMI) 28.0 ABG / Lab / Microbiology Data Result Diagrams: 02/28/21 07:50 03/01/21 05:54 Laboratory: Laboratory Results - last 24 hr 02/28/21 11:40: POC Glucose 152 H 02/28/21 16:08: POC Glucose 250 H 02/28/21 21:31: POC Glucose 340 H 03/01/21 05:54: Sodium 141, Potassium 4.1, Chloride 106, Carbon Dioxide 30.0, Anion Gap 5, BUN 84 H, Creatinine 2.17 H, Estim Creat Clear Calc 19.68, Est GFR (MDRD) Af Amer 28 L, Est GFR (MDRD) Non-Af 23 L, BUN/Creatinine Ratio 38.7 H, Glucose 230 H, Calcium 8.4 L 03/01/21 06:40: POC Glucose 196 H Microbiology: Microbiology 02/24/21 11:45 Blood Culture (Wb) - Right Forearm Blood Culture - Preliminary No growth in 48 hours. 02/24/21 11:00 Blood Culture (Wb) - Right Forearm Blood Culture - Preliminary No growth in 48 hours. 02/24/21 13:33 Mucosa - Nasopharyngeal Respiratory Panel (PCR) - Final RSV B 02/24/21 10:49 Mucosa - Nasopharyngeal Influenza Types A,B Direct FA (FELIPA) - Final 02/24/21 10:49 Nasal Secretion SARS-CoV-2 Antigen (Rapid) - Final D/C Instructions Discharge Diet: No restrictions Call your doctor if you observe: Fever of 101 or Higher and Shortness of breath Meaningful Use Info Meaningful Use Diagnoses (Choose all that apply): CHF CHF REGULO/ARB ordered at discharge?: No Reason REGULO/ARB not ordered?: Worsening renal disease Documented LVEF (%): 15 Discharge Plan Admission Admit Date/Time: 02/24/21 14:05 Primary Reason for Your Visit: RSV bronchitis. Afib with RVR. Acute kidney injury. Attending Provider: Dedrick Rolon Primary Care Provider: Christal Sellers Consulting Providers: Johann Aparicio ; Berlin Leahy ; Ben eFrrell ; Ramon Hines ; Dedrick German ; Heide Shipman ; Marcial Styles ; Mi Donovan ; Gildardo Layton ; Chandra Merino ; Dereck Hobbs CARD GAME OPERATOR ; Rekha Gayle NP ; Daja Nunez PA Discharge Orders/Prescriptions Prescriptions: New amiodarone 200 mg Tablet 200 mg PO BID Qty: 60 RF: 0 benzonatate 100 mg Capsule 100 mg PO 4X/DAY PRN PRN (Reason: COUGH) Qty: 20 RF: 0 carvedilol 12.5 mg Tablet 12.5 mg PO BID Qty: 60 RF: 0 furosemide 40 mg Tablet 40 mg PO DAILY Qty: 30 RF: 0 prednisone 10 mg tablet 10 mg PO DAILY Qty: 30 RF: 0 Continued losartan 100 mg tablet 100 mg PO DAILY RF: 0 atorvastatin 40 mg tablet 40 mg PO QHS RF: 0 ddpuwrxneeeb-ceapuqpe-wopvll Tablet 1 tab PO DAILY RF: 0 acetaminophen 325 mg capsule 650 mg PO Q6H PRN (Reason: Pain) RF: 0 alum-mag hydroxide-simeth 400-400-40 mg/5 mL suspension 10 ml PO DAILY PRN (Reason: Diarrhea) RF: 0 sodium chloride [Saline Mist] 0.65 % aerosol,spray 2 spray intranasal Q2H PRN (Reason: nasal moisture) RF: 0 hydrocortisone [Cortizone-10] 1 % cream 1 applic topical TID PRN (Reason: Itching) RF: 0 loperamide-simethicone 2-125 mg tablet 1 tab PO DAILY PRN (Reason: Diarrhea) RF: 0 Mucinex 1,200 mg tablet extended release 12hr 1,200 mg PO Q12H PRN (Reason: Congestion) RF: 0 albuterol sulfate 90 mcg/actuation HFA aerosol inhaler 1 puff inhalation Q4H PRN (Reason: shortness of breath or wheezing) RF: 0 magnesium oxide 400 mg magnesium capsule 400 mg PO DAILY RF: 0 cholecalciferol (vitamin D3) 25 mcg (1,000 unit) capsule 25 mcg PO DAILY RF: 0 ferrous sulfate 325 mg (65 mg iron) capsule, extended release 325 mg PO DAILY RF: 0 standard wheelchair 1 ea OTHER DAILY Qty: 1 RF: 0 (DME) standard wheelchair See Rx Instructions .Route .MEDSUPPLY Qty: 1 RF: 0 (DME) blood pressure test kit-large Kit See Rx Instructions .ROUTE .MEDSUPPLY Qty: 1 RF: 0 verapamil 120 mg tablet 120 mg PO DAILY Qty: 30 RF: 0 albuterol sulfate 2.5 mg /3 mL (0.083 %) solution for nebulization 2.5 mg inhalation Q6H Qty: 180 RF: 3 melatonin 5 mg capsule 5 mg PO QHS Qty: 90 RF: 3 cetirizine 10 mg Tablet 10 mg PO DAILY RF: 0 lorazepam 0.5 mg Tablet 0.5 mg PO Q4H PRN (Reason: sob) RF: 0 oxycodone 5 mg Tablet 5 mg PO Q4H PRN (Reason: Pain) RF: 0 PreserVision AREDS 7,160 unit- 113 mg-100 unit Tablet 1 tab PO BID RF: 0 Probiotic 10 billion cell Capsule 10,000 mmu cells PO DAILY RF: 0 lidocaine 4 % adhesive patch,medicated 1 patch topical QHS RF: 0 baclofen 10 mg tablet 10 mg PO BID PRN (Reason: muscle spasm) Qty: 60 RF: 2 citalopram 40 mg tablet 40 mg PO DAILY Qty: 90 RF: 3 pantoprazole 40 mg tablet,delayed release (DR/EC) 40 mg PO DAILY Qty: 30 RF: 3 Changed Lantus Solostar U-100 Insulin 100 unit/mL (3 mL) insulin pen 15 unit subcut QHS Qty: 0 RF: 0 Discontinued metformin 1,000 mg tablet 500 mg PO BID RF: 0 Boostrix Tdap 2.5-8-5 Lf-mcg-Lf/0.5mL syringe 0.5 ml IM ONCE Qty: 1 RF: 0 metoprolol tartrate 50 mg Tablet 50 mg PO BID Qty: 60 RF: 1 prednisone 20 mg Tablet 40 mg PO DAILY RF: 0 doxycycline hyclate 100 mg Tablet 100 mg PO BID RF: 0 Referrals / Follow Up: Christal Sellers MD [Primary Care Provider] - Within 2 Weeks Berlin Leahy MD [STAFF PHYSICIAN] - Within 1 Month Disposition Disposition (needs filled in before D/C Order can be placed): Home Health Service Charges/Coding Visit Charges Inpatient E&M: 90517 Disch Hosp
--- NOTE | 2021-03-01 11:49 | CASEMGMT ---
Physician will discharge patient today. ALANA called [facility] and spoke with Magui Mujica, grain oilseed or pasture farm worker. ALANA let her know patient will be returning today. She will need 2L of O2 with exertion. Magui said that patient has a concentrator, but not portable tanks. Her concentrator is from [employer]. Patient will also need PT/OT. ALANA will include an order for this with her d/c paperwork. ALANA will fax the d/c instructions. ALANA faxed d/c instructions and order for home health PT/OT to [facility]. ALANA also wrote on fax face sheet that prescriptions were sent to [facility]. Plan: d/c back to [facility] Jaime
--- NOTE | 2021-03-01 12:01 | CASEMGMT ---
Per [facility], pt's order is for 2L continuous, which is what she qualified for here. Per [facility] JACOBSEN, pt does not have portable tanks there and per Willow, son returned tanks earlier this week, stating that pt does not need them. [facility] aware to re-deliver tanks and state will also update son. Charity WARNER and Binu SMITH aware that pt to wear 2L continuous. CM to follow for any further discharge planning/needs. Ann SMITH CM
[2021-03-01 12:12] LABS: Bedside Glucose 158 mg/dL (70-110)
--- NOTE | 2021-03-01 13:03 | CASEMGMT ---
ALANA called patient's son William and left him a voice mail requesting a return call. Ashley LEPE
--- NOTE | 2021-03-02 09:44 | CASEMGMT ---
[facility] and [facility] pt [facility] with them. Per Charity WARNER, JIM AL was not aware of [facility] as they asked her to place order for HHC at discharge. [facility] to [facility] with [facility] order and [facility] states they will resume care. Ann SMITH CM
== END 2021-03-01 16:23 | disposition home health service (06) | DRG 202 ==
LOC: ED 14:19 → PCU 14:23
PROVIDERS: Internal Medicine; Admitting Provider Hospitalist; Emergency Provider Emergency Medicine; PCP Family Medicine
DX: J20.5 Acute bronchitis due to respiratory syncytial virus (principal); N17.9 Acute kidney failure, unspecified; C34.31 Malignant neoplasm of lower lobe, right bronchus or lung; I48.4 Atypical atrial flutter; I50.22 Chronic systolic (congestive) heart failure; I11.0 Hypertensive heart disease with heart failure; I48.0 Paroxysmal atrial fibrillation; E11.36 Type 2 diabetes mellitus with diabetic cataract; J45.909 Unspecified asthma, uncomplicated; F32.A Depression, unspecified; F41.9 Anxiety disorder, unspecified; E78.00 Pure hypercholesterolemia, unspecified; J43.9 Emphysema, unspecified; R29.6 Repeated falls; Z66 Do not resuscitate; Z99.81 Dependence on supplemental oxygen; Z79.4 Long term (current) use of insulin; Z79.01 Long term (current) use of anticoagulants; Z79.899 Other long term (current) drug therapy; Z87.891 Personal history of nicotine dependence
CPT/HCPCS: 36415; 71045; 71275; 80048; 80053; 81001; 82570; 82962; 83735; 83880; 84100; 84484; 84540; 85025; 85610; 85730; 87040; 87426; 87633; 87804; 93005; 93306; 94640; 94667; 97162; 97166; 97530; 99285; J7030; Q9967; A4216; J0696; J1940

== ENCOUNTER → 2021-03-15 05:00 | Outpatient (REF) | payer MEDICARE, SELFPAY ==
[2021-03-15 07:48] LABS: Hematocrit 33.4 % (37-47); Hemoglobin 10.6 g/dL (12.0-15.0); Mean Corp Hgb Conc 31.7 g/dL (32-36); Mean Corpuscular Hgb 28.9 pg (27.0-32.0); Mean Platelet Vol. 10.8 fl (6.2-12.0); Platelet Count 179 K/mm3 (150-450); RBC Distribution Width CV 12.9 % (11.6-14.6); RBC Distribution Width SD 42.4 fl (35.1-43.9); Red Blood Count 3.67 M/mm3 (4.2-5.4); White Blood Count 8.3 K/mm3 (4.4-11.0)
[2021-03-15 07:56] LABS: Anion Gap 3 (5-15); BUN 46 mg/dL (7-18); BUN/Creat Ratio 25.1 RATIO (10-20); Calcium,Total 8.6 mg/dL (8.5-10.1); Chloride 106 mmol/L (98-107); Creatinine, Serum 1.83 mg/dL (0.55-1.02); EST Glomerular Filtration Rate 28 mL/min (>60); Est Glom Filt Rate - Afr Amer 34 mL/min (>60); Glucose 317 mg/dL (74-106); Potassium 4.5 mmol/L (3.5-5.1); Sodium Level 140 mmol/L (136-145)
== END ==
PROVIDERS: PCP Family Medicine; Visit Provider Family Medicine
DX: N18.9 Chronic kidney disease, unspecified (principal)
CPT/HCPCS: 36415; 80048; 85027

== ENCOUNTER 2021-03-15 07:37 | Outpatient (RCR) | payer MEDICARE, SELFPAY ==
[2021-02-21 00:33] VITALS: BP 187/88; PULSE 87; TEMP 36.8
== END 2021-03-15 07:39 | disposition home or self-care (01) ==
LOC: WC 07:37
PROVIDERS: PCP Family Medicine; Visit Provider Nurse Practitioner Family
DX: Z09 Encounter for follow-up examination after completed treatment for conditions other than malignant neoplasm (principal)

== ENCOUNTER → 2021-04-02 | Outpatient (REF) | payer MEDICARE, SELFPAY | END | disposition home or self-care (01) | LOC: OLS.HOSPIC 08:25 | PROVIDERS: PCP Family Medicine; Visit Provider Internal Medicine Cardiovascular Disease | DX: U07.1 COVID-19 (principal) | CPT/HCPCS: 87635; U0003; U0005 ==